=== PATIENT | female | born 1945 | race Two or more races ===

== ENCOUNTER 2023-05-14 21:06 | Emergency (ER) | payer OTHER ==
[~2023-05-14] VITALS: Ht 167.6 cm; Wt 103.3 kg
[~2023-05-14 21:06] MED LIST: APIX5TAB PO; AZIT-81 PO; DOC100C PO; DOXY-346 PO; FLUO20CA19 PO; GABA300C PO; HUMULOG; LANTUS SUBCUT; LEVO25TA6 PO; METF100097 PO; PANTOPRAZOLE 40MG TABLETS PO; SENN8.6T21 PO; SIMV40TA18 PO; VALS160T53 PO
[2023-05-14 22:24] LABS: Basophils # (auto) 0 10 ^3/uL (0-0.2); Eosinophils # (auto) 0.3 10 ^3/uL (0-0.8); Eosinophils % (auto) 3.1 % (0.0-7.0); Mean Corpuscular Volume 81.3 fL (80.0-100.0); Nucleated Red Blood Cells % 0.1 %; White Blood Cell 10.9 10^3/uL (4.4-10.8)
[2023-05-14 22:25] LABS: Basophils % (auto) 0.3 % (0.0-2.0); Hematocrit 37.5 % (36.0-46.0); Lymphocytes # (auto) 1.8 10 ^3/uL (0.4-5.4); Lymphocytes % (auto) 16.3 % (10.0-50.0); Monocytes # (auto) 1.2 10 ^3/uL (0-1.3); Monocytes % (auto) 11.4 % (0.0-12.0); Neutrophils # (auto) 7.5 10 ^3/uL (1.6-8.6); Neutrophils % (auto) 68.9 % (37.0-80.0); Red Blood Cells 4.61 10^6/uL (4.0-5.20); Red Cell Distribution Width 14.5 % (11.8-14.3)
[2023-05-14 22:40] LABS: Albumin 3.4 g/dL (3.4-5.0); Calcium 8.8 mg/dL (8.5-10.1)
[2023-05-14 22:44] LABS: BUN/Creatinine Ratio 14.1 (10.0-20.0); Bilirubin, Total 0.3 mg/dL (0.2-1.0); Potassium 4.4 mmol/L (3.5-5.1); Total Protein 7.2 g/dL (6.4-8.2)
[2023-05-15 01:53] VITALS: BP 133/56
== END 2023-05-15 01:57 | disposition home or self-care (01) ==
LOC: ER 21:11
DX: N39.0 Urinary tract infection, site not specified (principal); E11.9 Type 2 diabetes mellitus without complications; E78.5 Hyperlipidemia, unspecified; I10 Essential (primary) hypertension; R06.02 Shortness of breath
CPT/HCPCS: 36415; 71045; 80053; 83880; 84484; 85025; 93005

== ENCOUNTER 2023-05-26 15:55 | Emergency (ER) | payer OTHER ==
[~2023-05-26] VITALS: Ht 165.1 cm; Wt 100.0 kg
[2023-05-26 17:04] LABS: Basophils # (auto) 0.1 10 ^3/uL (0-0.2); Basophils % (auto) 1.3 % (0.0-2.0); Eosinophils # (auto) 0.3 10 ^3/uL (0-0.8); Eosinophils % (auto) 2.4 % (0.0-7.0); Hematocrit 36.8 % (36.0-46.0); Hemoglobin 11.7 g/dL (12.2-16.2); Lymphocytes # (auto) 2.3 10 ^3/uL (0.4-5.4); Lymphocytes % (auto) 20.9 % (10.0-50.0); Mean Corpuscular Hemoglobin 26.2 pg (28.0-32.0); Mean Corpuscular Hgb Conc. 31.8 g/dL (32.0-36.0); Mean Corpuscular Volume 82.2 fL (80.0-100.0); Monocytes # (auto) 1.2 10 ^3/uL (0-1.3); Monocytes % (auto) 11.1 % (0.0-12.0); Neutrophils % (auto) 64.3 % (37.0-80.0); Nucleated Red Blood Cells % 0.1 %; Red Blood Cells 4.47 10^6/uL (4.0-5.20); Red Cell Distribution Width 14.8 % (11.8-14.3); White Blood Cell 10.9 10^3/uL (4.4-10.8)
[2023-05-26 17:25] LABS: Albumin 3.5 g/dL (3.4-5.0); Calcium 8.9 mg/dL (8.5-10.1); Potassium 4.3 mmol/L (3.5-5.1)
[2023-05-26 17:27] LABS: BUN/Creatinine Ratio 14.4 (10.0-20.0); Bilirubin, Total 0.4 mg/dL (0.2-1.0); Total Protein 7.7 g/dL (6.4-8.2)
[2023-05-26 19:02] VITALS: BP 145/83
== END 2023-05-26 19:07 | disposition home or self-care (01) ==
LOC: ER 15:55 → EDBD 15:55 → ER 19:03
DX: R53.1 Weakness (principal); E11.9 Type 2 diabetes mellitus without complications; G30.9 Alzheimer's disease, unspecified; I25.10 Atherosclerotic heart disease of native coronary artery without angina pectoris; E78.5 Hyperlipidemia, unspecified; I10 Essential (primary) hypertension; Z88.0 Allergy status to penicillin
CPT/HCPCS: 36415; 71045; 80053; 84484; 85025; 93005

== ENCOUNTER 2023-10-13 12:23 | Emergency (ER) | payer OTHER ==
[~2023-10-13] VITALS: Ht 154.9 cm; Wt 100.0 kg
[2023-10-13 12:54] LABS: Basophils # (auto) 0.1 10 ^3/uL (0-0.2); Basophils % (auto) 0.6 % (0.0-2.0); Eosinophils # (auto) 0.3 10 ^3/uL (0-0.8); Eosinophils % (auto) 2.9 % (0.0-7.0); Red Cell Distribution Width 14.9 % (11.8-14.3)
[2023-10-13 12:55] LABS: Hematocrit 36.4 % (36.0-46.0); Hemoglobin 11.5 g/dL (12.2-16.2); Lymphocytes % (auto) 20.2 % (10.0-50.0); Mean Corpuscular Hemoglobin 25.8 pg (28.0-32.0); Mean Corpuscular Hgb Conc. 31.7 g/dL (32.0-36.0); Mean Corpuscular Volume 81.4 fL (80.0-100.0); Monocytes % (auto) 10.2 % (0.0-12.0); Neutrophils # (auto) 6.4 10 ^3/uL (1.6-8.6); Neutrophils % (auto) 66.1 % (37.0-80.0); Nucleated Red Blood Cells % 0.1 %; Red Blood Cells 4.48 10^6/uL (4.0-5.20); White Blood Cell 9.7 10^3/uL (4.4-10.8)
[2023-10-13 13:26] LABS: Alanine Aminotransferase 18 U/L (7-40); Alkaline Phosphatase 116 U/L (46-116); Anion Gap 6 (5-15); Aspartate Aminotransferase 24 U/L (13-40); BUN/Creatinine Ratio 22.4 (10.0-20.0); Blood Urea Nitrogen 34 mg/dL (9-23); Calcium 9.1 mg/dL (8.5-10.1); Carbon Dioxide 27 mmol/L (20-30); Chloride 101 mmol/L (98-107); Glucose 298 mg/dL (74-106); Potassium 5.1 mmol/L (3.5-5.1); Sodium 134 mmol/L (136-145)
[2023-10-13 13:27] LABS: Albumin 3.9 g/dL (3.2-4.8); Bilirubin, Total 0.3 mg/dL (0.2-1.0); Total Protein 6.9 g/dL (5.7-8.2)
[2023-10-13 13:38] VITALS: PULSE 60; RESP 10; O2SAT 97
[2023-10-13] MEDS ORDERED: SODIUM CHLORIDE 0.9% 500 ML IV ONE (15:15)
[2023-10-13 16:19] LABS: Urine Bacteria NONE SEEN /hpf (None Seen); Urine Blood Negative /uL (Negative); Urine Clarity Clear (Clear); Urine Color Colorless (Yellow); Urine Mucus FEW (None Seen); Urine Protein, UAD Negative (Negative); Urine Specific Gravity 1.015 (1.001-1.035); Urine Urobilinogen Normal (Negative); Urine WBC 1 /hpf (0 - 5)
[2023-10-13] MEDS ORDERED: MECLIZINE HCL 25 MG TAB PO ONE (17:30)
[2023-10-13 19:30] VITALS: PULSE 68; RESP 20; O2SAT 96
[2023-10-13] MEDS ORDERED: hydrALAZINE HCL 20 MG/ML VL IV PRN (23:45)
[2023-10-13] MEDS ORDERED: DEXTROSE (50%) 50ML SYRG IV PRN (23:45)
[2023-10-14] MEDS: APIXABAN 5 MG TAB PO SCH ×2 (00:03→11:16)
[2023-10-14] MEDS: GABAPENTIN 300 MG CAP PO SCH ×2 (06:56→14:13)
[2023-10-14] MEDS: InsuLIN REG 1unit/0.01ml Soln (100units/ml) SC SCH ×2 (06:59→11:46)
[2023-10-14] MEDS: ACCU-CHEK COMFORT CURVE STRIP VI SCH ×2 (06:59→11:47)
[2023-10-14] MEDS ORDERED: LEVOTHYROXINE SODIUM 25 MCG TAB PO SCH (07:00)
[2023-10-14] MEDS ORDERED: PANTOPRAZOLE 40 MG TAB PO SCH (10:00)
[2023-10-14] MEDS ORDERED: FLUoxetine HCL 20 MG CAP PO SCH (10:00)
[2023-10-14] MEDS ORDERED: VALSARTAN 80 MG TAB PO SCH (10:00)
[2023-10-14 13:46] VITALS: BP 160/65; TEMP 98.4
[2023-10-14 13:47] VITALS: PULSE 70; RESP 18; O2SAT 97
[2023-10-14] MEDS ORDERED: ATORVASTATIN 20 MG TAB PO SCH (22:00)
[2023-10-14] MEDS ORDERED: InsuLIN REG 1unit/0.01ml Soln (100units/ml) SC SCH (22:00)
== END 2023-10-14 16:43 | disposition home or self-care (01) ==
LOC: ER 12:23 → EDBD 12:23 → ER 10-14 16:43
DX: R42 Dizziness and giddiness (principal); E11.65 Type 2 diabetes mellitus with hyperglycemia; E78.5 Hyperlipidemia, unspecified; I10 Essential (primary) hypertension; Z91.81 History of falling; Z88.0 Allergy status to penicillin
CPT/HCPCS: 36415; 70450; 72125; 80053; 81001; 82962; 84484; 85025; 93005; 96372; 96374; 97163; 99285; J0360; J1815; J8597

== ENCOUNTER 2024-01-03 13:29 | Emergency (ER) | payer OTHER, MEDICAID ==
[~2024-01-03] VITALS: Ht 162.6 cm; Wt 136.0 kg
[2024-01-03 15:10] VITALS: BP 149/56; PULSE 75; RESP 20; O2SAT 97
== END 2024-01-03 17:03 | disposition home or self-care (01) ==
LOC: EDBD 13:29 → ER 13:29
DX: S52.501A Unspecified fracture of the lower end of right radius, initial encounter for closed fracture (principal); S80.01XA Contusion of right knee, initial encounter; E11.9 Type 2 diabetes mellitus without complications; E78.5 Hyperlipidemia, unspecified; I10 Essential (primary) hypertension; Z88.0 Allergy status to penicillin; W18.09XA Striking against other object with subsequent fall, initial encounter; Y93.89 Activity, other specified; Y92.89 Other specified places as the place of occurrence of the external cause; Y99.8 Other external cause status
CPT/HCPCS: 29125; 71045; 73090; 73590

== ENCOUNTER 2025-02-04 09:12 | Inpatient (IN) | payer OTHER, MEDICAID ==
[~2025-02-04] VITALS: Ht 165.1 cm; Wt 96.2 kg
[2025-02-04] MEDS: IPRATROPIUM BROM 0.5 MG/2.5ML INH SOL ONE (08:44)
[2025-02-04] MEDS: ALBUTEROL SULF 2.5 MG/0.5ML(0.5%) NEB SOLN ONE (08:44)
[~2025-02-04 09:12] MED LIST changes: +AZIT-185 PO; -AZIT-81 PO
[2025-02-04 09:30] VITALS: PULSE 72; RESP 26; O2SAT 94
[2025-02-04] MEDS: ALBUTEROL SULF 2.5 MG/0.5ML(0.5%) NEB SOLN NEB ONE (09:46)
[2025-02-04] MEDS: IPRATROPIUM BROM 0.5 MG/2.5ML INH SOL NEB ONE (09:46)
[2025-02-04 09:54] LABS: Basophils # (auto) 0.1 10 ^3/uL (0-0.2); Basophils % (auto) 0.6 % (0.0-2.0); Chloride 100 mmol/L (98-107); Eosinophils # (auto) 0.1 10 ^3/uL (0-0.8); Eosinophils % (auto) 0.7 % (0.0-7.0); Hematocrit 41.7 % (36.0-46.0); Hemoglobin 13.1 g/dL (12.2-16.2); Lymphocytes # (auto) 1.3 10 ^3/uL (0.4-5.4); Lymphocytes % (auto) 11.6 % (10.0-50.0); Mean Corpuscular Hgb Conc. 31.5 g/dL (32.0-36.0); Mean Corpuscular Volume 85.6 fL (80.0-100.0); Monocytes # (auto) 1.1 10 ^3/uL (0-1.3); Monocytes % (auto) 9.8 % (0.0-12.0); Neutrophils # (auto) 8.5 10 ^3/uL (1.6-8.6); Neutrophils % (auto) 77.3 % (37.0-80.0); Nucleated Red Blood Cells % 0.1 %; Platelet Count (auto) 237 10^3/uL (140-450); Potassium 4.6 mmol/L (3.5-5.1); Red Blood Cells 4.87 10^6/uL (4.0-5.20); Red Cell Distribution Width 13.5 % (11.8-14.3); Sodium 133 mmol/L (136-145); White Blood Cell 11.1 10^3/uL (4.4-10.8)
[2025-02-04 09:55] LABS: Anion Gap 8 (5-15); Calcium 9.9 mg/dL (8.7-10.4); Carbon Dioxide 25 mmol/L (20-31)
[2025-02-04 10:00] LABS: BUN/Creatinine Ratio 12.9 (10.0-20.0); Blood Urea Nitrogen 18 mg/dL (9-23)
--- NOTE | 2025-02-04 10:00 | ED.PDOC ---
SOB-HPI HPI Comments 79 y.o female with PMHx of Alzheimer, HTN, and DM, presents to the ED for a chief complaint SOB. EMS reports patient was diagnosed with bronchitis 2 days ago at [facility] and given antibiotics but patient's state worsened. Patient was 86-87% on room air on scene, EMS placed patient on 10 liters non rebreather increasing saturation levels to 90-100%. Patient's son reported patient is more altered than her usual baseline due to Alzheimer. Patient has oxygen at home as needed. 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: No Pertinent 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 ELL TEACHER History Family History Family History: Unknown Social History Smoker: Non-Smoker Alcohol: Denies ETOH Use Drugs: Denies Drug Use Lives In: Home Unable to Obtain due to: Altered Mental Status, Other (Alzheimers ) Physical Exam General Appearance: Moderate Distress, Other (More altered than usual ) HEENT: Normal ENT Inspection, Pharynx Normal, TMs Normal Neck: Full Range of Motion, Non-Tender, Normal, Normal Inspection Respiratory: Decreased Breath Sounds (bilaterally equally ) Cardiovascular: No Edema, No JVD, No Murmur, No Gallop, Normal Peripheral Pulses, Regular Rate/Rhythm Breast Exam: Deferred Gastrointestinal: No Organomegaly, Non Tender, No Pulsatile Mass, Normal Bowel Sounds, Soft Genitalia: Deferred Pelvic: Deferred Rectal: Deferred Extremities: Pedal edema (trace edema ) Musculoskeletal : Apperance: Normal Neurologic: Alert, 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 Was a procedure done?: No Differential Dx Differential Diagnosis: Asthma, Bronchitis, CHF, COPD, Myocardial infarction, Pneumonia, Pulmonary Embolism, Respiratory Distress, URI X-Ray, Labs, Meds, VS Vital Signs Date Time Temp Pulse Resp B/P (MAP) Pulse Ox O2 Delivery O2 Flow Rate FiO2 02/04/25 10:22 152/58 02/04/25 10:00 91 20 116/55 (75) 97 02/04/25 09:47 17 98 Non-Rebreather 15 N/A 02/04/25 09:30 72 26 94 Non-Rebreather 15 N/A 02/04/25 09:30 97.8 74 26 152/58 (89) 96 97.8 02/04/25 09:20 67 02/04/25 09:17 97.4 76 17 197/84 (121) 99 Lab Test 02/04/25 12:00 02/04/25 10:34 02/04/25 09:36 Range/Units Influenza Type A Antigen Pending Influenza Type B Antigen Pending SARS-CoV-2 Antigen (Rapid) Pending Troponin I High Sensitivity 64 *H 66 *H </=34 ng/L White Blood Count 11.1 H 4.4-10.8 10^3/uL Red Blood Count 4.87 4.0-5.20 10^6/uL Hemoglobin 13.1 12.2-16.2 g/dL Hematocrit 41.7 36.0-46.0 % Mean Corpuscular Volume 85.6 80.0-100.0 fL Mean Corpuscular Hemoglobin 27.0 L 28.0-32.0 pg Mean Corpuscular Hemoglobin Concent 31.5 L 32.0-36.0 g/dL Red Cell Distribution Width 13.5 11.8-14.3 % Platelet Count 237 140-450 10^3/uL Mean Platelet Volume 10.1 6.9-10.8 fL Neutrophils (%) (Auto) 77.3 37.0-80.0 % Lymphocytes (%) (Auto) 11.6 10.0-50.0 % Monocytes (%) (Auto) 9.8 0.0-12.0 % Eosinophils (%) (Auto) 0.7 0.0-7.0 % Basophils (%) (Auto) 0.6 0.0-2.0 % Neutrophils # (Auto) 8.5 1.6-8.6 10 ^3/uL Lymphocytes # (Auto) 1.3 0.4-5.4 10 ^3/uL Monocytes # (Auto) 1.1 0-1.3 10 ^3/uL Eosinophils # (Auto) 0.1 0-0.8 10 ^3/uL Basophils # (Auto) 0.1 0-0.2 10 ^3/uL Nucleated Red Blood Cells 0.1 % Sodium Level 133 L 136-145 mmol/L Potassium Level 4.6 3.5-5.1 mmol/L Chloride Level 100 98-107 mmol/L Carbon Dioxide Level 25 20-31 mmol/L Anion Gap 8 5-15 Blood Urea Nitrogen 18 9-23 mg/dL Creatinine 1.39 H 0.550-1.02 mg/dL Glomerular Filtration Rate Calc 38 >90 mL/min BUN/Creatinine Ratio 12.9 10.0-20.0 Serum Glucose 322 H 74-106 mg/dL Calcium Level 9.9 8.7-10.4 mg/dL B-Type Natriuretic Peptide 454.52 0-100 pg/mL Current Medications Medications (Trade) Dose Ordered Sig/Amisha Route Start Time Stop Time Status Last Admin Furosemide (Lasix Injection) 40 mg ONCE ONCE IV 02/04/25 09:30 02/04/25 09:32 DC 02/04/25 10:22 Albuterol (Ventolin Medneb) 5 mg ONCE ONCE NEB 02/04/25 09:30 02/04/25 09:32 DC 02/04/25 09:46 Ipratropium [place] (Atrovent Medneb) 0.5 mg ONCE ONCE NEB 02/04/25 09:30 02/04/25 09:32 DC 02/04/25 09:46 [place] [id number] Ph: [phone] DIAGNOSTIC IMAGING Diagnostic Imaging Report : [id number] Signed PATIENT: LISA BARBOURT: [id number] UNIT: [id number] : 1945 LOC: ER ROOM / BED: / AGE / SEX: 79 / F ADM STATUS: REG ER SERVICE 6 ORDERING PHYSICIAN: PARISA WILEY MD PROCEDURE(s): CXRP - CHEST PORTABLE REASON: sob ORDER NUMBER(s): [id number], ACCESSION NUMBER(s): [id number] CHEST RADIOGRAPH Indication: sob Technique: Single frontal view of the chest was obtained Comparison: XY CHEST XRAY 1 VIEW on DOS: 01/03/24 FINDINGS: Lines and Tubes: Dual-chamber pacemaker with right atrial and ventricular leads. Lungs: Left basilar opacity. Pleura: No effusion. No pneumothorax. Cardiomediastinal contours: Lucency overlies the cardiac silhouette consistent with hiatal hernia. Bones: No acute osseous abnormality. IMPRESSION: 1. Left basilar opacities which may reflect atelectasis or pneumonia. 2. Hiatal hernia. ATED BY: RONAL FRIEDMAN MD DICTATED DATE/TIME: 02/04/25 101 SIGNED BY: RONAL FRIEDMAN MD SIGNED DATE/TIME: 02/04/25 101 CC: Time of 1ST Reevaluation: 09:46 Reevaluation 1ST: Unchanged Patient Education/Counseling: Other Family Education/Counseling: No Family Present Additional Information - I reviewed the following notes from patient's past medical encounters: 01/03/24 right wrist fracture - The following tests were ordered, and results were reviewed by me: Covid and Influenza swabs, EKG, PHA, Lab including BNP, BMP, CBC and troponin x 3 - Additional information was gathered from interviewing the following i ndependent Historian: Paramedics - I reviewed and agreed with the following test results read by other provider: CXR - I discussed treatments and results with medical personnel and: Family Departure 1 Departure Time of Disposition: 12:46 Impression: Primary Impression: Altered mental state Qualified Codes: R41.0 - Disorientation, unspecified Additional Impressions: Pneumonia Qualified Codes: J18.9 - Pneumonia, unspecified organism Elevated troponin Renal insufficiency Respiratory failure with hypoxia Qualified Codes: J96.21 - Acute and chronic respiratory failure with hypoxia Disposition: ADMITTED INPATIENT Admit to: Tele Condition: Serious Critical Care Note Critical Care Time?: Yes (55 min-critical care time only) Critical care comment: Due to concerns for patients condition deteriorating, the care required my highest level of attention and readiness to intervene. I assessed the patient, reviewed the medical records, ordered the appropriate tests and treatments, then reassessed for results and responsiveness. I communicated with medical personnel and consultants and formulated a plan of care. Total critical care time excludes any procedures Stability Stability form required: No Heart Score Heart Score: Heart Score Response (Comments) Value History Slightly Suspicious 0 EKG Normal 0 Age >65 2 Risk Factors >3 or Hx ASHD 2 Troponin Normal limit 0 Total 4 I personally scribed for PARISA WILEY MD ([facility]) on 02/04/25 at 10:00. Electronically submitted by Beronica Jones ([facility] I personally scribed for [facility] WI[facility] MD ([facility] on 02/04/25 at 10:55. Electronically submitted by Beronica Jones ([facility]). PARISA WILEY MD Feb 04, 2025 10:00
[2025-02-04 10:05] LABS: Glucose 322 mg/dL (74-106)
--- NOTE | 2025-02-04 10:20 | DVH ---
CHEST RADIOGRAPH Indication: sob Technique: Single frontal view of the chest was obtained Comparison: XY CHEST XRAY 1 VIEW on DOS: 01/03/24 FINDINGS: Lines and Tubes: Dual-chamber pacemaker with right atrial and ventricular leads. Lungs: Left basilar opacity. Pleura: No effusion. No pneumothorax. Cardiomediastinal contours: Lucency overlies the cardiac silhouette consistent with hiatal hernia. Bones: No acute osseous abnormality. IMPRESSION: 1. Left basilar opacities which may reflect atelectasis or pneumonia. 2. Hiatal hernia.
[2025-02-04] MEDS: FUROSEMIDE 40 MG/4 ML VIAL IV ONE (10:22)
[2025-02-04 12:56] LABS: Rapid Influenza A Negative (Negative); Rapid Influenza B Negative (Negative)
[2025-02-04 12:57] LABS: COVID19 ANTIGEN SOFIA FIA NEGATIVE (NEGATIVE)
[2025-02-04] MEDS: cefTRIAXone 1GM/50ML D5W 50 ML IV ONE (13:14)
[2025-02-04] MEDS: ASPirin 81 mg TAB PO ONE (13:14)
[2025-02-04] MEDS ORDERED: IPRATROPIUM BROM 0.5 MG/2.5ML INH SOL NEB PRN (15:30)
[2025-02-04] MEDS ORDERED: ALBUTEROL SULF 2.5 MG/0.5ML(0.5%) NEB SOLN NEB PRN (15:30)
[2025-02-04] MEDS ORDERED: AZITHROMYCIN 500MG/ 250ML 250 ML IV ONE (15:30)
[2025-02-04] MEDS ORDERED: DEXTROSE (50%) 50ML SYRG IV PRN (15:45)
[2025-02-04] MEDS: AZITHROMYCIN 500MG/ 250ML 250 ML IV ONE (15:45)
[2025-02-04] MEDS ORDERED: DICY20TA2 PO (15:47)
--- NOTE | 2025-02-04 16:07 | DVHHP2 ---
History of Present Illness Reason for Visit: Shortness of breath History of Present Illness This 79-year-old female with past medical history of diabetes, hypertension, Alzheimer's, hyperlipidemia, hypothyroidism, neuropathy, s/p PPM presents to the ED with a chief complaint of shortness of breath. The patient is alert and jaspal ented to name and poor historian. Sumaya reports patient symptoms started a few days ago. Grandson states that the patient was seen by her PCP two days ago and was given oral antibiotics. Grandson states symptoms had worsened, shortness of breath with hypoxemia for which prompted the ED visit. The patient denies fever, chills, chest pain, abdominal pain or other acute symptoms. Past Medical History As stated in HPI Past Surgical History Permanent pacemaker Family History Reviewed, non-contributory to the management of this case. Past Social History The patient lives at home, denies smoking, alcohol or illicit drugs abuse. Review of Systems Constitutional: Yes: Malaise; No: Fever, Chills, Sweats, Weakness, Other Eyes: No: Pain, Vision change, Conjunctivae inflammation, Eyelid inflammation, Other, Redness ENT: No: Ear pain, Ear discharge, Nose pain, Nose discharge, Nose congestion, Mouth pain, Mouth swelling, Throat pain, Throat swelling, Other Respiratory: Cough, Shortness of breath, Sputum; No: Dry, SOB with excertion, Wheezing, Hemoptysis, Pleuritic Pain, Wheezing, Other Cardiovascular: No: Chest Pain, Palpitations, Orthopnea, Paroxysmal Noc. Dyspnea, Edema, Lt Headedness, Other Gastrointestinal: No: Nausea, Vomiting, Abdominal Pain, Diarrhea, Constipation, Melena, Hematochezia, Other Genitourinary: No Dysuria, No Frequency, No Incontinence, No Hematuria, No Retention, No Other Musculoskeletal: No: other, neck pain, shoulder pain, arm pain, back pain, hand pain, leg pain, foot pain Skin: No: Rash, Lesions, Jaundice, Bruising, Other Neurological: No: Weakness, Numbness, Incoordination, Change in speech, Confusion, Seizures, Other Allergies: Coded Allergies: Penicillins (Verified Allergy, Unknown, 05/26/23) Uncoded Allergies: CONTRAST (Allergy, Unknown, 05/14/23) IV CONTRAST (Allergy, Unknown, 05/14/23) Medications Current Medications Medications Dose Ordered Sig/Amisha Route Start Time Stop Time Status Last Admin Dose Admin Azithromycin 250 ml @ 125 mls/hr DAILY IV 02/05/25 10:00 UNV Ceftriaxone Sodium 50 ml @ 100 mls/hr DAILY@09 IV 02/05/25 09:00 UNV Albuterol 2.5 mg Q4HPRN PRN NEB 02/04/25 15:30 UNV Albuterol 2.5 mg Q6HR NEB 02/04/25 18:00 UNV Ipratropium [place] 0.5 mg Q4HPRN PRN NEB 02/04/25 15:30 UNV Ipratropium [place] 0.5 mg Q6HR NEB 02/04/25 18:00 UNV Exam Vital Signs Vital Signs Date Time Temp Pulse Resp B/P (MAP) Pulse Ox O2 Delivery O2 Flow Rate FiO2 02/04/25 14:00 94 16 136/58 (84) 99 02/04/25 09:47 Non-Rebreather 15 N/A 02/04/25 09:30 97.8 97.8 General Appearance: Alert, mild distress HEENT: Atraumatic, PERRLA, EOMI, Mucous membr. moist/pink Respiratory: Other ( Oxymizer 10L. Rales lung sounds, cough with phlegm) Cardiovascular: Other (Paced rhythm) Abdominal: Normal bowel sounds, Soft Extremities: No clubbing, No cyanosis, No edema, Normal pulses Skin: No rashes, No significant lesion Neuro: Normal speech, Other (Episodes of confusion) Psych/Mental Status: Mood NL Labs/Xrays Labs Test 02/04/25 12:52 02/04/25 12:00 02/04/25 09:36 Range/Units Troponin I High Sensitivity 61 *H </=34 ng/L Influenza Type A Antigen Negative Negative Influenza Type B Antigen Negative Negative SARS-CoV-2 Antigen (Rapid) Negative NEGATIVE White Blood Count 11.1 H 4.4-10.8 10^3/uL Red Blood Count 4.87 4.0-5.20 10^6/uL Hemoglobin 13.1 12.2-16.2 g/dL Hematocrit 41.7 36.0-46.0 % Mean Corpuscular Volume 85.6 80.0-100.0 fL Mean Corpuscular Hemoglobin 27.0 L 28.0-32.0 pg Mean Corpuscular Hemoglobin Concent 31.5 L 32.0-36.0 g/dL Red Cell Distribution Width 13.5 11.8-14.3 % Platelet Count 237 140-450 10^3/uL Mean Platelet Volume 10.1 6.9-10.8 fL Neutrophils (%) (Auto) 77.3 37.0-80.0 % Lymphocytes (%) (Auto) 11.6 10.0-50.0 % Monocytes (%) (Auto) 9.8 0.0-12.0 % Eosinophils (%) (Auto) 0.7 0.0-7.0 % Basophils (%) (Auto) 0.6 0.0-2.0 % Neutrophils # (Auto) 8.5 1.6-8.6 10 ^3/uL Lymphocytes # (Auto) 1.3 0.4-5.4 10 ^3/uL Monocytes # (Auto) 1.1 0-1.3 10 ^3/uL Eosinophils # (Auto) 0.1 0-0.8 10 ^3/uL Basophils # (Auto) 0.1 0-0.2 10 ^3/uL Nucleated Red Blood Cells 0.1 % Sodium Level 133 L 136-145 mmol/L Potassium Level 4.6 3.5-5.1 mmol/L Chloride Level 100 98-107 mmol/L Carbon Dioxide Level 25 20-31 mmol/L Anion Gap 8 5-15 Blood Urea Nitrogen 18 9-23 mg/dL Creatinine 1.39 H 0.550-1.02 mg/dL Glomerular Filtration Rate Calc 38 >90 mL/min BUN/Creatinine Ratio 12.9 10.0-20.0 Serum Glucose 322 H 74-106 mg/dL Calcium Level 9.9 8.7-10.4 mg/dL B-Type Natriuretic Peptide 454.52 0-100 pg/mL Assessment/Plan Assessment/Plan # Acute respiratory failure with hypoxemia # pneumonia Admit to telemetry unit Empiric antibiotic azithromycin and ceftriaxone Blood and sputum culture O2 supplement DuoNeb treatment Repeat x-ray in a.m. # hypertension hydralazine as needed Monitor # hyperlipidemia Statins Check lipid panel # diabetes type 2 # diabetic peripheral neuropathy ISS Lantus Gabapentin # depression/anxiety Fluoxetine # YVONNE on CKD Kerndia Monitor Soft IV fluid # hypothyroidism Levothyroxine Check TSH # GERD PPI Domperidone # dual-chamber pacemaker Monitor # obesity # Alzheimer DVT prophylaxis Medical plan discussed with patient and grandson Plan discussed with: Patient, Other (RN) My Orders Orders - LIA GARDUNOP Procedure Category Date Status Time Blood Culture MOMO 02/04/25 Logged 15:26 Respiratory Culture MOMO 02/04/25 Logged W/ Gs 15:26 Azithromycin 500mg/ PHA 02/05/25 Logged 250ml (Zithromax 50 10:00 Azithromycin 500mg/ PHA 02/04/25 Logged 250ml (Zithromax 50 15:30 Ceftriaxone 1gm/50ml PHA 02/05/25 Logged D5w (Rocephin) 09:00 Albuterol Medneb PHA 02/04/25 Logged (Ventolin Medneb) 15:30 Albuterol Medneb PHA 02/04/25 Logged (Ventolin Medneb) 18:00 Ipratropium Medneb PHA 02/04/25 Logged (Atrovent Medneb) 15:30 Ipratropium Medneb PHA 02/04/25 Logged (Atrovent Medneb) 18:00 Chest Portable XY 02/05/25 Logged 04:00 Urinalysis LAB 02/04/25 Logged 15:26 B-Type Natriuretic LAB 02/05/25 Verified Peptide 04:00 Admit ADMIT 02/04/25 Transmitted 15:36 Code Status CODE 02/04/25 Transmitted 15:36 Enoxaparin Sodium PHA 02/05/25 Transmitted (Lovenox) 10:00 Fall Risk Precautions CA 02/04/[address] 15:36 Complete Blood Count LAB 02/05/25 Verified 04:00 Comprehensive LAB 02/05/25 Verified Metabolic Panel 04:00 Cardiac DIET 02/04/25 Transmitted Diet-2gna,Lofat,Lochol Dinner Condition: Fair CA 02/04/25 Transmitted 15:36 Hemoglobin A1c LAB 02/04/25 Transmitted 15:36 Date of Service: Feb 04, 2025 Billing Provider: LIA GARDUNO Common Visit Codes: [id number] INP/OBS CARE (HIGH) LIA GARDUNOP Feb 04, 2025 16:06
[2025-02-04 16:18] LABS: LDL Cholesterol 90 mg/dL (< 100); Triglycerides 127 mg/dL (< 150)
[2025-02-04 16:20] LABS: Cholesterol 156 mg/dL (< 200); HDL Cholesterol 49 mg/dL (40-59)
[2025-02-04] MEDS: ACCU-CHEK COMFORT CURVE STRIP VI SCH (17:00)
[2025-02-04] MEDS: InsuLIN REG 1unit/0.01ml Soln (100units/ml) SC SCH (17:50)
[2025-02-04] MEDS ORDERED: IPRATROPIUM BROM 0.5 MG/2.5ML INH SOL NEB SCH (18:00)
[2025-02-04] MEDS ORDERED: ALBUTEROL SULF 2.5 MG/0.5ML(0.5%) NEB SOLN NEB SCH (18:00)
[2025-02-04 18:50] VITALS: PULSE 64; RESP 21; O2SAT 100
[2025-02-04 18:56] VITALS: PULSE 63; RESP 26; O2SAT 100
[2025-02-04] MEDS: IPRATROPIUM BROM 0.5 MG/2.5ML INH SOL NEB SCH (19:45)
[2025-02-04] MEDS: ALBUTEROL SULF 2.5 MG/0.5ML(0.5%) NEB SOLN NEB SCH (19:45)
[2025-02-04 19:47] VITALS: PULSE 80; RESP 16; O2SAT 96
[2025-02-04] MEDS: INSULIN LANTUS (GLARGINE) 1 /0.01ml (100units/ml) SC SCH (22:15)
[2025-02-04] MEDS: ATORVASTATIN 20 MG TAB PO SCH (22:15)
[2025-02-04] MEDS: GABAPENTIN 300 MG CAP PO SCH (22:15)
[2025-02-04] MEDS: DICYCLOMINE HCL 10 MG CAP PO SCH (22:15)
[2025-02-04 23:10] VITALS: BP 157/61; PULSE 69; RESP 18; TEMP 97.8; O2SAT 96
[2025-02-05] VITALS (18 sets, daily range): BP systolic 138–155; BP diastolic 59–84; PULSE 65–88; RESP 17–22; TEMP 97.6–98.5; O2SAT 98–100
[2025-02-05] MEDS: hydrALAZINE HCL 20 MG/ML VL IV PRN (04:48)
[2025-02-05] MEDS: PANTOPRAZOLE 40 MG TAB PO SCH (05:30)
[2025-02-05] MEDS: LEVOTHYROXINE SODIUM 50 MCG TAB PO SCH (05:30)
[2025-02-05 06:19] LABS: Basophils # (auto) 0.1 10 ^3/uL (0-0.2); Basophils % (auto) 0.6 % (0.0-2.0); Eosinophils # (auto) 0.1 10 ^3/uL (0-0.8); Eosinophils % (auto) 0.9 % (0.0-7.0); Hematocrit 35.8 % (36.0-46.0); Hemoglobin 11.8 g/dL (12.2-16.2); Lymphocytes # (auto) 1.3 10 ^3/uL (0.4-5.4); Lymphocytes % (auto) 14.7 % (10.0-50.0); Mean Corpuscular Hemoglobin 27.9 pg (28.0-32.0); Mean Corpuscular Hgb Conc. 32.9 g/dL (32.0-36.0); Monocytes # (auto) 1.4 10 ^3/uL (0-1.3); Monocytes % (auto) 15.5 % (0.0-12.0); Neutrophils # (auto) 6.2 10 ^3/uL (1.6-8.6); Neutrophils % (auto) 68.3 % (37.0-80.0); Nucleated Red Blood Cells % 0.1 %; Platelet Count (auto) 200 10^3/uL (140-450); Red Blood Cells 4.21 10^6/uL (4.0-5.20); Red Cell Distribution Width 13.2 % (11.8-14.3); White Blood Cell 9.1 10^3/uL (4.4-10.8)
[2025-02-05 06:30] LABS: Alanine Aminotransferase 15 U/L (7-40); Anion Gap 10 (5-15); BUN/Creatinine Ratio 15.1 (10.0-20.0); Calcium 9.8 mg/dL (8.7-10.4); Carbon Dioxide 26 mmol/L (20-31); Chloride 99 mmol/L (98-107); Potassium 4.2 mmol/L (3.5-5.1); Total Protein 7.4 g/dL (5.7-8.2)
[2025-02-05 06:31] LABS: Albumin 4.1 g/dL (3.2-4.8); Aspartate Aminotransferase 36 U/L (13-40)
[2025-02-05 06:35] LABS: Alkaline Phosphatase 123 U/L (46-116); Bilirubin, Total 0.3 mg/dL (0.2-1.0); Blood Urea Nitrogen 23 mg/dL (9-23); Glucose 235 mg/dL (74-106); Sodium 135 mmol/L (136-145)
[2025-02-05] MEDS: ALBUTEROL SULF 2.5 MG/0.5ML(0.5%) NEB SOLN NEB PRN (07:49)
[2025-02-05] MEDS: IPRATROPIUM BROM 0.5 MG/2.5ML INH SOL NEB PRN (07:49)
[2025-02-05] MEDS ORDERED: cefTRIAXone 1GM/50ML D5W 50 ML IV SCH (09:00)
[2025-02-05] MEDS: cefTRIAXone 1GM/50ML D5W 50 ML IV SCH (09:48)
[2025-02-05] MEDS ORDERED: AZITHROMYCIN 500MG/ 250ML 250 ML IV SCH (10:00)
[2025-02-05] MEDS: AZITHROMYCIN 500MG/ 250ML 250 ML IV SCH (10:00)
[2025-02-05] MEDS ORDERED: ENOXAPARIN SOD 40 MG/0.4 ML SYRINGE SC SCH (10:00)
[2025-02-05] MEDS: ENOXAPARIN SOD 30 MG/0.3 ML SYRINGE SC SCH (11:15)
[2025-02-05 13:56] LABS: Base Excess 0.4 mmol/L (-2.0-3.0)
--- NOTE | 2025-02-05 14:03 | DVHPN2 ---
Subjective Patient reports that her shortness of breath has improved. Reviewed: Care Plan, H&P, Labs, Medications, Previous Orders Changes from previous H/P or p: No Changes General: Per HPI Eyes: No Pain, No Vision change, No Conjunctivae inflammation, No Eyelid inflammation, No Other, No Redness ENT: No Ear pain, No Ear discharge, No Nose pain, No Nose discharge, No Nose congestion, No Mouth pain, No Mouth swelling, No Throat pain, No Throat swelling, No Other Cardiovascular: No Chest Pain, No Palpitations, No Orthopnea, No Paroxysmal Noc. Dyspnea, No Edema, No Lt Headedness, No Other Respiratory: Cough; No Dry; Shortness of breath; No SOB with excertion, No Wheezing, No Hemoptysis, No Pleuritic Pain; Sputum; No Other Gastrointestinal: No Nausea, No Vomiting, No Abdominal Pain, No Diarrhea, No Constipation, No Melena, No Hematochezia, No Other Genitourinary: No Dysuria, No Frequency, No Incontinence, No Hematuria, No Retention, No Other Musculoskeletal: No other, No neck pain, No shoulder pain, No arm pain, No back pain, No hand pain, No leg pain, No foot pain Skin: No Rash, No Lesions, No Jaundice, No Bruising, No Other Objective Vitals Vital Signs Date Time Temp Pulse Resp B/P (MAP) Pulse Ox O2 Delivery O2 Flow Rate FiO2 02/05/25 13:00 98.0 82 18 145/69 (94) 98 98.0 02/05/25 11:10 Facial BiPAP Mask 45 02/05/25 09:52 0.0 General Appearance: Alert, Oriented X3, Cooperative, mild distress, Other (Obese) HEENT: Atraumatic, PERRLA Cardiovascular: Normal S1, Normal S2 Abdomen: Normal bowel sounds Genitourinary: No Apparent Abnormalities Musculoskeletal: Normal sensory function, Normal motor function Neuro: Normal gait, Normal speech Skin: Dry, Intact Psych/Mental Status: Mental status NL, Mood NL Medications Current Medications Medications Dose Ordered Sig/Amisha Route Start Time Stop Time Status Last Admin Dose Admin Diagnostic Test (Pha) 1 strip ACHS 02/04/25 17:00 02/05/25 11:27 1 STRIP Insulin Human Regular ACHS SC 02/04/25 17:00 02/05/25 11:29 10 UNITS Dextrose 50 ml UD PRN IV 02/04/25 15:45 Hydralazine HCl 10 mg Q6HP PRN IV 02/04/25 15:45 02/05/25 04:48 10 MG Gabapentin 300 mg TID PO 02/04/25 22:00 02/05/25 05:31 300 MG Dicyclomine HCl 20 mg TID PO 02/04/25 22:00 02/05/25 05:29 20 MG Fluoxetine HCl 20 mg DAILY PO 02/05/25 10:00 Levothyroxine Sodium 125 mcg QAM@0600 PO 02/05/25 06:00 02/05/25 05:30 125 MCG Insulin Glargine 20 units HS SC 02/04/25 22:00 02/04/25 22:15 20 UNITS Aspirin 81 mg DAILY PO 02/05/25 10:00 Atorvastatin Calcium 20 mg HS PO 02/04/25 22:00 02/04/25 22:15 20 MG Pantoprazole Sodium 40 mg DAILY@0600 PO 02/05/25 06:00 02/05/25 05:30 40 MG Ipratropium [place] 0.5 mg Q4HPRN PRN NEB 02/04/25 15:45 02/05/25 07:49 0.5 MG Ipratropium [place] 0.5 mg Q6HR NEB 02/04/25 18:00 02/05/25 11:09 0.5 MG Enoxaparin Sodium 30 mg DAILY SC 02/05/25 10:00 02/05/25 11:15 30 MG Ceftriaxone Sodium 50 ml @ 100 mls/hr DAILY@09 IV 02/05/25 09:00 02/05/25 09:48 100 MLS/HR Azithromycin 250 ml @ 125 mls/hr DAILY IV 02/05/25 10:00 02/05/25 10:00 125 MLS/HR Albuterol 2.5 mg Q4HPRN PRN NEB 02/04/25 15:45 02/05/25 07:49 2.5 MG Albuterol 2.5 mg Q6HR NEB 02/04/25 18:00 02/05/25 11:10 2.5 MG Laboratory Results Laboratory Tests 02/05/25 05:50 Chemistry Test 02/05/25 05:50 Albumin 4.1 g/dL (3.2-4.8) Calcium Level 9.8 mg/dL (8.7-10.4) Total Protein 7.4 g/dL (5.7-8.2) Lipid panel Test 02/04/25 15:51 Cholesterol Level 156 mg/dL (< 200) HDL Cholesterol 49 mg/dL (40-59) Triglycerides Level 127 mg/dL (< 150) LFT Test 02/05/25 05:50 Alanine Aminotransferase (ALT) 15 U/L (7-40) Alkaline Phosphatase 123 U/L (46-116) H Aspartate Amino Transferase (AST) 36 U/L (13-40) Total Bilirubin 0.3 mg/dL (0.2-1.0) Blood Gas Results Test 02/05/25 13:50 Arterial Blood pH 7.383 (7.350-7.450) FiO2 % 45.0 Labs and/or images reviewed: Labs reviewed by me, Image(s) reviewed by me Assessment/Plan Assessment/Plan Impression: -acute hypoxic respiratory failure -community-acquired pneumonia, probable Gram-positive/Gram-negative etiology -CKD stage IIIA -obesity -diabetes mellitus -primary hypertension -depression -peripheral neuropathy Plan: -patient had episode of tachypnea with subjective dyspnea despite not having hypoxia this a.m.. Patient was placed on BiPAP. -repeat ABG -repeat chest x-ray -continue antibiotic therapy with Rocephin and azithromycin -regular insulin sliding scale -continue Prozac -continue gabapentin -repeat labs in a.m. -reassessment patient by myself reveals no respiratory distress at this time. After ABG, reassess for removing BiPAP at this time. Critical care time spent with patient discussing and formulating plan of care: 40 minutes. This does not include time spent performing procedures. This medical document was created using an electronic medical record system with [employer] dictation system. Although this document has been carefully reviewed, there may still be some phonetic and typographical errors. These areas are purely typographical due to imperfections of the software programs, and do not reflect any compromise in the patient's medical care. Plan discussed with: Patient, Other (RN) My Orders Orders - SPENCER HAY NP Procedure Category Date Status Time Basic Metabolic Panel LAB 02/06/25 Verified 04:00 Complete Blood Count LAB 02/06/25 Verified 04:00 Abg W/ Co-Ox RT 02/05/25 Logged 13:20 Chest Portable XY 02/06/25 Logged 04:00 Chest Xray 1 View XY 02/05/25 Logged 13:54 Date of Service: Feb 05, 2025 Billing Provider: SPENCER HAY NP Common Visit Codes: [id number] CARE 30-74 MIN SPENCER HAY NP Feb 05, 2025 14:03
--- NOTE | 2025-02-05 14:52 | DVH ---
CHEST RADIOGRAPH Indication: pna Technique: Single frontal view of the chest was obtained COMPARISON: XY CHEST PORTABLE on DOS: 02/04/25, XY CHEST XRAY 1 VIEW on DOS: 01/03/24, XY CHEST PORTABLE on DOS: 05/26/23, XY CHEST PORTABLE on DOS: 05/14/23 FINDINGS: Lines and Tubes: Left chest wall pacemaker Lungs: Congestion Pleura: No effusion. No pneumothorax. Cardiomediastinal contours: Cardiomegaly Bones: Unremarkable IMPRESSION: Pulmonary vascular congestion
[2025-02-05] MEDS: ASPirin 81 mg TAB PO SCH (16:06)
[2025-02-05] MEDS: FLUoxetine HCL 20 MG CAP PO SCH (16:07)
[2025-02-06] VITALS (22 sets, daily range): BP systolic 105–171; BP diastolic 46–67; PULSE 72–88; RESP 18–21; TEMP 98.6–99.3; O2SAT 96–100
[2025-02-06 07:35] LABS: Basophils # (auto) 0 10 ^3/uL (0-0.2); Basophils % (auto) 0.3 % (0.0-2.0); Eosinophils # (auto) 0.1 10 ^3/uL (0-0.8); Eosinophils % (auto) 1.1 % (0.0-7.0); Hematocrit 37.4 % (36.0-46.0); Hemoglobin 11.8 g/dL (12.2-16.2); Lymphocytes # (auto) 1.4 10 ^3/uL (0.4-5.4); Lymphocytes % (auto) 12.4 % (10.0-50.0); Mean Corpuscular Hemoglobin 27.1 pg (28.0-32.0); Mean Corpuscular Hgb Conc. 31.6 g/dL (32.0-36.0); Mean Corpuscular Volume 85.7 fL (80.0-100.0); Monocytes # (auto) 1.7 10 ^3/uL (0-1.3); Monocytes % (auto) 15.1 % (0.0-12.0); Neutrophils # (auto) 7.8 10 ^3/uL (1.6-8.6); Neutrophils % (auto) 71.1 % (37.0-80.0); Platelet Count (auto) 211 10^3/uL (140-450); Red Blood Cells 4.37 10^6/uL (4.0-5.20); Red Cell Distribution Width 13.5 % (11.8-14.3); White Blood Cell 10.9 10^3/uL (4.4-10.8)
[2025-02-06 07:44] LABS: Anion Gap 8 (5-15); Carbon Dioxide 27 mmol/L (20-31); Chloride 99 mmol/L (98-107); Potassium 4.1 mmol/L (3.5-5.1)
[2025-02-06 07:46] LABS: Calcium 9.7 mg/dL (8.7-10.4)
[2025-02-06 07:50] LABS: BUN/Creatinine Ratio 18.9 (10.0-20.0)
[2025-02-06 07:52] LABS: Blood Urea Nitrogen 24 mg/dL (9-23); Glucose 252 mg/dL (74-106); Sodium 134 mmol/L (136-145)
--- NOTE | 2025-02-06 08:14 | ECG ---
[facility] Test Date: 2025-02-04 Test Time: 09:20:37 Pat Name: RAULITO SALAZAR Department: ED Room: 0295T Gender: F Rough Rice Tender: MR LEMOSB: 1945 Requested By: PARISA WILEY Order Number: [id number] Reading MD: Sang Cho Measurements Intervals [place] Rate: 67 P: 0 NE: 68 QRS: -11 QRSD: 111 T: 42 QT: 398 QTc: 420 Interpretive Statements Accelerated junctional escape rhythm Unifocal PVCs LVH with secondary repolarization abnormality Electronically Signed On 02-09-2025 22:55:42 PDT by Sang Cho Please click the below link to view image of tracing.
--- NOTE | 2025-02-06 09:01 | DVH ---
CHEST RADIOGRAPH Indication: pna Technique: Single frontal view of the chest was obtained COMPARISON: XY CHEST XRAY 1 VIEW on DOS: 02/05/25, XY CHEST PORTABLE on DOS: 02/04/25, XY CHEST XRAY 1 V IEW on DOS: 01/03/24, XY CHEST PORTABLE on DOS: 05/26/23, XY CHEST PORTABLE on DOS: 05/14/23 FINDINGS: Lines and Tubes: Left chest wall pacemaker Lungs: Left lower lobe airspace disease. Pleura: No effusion. No pneumothorax. Cardiomediastinal contours: Unremarkable Bones: Unremarkable IMPRESSION: Left lower lobe airspace disease.
--- NOTE | 2025-02-06 14:18 | DVHPN2 ---
Subjective Patient with altered mental status. Reviewed: Care Plan, H&P, Labs, Medications, Previous Orders Changes from previous H/P or p: No Changes General: Per HPI Eyes: No Pain, No Vision change, No Conjunctivae inflammation, No Eyelid inflammation, No Other, No Redness ENT: No Ear pain, No Ear discharge, No Nose pain, No Nose discharge, No Nose congestion, No Mouth pain, No Mouth swelling, No Throat pain, No Throat swelling, No Other Cardiovascular: No Chest Pain, No Palpitations, No Orthopnea, No Paroxysmal Noc. Dyspnea, No Edema, No Lt Headedness, No Other Respiratory: Cough; No Dry; Shortness of breath; No SOB with excertion, No Wheezing, No Hemoptysis, No Pleuritic Pain; Sputum; No Other Gastrointestinal: No Nausea, No Vomiting, No Abdominal Pain, No Diarrhea, No Constipation, No Melena, No Hematochezia, No Other Genitourinary: No Dysuria, No Frequency, No Incontinence, No Hematuria, No Retention, No Other Musculoskeletal: No other, No neck pain, No shoulder pain, No arm pain, No back pain, No hand pain, No leg pain, No foot pain Skin: No Rash, No Lesions, No Jaundice, No Bruising, No Other Objective Vitals Vital Signs Date Time Temp Pulse Resp B/P (MAP) Pulse Ox O2 Delivery O2 Flow Rate FiO2 02/06/25 13:00 98.6 87 20 154/60 (91) 98 98.6 02/06/25 11:37 Nasal Cannula 3.0 02/06/25 08:05 32 Intake/Output Intake and Output 02/06/25 07:00 Intake Total 750 ml Balance 750 ml Intake Oral 450 ml IV Total 300 ml # Voids 4 General Appearance: Alert, Oriented X3, Cooperative, mild distress, Other (Obese) HEENT: Atraumatic, PERRLA Cardiovascular: Normal S1, Normal S2 Abdomen: Normal bowel sounds Genitourinary: No Apparent Abnormalities Musculoskeletal: Normal sensory function, Normal motor function Neuro: Normal gait, Normal speech Skin: Dry, Intact Psych/Mental Status: Mental status NL, Mood NL Medications Current Medications Medications Dose Ordered Sig/Amisha Route Start Time Stop Time Status Last Admin Dose Admin Diagnostic Test (Pha) 1 strip ACHS 02/04/25 17:00 02/06/25 11:14 1 STRIP Insulin Human Regular ACHS SC 02/04/25 17:00 02/06/25 11:16 10 UNITS Dextrose 50 ml UD PRN IV 02/04/25 15:45 Hydralazine HCl 10 mg Q6HP PRN IV 02/04/25 15:45 02/05/25 04:48 10 MG Gabapentin 300 mg TID PO 02/04/25 22:00 02/06/25 05:00 300 MG Fluoxetine HCl 20 mg DAILY PO 02/05/25 10:00 02/06/25 08:50 20 MG Levothyroxine Sodium 125 mcg QAM@0600 PO 02/05/25 06:00 02/06/25 05:00 125 MCG Insulin Glargine 20 units HS SC 02/04/25 22:00 02/05/25 22:00 20 UNITS Aspirin 81 mg DAILY PO 02/05/25 10:00 02/06/25 08:50 81 MG Atorvastatin Calcium 20 mg HS PO 02/04/25 22:00 02/05/25 21:50 20 MG Pantoprazole Sodium 40 mg DAILY@0600 PO 02/05/25 06:00 02/06/25 05:00 40 MG Ipratropium [place] 0.5 mg Q4HPRN PRN NEB 02/04/25 15:45 02/05/25 07:49 0.5 MG Ipratropium [place] 0.5 mg Q6HR NEB 02/04/25 18:00 02/06/25 11:33 0.5 MG Enoxaparin Sodium 30 mg DAILY SC 02/05/25 10:00 02/06/25 08:49 30 MG Ceftriaxone Sodium 50 ml @ 100 mls/hr DAILY@09 IV 02/05/25 09:00 02/06/25 08:44 100 MLS/HR Azithromycin 250 ml @ 125 mls/hr DAILY IV 02/05/25 10:00 02/06/25 10:12 125 MLS/HR Albuterol 2.5 mg Q4HPRN PRN NEB 02/04/25 15:45 02/05/25 07:49 2.5 MG Albuterol 2.5 mg Q6HR NEB 02/04/25 18:00 02/06/25 11:33 2.5 MG Amlodipine Besylate 10 mg DAILY PO 02/07/25 10:00 UNV Budesonide 0.5 mg BID NEB 02/06/25 22:00 UNV Methylprednisolone Sodium Succinate 40 mg DAILY IV 02/06/25 14:15 UNV Laboratory Results Laboratory Tests 02/06/25 05:30 Chemistry Test 02/06/25 05:30 Calcium Level 9.7 mg/dL (8.7-10.4) Microbiology Microbiology Date/Time Source Procedure Growth Status 02/04/25 15:51 Blood Blood Culture - Preliminary NO GROWTH AFTER 24 HOURS OF INCUBATION. Resulted Labs and/or images reviewed: Labs reviewed by me, Image(s) reviewed by me Assessment/Plan Assessment/Plan Impression: -acute hypoxic respiratory failure -community-acquired pneumonia, probable Gram-positive/Gram-negative etiology -CKD stage IIIA -obesity -diabetes mellitus -primary hypertension -depression -peripheral neuropathy -acute delirium,? Metabolic encephalopathy Plan: Events: ABG on BiPAP reviewed. Patient now on nasal cannula. Now with altered mental status. Medications reviewed. Noted audible wheezing from patient. -continue bronchodilators, add Pulmicort and Solu-Medrol -continue antibiotic therapy with Rocephin and azithromycin -regular insulin sliding scale -continue Prozac -continue gabapentin -repeat labs in a.m. Total time spent with patient discussing and formulating plan of care: 35 minutes. This medical document was created using an electronic medical record system with [employer] dictation system. Although this document has been carefully reviewed, there may still be some phonetic and typographical errors. These areas are purely typographical due to imperfections of the software programs, and do not reflect any compromise in the patient's medical care. Plan discussed with: Patient, Other (RN) My Orders Orders - SPENCER HAY [employer] Procedure Category Date Status Time Amlodipine Tablet PHA 02/07/25 Logged (Norvasc Tablet) 10:00 Basic Metabolic Panel LAB 02/07/25 Verified 04:00 Complete Blood Count LAB 02/07/25 Verified 04:00 Chest Portable XY 02/07/25 Logged 04:00 Budesonide PHA 02/06/25 Logged (Inhalation) 22:00 Methylprednisolone PHA 02/06/25 Transmitted Sod Succ (Solu Medrol 14:15 Consistent DIET 02/06/25 Verified Carb(Ccho)Diabetes Dinner Pt Request For Service PT 02/06/25 Verified 14:14 Date of Service: Feb 06, 2025 Billing Provider: SPENCER HAY NP Common Visit Codes: [id number] INP/OBS CARE(HIGH) SPENCER HAY NP Feb 06, 2025 14:18
[2025-02-06] MEDS: methylPREDNISolone SOD SUCC 40 MG/ML VL IV SCH (17:42)
[2025-02-06] MEDS: BUDESONIDE (INHALATION) 0.5 MG/2 ML NEB NEB SCH (20:29)
[2025-02-06 20:31] LABS: Base Excess 1.2 mmol/L (-2.0-3.0)
[2025-02-07] VITALS (21 sets, daily range): BP systolic 127–146; BP diastolic 49–72; PULSE 68–86; RESP 18–20; TEMP 97.9–99.6; O2SAT 95–100
--- NOTE | 2025-02-07 05:05 | DVH ---
CHEST RADIOGRAPH Indication: respiratory failure Technique: Single frontal view of the chest was obtained COMPARISON: XY CHEST PORTABLE on DOS: 02/06/25, XY CHEST XRAY 1 VIEW on DOS: 02/05/25, XY CHEST PORTABL E on DOS: 02/04/25, XY CHEST XRAY 1 VIEW on DOS: 01/03/24, XY CHEST PORTABLE on DOS: 05/26/23, XY CHEST PO RTABLE on DOS: 02/06/25 FINDINGS: Lines and Tubes: Left chest wall pacemaker Lungs: Left lower lobe airspace disease. Pleura: No effusion. No pneumothorax. Cardiomediastinal contours: Unremarkable Bones: Unremarkable IMPRESSION: Left lower lobe airspace disease, unchanged.
[2025-02-07 06:30] LABS: Base Excess 0.1 mmol/L (-2.0-3.0)
[2025-02-07 07:42] LABS: Anion Gap 9 (5-15); Carbon Dioxide 26 mmol/L (20-31); Chloride 99 mmol/L (98-107); Potassium 4.4 mmol/L (3.5-5.1)
[2025-02-07 07:43] LABS: Basophils # (auto) 0 10 ^3/uL (0-0.2); Basophils % (auto) 0.1 % (0.0-2.0); Eosinophils # (auto) 0 10 ^3/uL (0-0.8); Hematocrit 36.7 % (36.0-46.0); Lymphocytes # (auto) 1.4 10 ^3/uL (0.4-5.4); Lymphocytes % (auto) 10.1 % (10.0-50.0); Mean Corpuscular Hgb Conc. 32.8 g/dL (32.0-36.0); Mean Corpuscular Volume 85.3 fL (80.0-100.0); Monocytes % (auto) 7.5 % (0.0-12.0); Neutrophils # (auto) 11.3 10 ^3/uL (1.6-8.6); Neutrophils % (auto) 82.3 % (37.0-80.0); Nucleated Red Blood Cells % 0.1 %; Platelet Count (auto) 220 10^3/uL (140-450); Red Cell Distribution Width 13.2 % (11.8-14.3); White Blood Cell 13.7 10^3/uL (4.4-10.8)
[2025-02-07 07:44] LABS: Calcium 10.3 mg/dL (8.7-10.4); Sodium 134 mmol/L (136-145)
[2025-02-07 07:49] LABS: BUN/Creatinine Ratio 21.4 (10.0-20.0)
[2025-02-07 07:52] LABS: Blood Urea Nitrogen 31 mg/dL (9-23); Glucose 375 mg/dL (74-106)
[2025-02-07] MEDS: amLODIPine BESYLATE 5 MG TAB PO SCH (09:13)
[2025-02-07] MEDS: InsuLIN REG 1unit/0.01ml Soln (100units/ml) IV ONE (12:43)
--- NOTE | 2025-02-07 14:13 | DVHPN2 ---
Subjective Patient with altered mental status. Reviewed: Care Plan, H&P, Labs, Medications, Previous Orders Changes from previous H/P or p: No Changes General: Per HPI Eyes: No Pain, No Vision change, No Conjunctivae inflammation, No Eyelid inflammation, No Other, No Redness ENT: No Ear pain, No Ear discharge, No Nose pain, No Nose discharge, No Nose congestion, No Mouth pain, No Mouth swelling, No Throat pain, No Throat swelling, No Other Cardiovascular: No Chest Pain, No Palpitations, No Orthopnea, No Paroxysmal Noc. Dyspnea, No Edema, No Lt Headedness, No Other Respiratory: Cough; No Dry; Shortness of breath; No SOB with excertion, No Wheezing, No Hemoptysis, No Pleuritic Pain; Sputum; No Other Gastrointestinal: No Nausea, No Vomiting, No Abdominal Pain, No Diarrhea, No Constipation, No Melena, No Hematochezia, No Other Genitourinary: No Dysuria, No Frequency, No Incontinence, No Hematuria, No Retention, No Other Musculoskeletal: No other, No neck pain, No shoulder pain, No arm pain, No back pain, No hand pain, No leg pain, No foot pain Skin: No Rash, No Lesions, No Jaundice, No Bruising, No Other Objective Vitals Vital Signs Date Time Temp Pulse Resp B/P (MAP) Pulse Ox O2 Delivery O2 Flow Rate FiO2 02/07/25 12:26 98.9 86 20 130/72 (91) 97 98.9 02/07/25 09:18 Nasal Cannula* 3 32 Intake/Output Intake and Output 02/07/25 07:00 Intake Total 825 ml Balance 825 ml Intake Oral 525 ml IV Total 300 ml # Voids 7 General Appearance: Alert, Oriented X3, Cooperative, mild distress, Other (Obese) HEENT: Atraumatic, PERRLA Cardiovascular: Normal S1, Normal S2 Abdomen: Normal bowel sounds Genitourinary: No Apparent Abnormalities Musculoskeletal: Normal sensory function, Normal motor function Neuro: Normal gait, Normal speech Skin: Dry, Intact Psych/Mental Status: Mental status NL, Mood NL Medications Current Medications Medications Dose Ordered Sig/Amisha Route Start Time Stop Time Status Last Admin Dose Admin Diagnostic Test (Pha) 1 strip ACHS 02/04/25 17:00 02/07/25 11:50 1 STRIP Insulin Human Regular ACHS SC 02/04/25 17:00 02/07/25 11:30 10 UNITS Dextrose 50 ml UD PRN IV 02/04/25 15:45 Hydralazine HCl 10 mg Q6HP PRN IV 02/04/25 15:45 02/05/25 04:48 10 MG Gabapentin 300 mg TID PO 02/04/25 22:00 02/06/25 14:38 300 MG Fluoxetine HCl 20 mg DAILY PO 02/05/25 10:00 02/07/25 09:13 20 MG Levothyroxine Sodium 125 mcg QAM@0600 PO 02/05/25 06:00 02/06/25 05:00 125 MCG Insulin Glargine 20 units HS SC 02/04/25 22:00 02/05/25 22:00 20 UNITS Aspirin 81 mg DAILY PO 02/05/25 10:00 02/07/25 09:13 81 MG Atorvastatin Calcium 20 mg HS PO 02/04/25 22:00 02/05/25 21:50 20 MG Pantoprazole Sodium 40 mg DAILY@0600 PO 02/05/25 06:00 02/06/25 05:00 40 MG Ipratropium [place] 0.5 mg Q4HPRN PRN NEB 02/04/25 15:45 02/05/25 07:49 0.5 MG Ipratropium [place] 0.5 mg Q6HR NEB 02/04/25 18:00 02/07/25 09:18 0.5 MG Enoxaparin Sodium 30 mg DAILY SC 02/05/25 10:00 02/07/25 09:13 30 MG Ceftriaxone Sodium 50 ml @ 100 mls/hr DAILY@09 IV 02/05/25 09:00 02/07/25 09:12 100 MLS/HR Azithromycin 250 ml @ 125 mls/hr DAILY IV 02/05/25 10:00 02/07/25 10:15 125 MLS/HR Albuterol 2.5 mg Q4HPRN PRN NEB 02/04/25 15:45 02/05/25 07:49 2.5 MG Albuterol 2.5 mg Q6HR NEB 02/04/25 18:00 02/07/25 09:18 2.5 MG Amlodipine Besylate 10 mg DAILY PO 02/07/25 10:00 02/07/25 09:13 10 MG Budesonide 0.5 mg BID NEB 02/06/25 22:00 02/07/25 05:58 0.5 MG Methylprednisolone Sodium Succinate 40 mg DAILY IV 02/06/25 14:15 02/07/25 09:12 40 MG Laboratory Results Laboratory Tests 02/07/25 07:16 Chemistry Test 02/07/25 07:16 Calcium Level 10.3 mg/dL (8.7-10.4) Blood Gas Results Test 02/06/25 20:22 02/07/25 06:25 Arterial Blood pH 7.398 (7.350-7.450) 7.367 (7.350-7.450) FiO2 % 40.0 40.0 Microbiology Microbiology Date/Time Source Procedure Growth Status 02/04/25 15:51 Blood Blood Culture - Preliminary NO GROWTH AFTER 48 HOURS OF INCUBATION. Resulted Labs and/or images reviewed: Labs reviewed by me, Image(s) reviewed by me Assessment/Plan Assessment/Plan Impression: -acute hypoxic respiratory failure -community-acquired pneumonia, probable Gram-positive/Gram-negative etiology -CKD stage IIIA -obesity -diabetes mellitus -primary hypertension -depression -peripheral neuropathy -acute delirium,? Metabolic encephalopathy Plan: Events: Patient placed on BiPAP overnight. ABG on 40% reviewed. Patient now on nasal cannula at 3 liters/minute. Ambulated minimally with physical therapy. Chest x-ray and labs reviewed. -IV diuresis -continue bronchodilators, continue Pulmicort and Solu-Medrol -BiPAP p.r.n. -continue antibiotic therapy with Rocephin and azithromycin -regular insulin sliding scale -continue Prozac -continue gabapentin -repeat labs in a.m. Total time spent with patient discussing and formulating plan of care: 35 minutes. This medical document was created using an electronic medical record system with [employer] dictation system. Although this document has been carefully reviewed, there may still be some phonetic and typographical errors. These areas are purely typographical due to imperfections of the software programs, and do not reflect any compromise in the patient's medical care. Plan discussed with: Patient, Other (RN) My Orders Orders - SPENCER HAY [employer] Procedure Category Date Status Time Chest Portable XY 02/07/25 Resulted 04:00 Budesonide PHA 02/06/25 In Process (Inhalation) 22:00 Methylprednisolone PHA 02/06/25 In Process Sod Succ (Solu Medrol 14:15 Consistent DIET 02/06/25 Transmitted Carb(Ccho)Diabetes Dinner Pt Request For Service PT 02/06/25 Logged 14:14 Abg W/ Co-Ox RT 02/07/25 Logged 05:59 Date of Service: Feb 07, 2025 Billing Provider: SPENCER HAY NP Common Visit Codes: [id number] INP/OBS CARE(HIGH) SPENCER HAY NP Feb 07, 2025 14:12
[2025-02-07] MEDS: FUROSEMIDE 20 MG/2 ML VIAL IV ONE (15:24)
[2025-02-08] VITALS (15 sets, daily range): BP systolic 117–144; BP diastolic 41–66; PULSE 71–88; RESP 17–20; TEMP 97.5–98.1; O2SAT 93–100
[2025-02-08 08:34] LABS: Anion Gap 10 (5-15); Carbon Dioxide 25 mmol/L (20-31); Chloride 102 mmol/L (98-107); Sodium 137 mmol/L (136-145)
[2025-02-08 08:40] LABS: BUN/Creatinine Ratio 26.2 (10.0-20.0)
[2025-02-08 08:43] LABS: Blood Urea Nitrogen 32 mg/dL (9-23); Calcium 10.5 mg/dL (8.7-10.4); Glucose 275 mg/dL (74-106)
[2025-02-08] MEDS: ENOXAPARIN SOD 30 MG/0.3 ML SYRINGE SC SCH (09:03)
[2025-02-08 09:46] LABS: Basophils # (auto) 0.1 10 ^3/uL (0-0.2); Basophils % (auto) 0.5 % (0.0-2.0); Eosinophils # (auto) 0 10 ^3/uL (0-0.8); Hematocrit 37.5 % (36.0-46.0); Lymphocytes % (auto) 13.7 % (10.0-50.0); Mean Corpuscular Hemoglobin 27.2 pg (28.0-32.0); Mean Corpuscular Hgb Conc. 31.9 g/dL (32.0-36.0); Mean Corpuscular Volume 85.4 fL (80.0-100.0); Monocytes # (auto) 1.3 10 ^3/uL (0-1.3); Monocytes % (auto) 8.8 % (0.0-12.0); Platelet Count (auto) 267 10^3/uL (140-450); Red Cell Distribution Width 12.9 % (11.8-14.3); White Blood Cell 14.3 10^3/uL (4.4-10.8)
--- NOTE | 2025-02-08 14:49 | DVHPN2 ---
Subjective Patient with altered mental status. Reviewed: Care Plan, H&P, Labs, Medications, Previous Orders Changes from previous H/P or p: No Changes General: Per HPI Eyes: No Pain, No Vision change, No Conjunctivae inflammation, No Eyelid inflammation, No Other, No Redness ENT: No Ear pain, No Ear discharge, No Nose pain, No Nose discharge, No Nose congestion, No Mouth pain, No Mouth swelling, No Throat pain, No Throat swelling, No Other Cardiovascular: No Chest Pain, No Palpitations, No Orthopnea, No Paroxysmal Noc. Dyspnea, No Edema, No Lt Headedness, No Other Respiratory: Cough; No Dry; Shortness of breath; No SOB with excertion, No Wheezing, No Hemoptysis, No Pleuritic Pain; Sputum; No Other Gastrointestinal: No Nausea, No Vomiting, No Abdominal Pain, No Diarrhea, No Constipation, No Melena, No Hematochezia, No Other Genitourinary: No Dysuria, No Frequency, No Incontinence, No Hematuria, No Retention, No Other Musculoskeletal: No other, No neck pain, No shoulder pain, No arm pain, No back pain, No hand pain, No leg pain, No foot pain Skin: No Rash, No Lesions, No Jaundice, No Bruising, No Other Objective Vitals Vital Signs Date Time Temp Pulse Resp B/P (MAP) Pulse Ox O2 Delivery O2 Flow Rate FiO2 02/08/25 11:49 81 20 02/08/25 11:44 97 02/08/25 09:01 141/61 02/08/25 09:00 97.6 97.6 02/08/25 08:10 Nasal Cannula* 3 32 Intake/Output Intake and Output 02/08/25 07:00 Intake Total 970 ml Balance 970 ml Intake Oral 670 ml IV Total 300 ml # Voids 4 General Appearance: Alert, Oriented X3, Cooperative, mild distress, Other (Obese) HEENT: Atraumatic, PERRLA Cardiovascular: Normal S1, Normal S2 Abdomen: Normal bowel sounds Genitourinary: No Apparent Abnormalities Musculoskeletal: Normal sensory function, Normal motor function Neuro: Normal gait, Normal speech Skin: Dry, Intact Psych/Mental Status: Mental status NL, Mood NL Medications Current Medications Medications Dose Ordered Sig/Amisha Route Start Time Stop Time Status Last Admin Dose Admin Diagnostic Test (Pha) 1 strip ACHS 02/04/25 17:00 02/08/25 11:14 1 STRIP Insulin Human Regular ACHS SC 02/04/25 17:00 02/08/25 11:14 6 UNITS Dextrose 50 ml UD PRN IV 02/04/25 15:45 Hydralazine HCl 10 mg Q6HP PRN IV 02/04/25 15:45 02/05/25 04:48 10 MG Gabapentin 300 mg TID PO 02/04/25 22:00 02/08/25 06:15 300 MG Fluoxetine HCl 20 mg DAILY PO 02/05/25 10:00 02/08/25 09:00 20 MG Levothyroxine Sodium 125 mcg QAM@0600 PO 02/05/25 06:00 02/08/25 06:28 125 MCG Insulin Glargine 20 units HS SC 02/04/25 22:00 02/07/25 22:12 20 UNITS Aspirin 81 mg DAILY PO 02/05/25 10:00 02/08/25 09:02 81 MG Atorvastatin Calcium 20 mg HS PO 02/04/25 22:00 02/07/25 21:57 20 MG Pantoprazole Sodium 40 mg DAILY@0600 PO 02/05/25 06:00 02/08/25 06:28 40 MG Ipratropium [place] 0.5 mg Q4HPRN PRN NEB 02/04/25 15:45 02/05/25 07:49 0.5 MG Ipratropium [place] 0.5 mg Q6HR NEB 02/04/25 18:00 02/08/25 11:44 0.5 MG Ceftriaxone Sodium 50 ml @ 100 mls/hr DAILY@09 IV 02/05/25 09:00 02/08/25 08:48 100 MLS/HR Azithromycin 250 ml @ 125 mls/hr DAILY IV 02/05/25 10:00 02/08/25 09:03 125 MLS/HR Albuterol 2.5 mg Q4HPRN PRN NEB 02/04/25 15:45 02/05/25 07:49 2.5 MG Albuterol 2.5 mg Q6HR NEB 02/04/25 18:00 02/08/25 11:44 2.5 MG Amlodipine Besylate 10 mg DAILY PO 02/07/25 10:00 02/08/25 09:01 10 MG Budesonide 0.5 mg BID NEB 02/06/25 22:00 02/08/25 07:28 0.5 MG Methylprednisolone Sodium Succinate 40 mg DAILY IV 02/06/25 14:15 02/08/25 10:23 40 MG Enoxaparin Sodium 40 mg DAILY SC 02/08/25 10:00 02/08/25 09:03 40 MG Laboratory Results Laboratory Tests 02/08/25 07:22 02/08/25 09:04 Chemistry Test 02/08/25 07:22 Calcium Level 10.5 mg/dL (8.7-10.4) H Microbiology Microbiology Date/Time Source Procedure Growth Status 02/04/25 15:51 Blood Blood Culture - Preliminary NO GROWTH AFTER 72 HOURS OF INCUBATION. Resulted Labs and/or images reviewed: Labs reviewed by me, Image(s) reviewed by me Assessment/Plan Assessment/Plan Impression: -acute hypoxic respiratory failure -community-acquired pneumonia, probable Gram-positive/Gram-negative etiology -CKD stage IIIA -obesity -diabetes mellitus -primary hypertension -depression -peripheral neuropathy -acute delirium,? Metabolic encephalopathy Plan: Events: Events overnight. Long discussion made with the patient's grandson, Osvaldo, who states that he seen his grandmother this morning and she was of normal mental status. Patient was weaned down to 1 L of oxygen. Patient only able to stand bedside, not able to ambulate. According to the grandson, the patient was able to ambulate with a walker at home. -IV diuresis -continue bronchodilators, continue Pulmicort and Solu-Medrol -BiPAP p.r.n. -continue antibiotic therapy with Rocephin and azithromycin -regular insulin sliding scale -continue Prozac -continue gabapentin -repeat labs in a.m. -social service consultation for DC planning with physical therapy Total time spent with patient discussing and formulating plan of care: 35 minutes. Total time spent with patient and family regarding advance care plannin minutes. This medical document was created using an electronic medical record system with [employer] system. Although this document has been carefully reviewed, there may still be some phonetic and typographical errors. These areas are purely typographical due to imperfections of the software programs, and do not reflect any compromise in the patient's medical care. Plan discussed with: Patient, Other (RN) My Orders Orders - SPENCER HAY NP Procedure Category Date Status Time Methylprednisolone PHA 02/09/25 Verified Sod Succ (Solu Medrol 10:00 Date of Service: Feb 08, 2025 Billing Provider: SPENCER HAY NP Common Visit Codes: [id number] INP/OBS CARE(HIGH) Secondary Visit Codes: [id number] CARE PLAN 30 MINUTES SPENCER HAY NP Feb 08, 2025 14:49
[2025-02-09] VITALS (19 sets, daily range): BP systolic 89–163; BP diastolic 46–69; PULSE 60–90; RESP 14–20; TEMP 97.3–98.2; O2SAT 91–100
[2025-02-09] MEDS: methylPREDNISolone SOD SUCC 125 MG/2 ML VL IV SCH (10:00)
--- NOTE | 2025-02-09 15:19 | DVHPN2 ---
Subjective Denies any symptoms Reviewed: Care Plan, H&P, Labs, Medications, Previous Orders Changes from previous H/P or p: No Changes General: Per HPI Eyes: No Pain, No Vision change, No Conjunctivae inflammation, No Eyelid inflammation, No Other, No Redness ENT: No Ear pain, No Ear discharge, No Nose pain, No Nose discharge, No Nose congestion, No Mouth pain, No Mouth swelling, No Throat pain, No Throat swelling, No Other Cardiovascular: No Chest Pain, No Palpitations, No Orthopnea, No Paroxysmal Noc. Dyspnea, No Edema, No Lt Headedness, No Other Respiratory: Cough; No Dry; Shortness of breath; No SOB with excertion, No Wheezing, No Hemoptysis, No Pleuritic Pain; Sputum; No Other Gastrointestinal: No Nausea, No Vomiting, No Abdominal Pain, No Diarrhea, No Constipation, No Melena, No Hematochezia, No Other Genitourinary: No Dysuria, No Frequency, No Incontinence, No Hematuria, No Retention, No Other Musculoskeletal: No other, No neck pain, No shoulder pain, No arm pain, No back pain, No hand pain, No leg pain, No foot pain Skin: No Rash, No Lesions, No Jaundice, No Bruising, No Other Objective Vitals Vital Signs Date Time Temp Pulse Resp B/P (MAP) Pulse Ox O2 Delivery O2 Flow Rate FiO2 02/09/25 13:37 77 16 157/54 98 1.0 24 02/09/25 11:51 Nasal Cannula* 02/09/25 09:00 97.3 97.3 Intake/Output Intake and Output 02/09/25 07:00 Intake Total 1425 ml Balance 1425 ml Intake Oral 1125 ml IV Total 300 ml # Voids 7 General Appearance: Alert, Oriented X3, Cooperative, mild distress, Other (Obese) HEENT: Atraumatic, PERRLA Cardiovascular: Normal S1, Normal S2 Abdomen: Normal bowel sounds Genitourinary: No Apparent Abnormalities Musculoskeletal: Normal sensory function, Normal motor function Neuro: Normal gait, Normal speech Skin: Dry, Intact Psych/Mental Status: Mental status NL, Mood NL Medications Current Medications Medications Dose Ordered Sig/Amisha Route Start Time Stop Time Status Last Admin Dose Admin Diagnostic Test (Pha) 1 strip ACHS 02/04/25 17:00 02/09/25 11:49 1 STRIP Insulin Human Regular ACHS SC 02/04/25 17:00 02/09/25 12:02 6 UNITS Dextrose 50 ml UD PRN IV 02/04/25 15:45 Hydralazine HCl 10 mg Q6HP PRN IV 02/04/25 15:45 02/09/25 07:53 10 MG Gabapentin 300 mg TID PO 02/04/25 22:00 02/09/25 12:28 300 MG Fluoxetine HCl 20 mg DAILY PO 02/05/25 10:00 02/09/25 12:03 20 MG Levothyroxine Sodium 125 mcg QAM@0600 PO 02/05/25 06:00 02/09/25 06:34 125 MCG Insulin Glargine 20 units HS SC 02/04/25 22:00 02/08/25 21:56 20 UNITS Aspirin 81 mg DAILY PO 02/05/25 10:00 02/09/25 10:00 81 MG Atorvastatin Calcium 20 mg HS PO 02/04/25 22:00 02/08/25 21:36 20 MG Pantoprazole Sodium 40 mg DAILY@0600 PO 02/05/25 06:00 02/09/25 06:34 40 MG Ipratropium [place] 0.5 mg Q4HPRN PRN NEB 02/04/25 15:45 02/05/25 07:49 0.5 MG Ipratropium [place] 0.5 mg Q6HR NEB 02/04/25 18:00 02/09/25 11:51 0.5 MG Ceftriaxone Sodium 50 ml @ 100 mls/hr DAILY@09 IV 02/05/25 09:00 02/09/25 09:54 100 MLS/HR Azithromycin 250 ml @ 125 mls/hr DAILY IV 02/05/25 10:00 02/09/25 12:05 125 MLS/HR Albuterol 2.5 mg Q4HPRN PRN NEB 02/04/25 15:45 02/05/25 07:49 2.5 MG Albuterol 2.5 mg Q6HR NEB 02/04/25 18:00 02/09/25 11:51 2.5 MG Amlodipine Besylate 10 mg DAILY PO 02/07/25 10:00 02/09/25 10:00 10 MG Budesonide 0.5 mg BID NEB 02/06/25 22:00 02/09/25 07:06 0.5 MG Enoxaparin Sodium 40 mg DAILY SC 02/08/25 10:00 02/09/25 09:59 40 MG Methylprednisolone Sodium Succinate 20 mg DAILY IV 02/09/25 10:00 02/09/25 10:00 20 MG Laboratory Results Laboratory Tests 02/08/25 07:22 02/08/25 09:04 Microbiology Microbiology Date/Time Source Procedure Growth Status 02/09/25 02:35 Nose MRSA Screen - Final Complete 02/04/25 15:51 Blood Blood Culture - Preliminary NO GROWTH AFTER 72 HOURS OF INCUBATION. Resulted Labs and/or images reviewed: Labs reviewed by me, Image(s) reviewed by me Assessment/Plan Assessment/Plan Impression: -acute hypoxic respiratory failure -community-acquired pneumonia, probable Gram-positive/Gram-negative etiology -CKD stage IIIA -obesity -diabetes mellitus -primary hypertension -depression -peripheral neuropathy -acute delirium,? Metabolic encephalopathy Plan: Pt still not ambulating. Respiratory status improved. Blood sugars elevated secondary to steroids -IV diuresis -continue bronchodilators, continue Pulmicort. Wean off solumedrol -BiPAP p.r.n. -continue antibiotic therapy with Rocephin and azithromycin -regular insulin sliding scale -continue Prozac -continue gabapentin -repeat labs in a.m. -social service consultation for DC planning with physical therapy Total time spent with patient discussing and formulating plan of care: 35 minutes. This medical document was created using an electronic medical record system with [email or web address] dictation system. Although this document has been carefully reviewed, there may still be some phonetic and typographical errors. These areas are purely typographical due to imperfections of the software programs, and do not reflect any compromise in the patient's medical care. Plan discussed with: Patient, Other (RN) My Orders Orders - SPENCER HYA NP Procedure Category Date Status Time Basic Metabolic Panel LAB 02/10/25 Verified 04:00 Complete Blood Count LAB 02/10/25 Verified 04:00 Date of Service: Feb 09, 2025 Billing Provider: SPENCER HAY NP Common Visit Codes: [id number] INP/OBS CARE(HIGH) SPENCER HAY NP Feb 09, 2025 15:19
[2025-02-10] VITALS (18 sets, daily range): BP systolic 130–174; BP diastolic 43–76; PULSE 58–77; RESP 16–20; TEMP 97.2–98.1; O2SAT 94–100
[2025-02-10] MEDS ORDERED: AZITHROMYCIN 500MG 500 MG in SODIUM CHL 0.9% 250 ML IV SCH (11:00)
[2025-02-10] MEDS: ENOXAPARIN SOD 40 MG/0.4 ML SYRINGE SC SCH (11:28)
[2025-02-10 12:20] LABS: Basophils # (auto) 0.1 10 ^3/uL (0-0.2); Basophils % (auto) 0.4 % (0.0-2.0); Eosinophils # (auto) 0.2 10 ^3/uL (0-0.8); Eosinophils % (auto) 1.2 % (0.0-7.0); Hematocrit 38.6 % (36.0-46.0); Hemoglobin 12.4 g/dL (12.2-16.2); Lymphocytes # (auto) 1.9 10 ^3/uL (0.4-5.4); Mean Corpuscular Hemoglobin 27.3 pg (28.0-32.0); Mean Corpuscular Hgb Conc. 32.1 g/dL (32.0-36.0); Mean Corpuscular Volume 84.8 fL (80.0-100.0); Monocytes # (auto) 1.5 10 ^3/uL (0-1.3); Monocytes % (auto) 8.5 % (0.0-12.0); Neutrophils # (auto) 13.5 10 ^3/uL (1.6-8.6); Neutrophils % (auto) 78.9 % (37.0-80.0); Nucleated Red Blood Cells % 0.6 %; Platelet Count (auto) 319 10^3/uL (140-450); Red Blood Cells 4.55 10^6/uL (4.0-5.20); Red Cell Distribution Width 13.1 % (11.8-14.3); White Blood Cell 17.1 10^3/uL (4.4-10.8)
[2025-02-10 12:25] LABS: Chloride 100 mmol/L (98-107); Potassium 4.2 mmol/L (3.5-5.1); Sodium 138 mmol/L (136-145)
[2025-02-10 12:26] LABS: Anion Gap 9 (5-15); Calcium 10.3 mg/dL (8.7-10.4); Carbon Dioxide 29 mmol/L (20-31)
[2025-02-10 12:31] LABS: BUN/Creatinine Ratio 29.1 (10.0-20.0)
[2025-02-10 12:37] LABS: Blood Urea Nitrogen 32 mg/dL (9-23); Glucose 247 mg/dL (74-106)
--- NOTE | 2025-02-10 16:30 | DVHPN2 ---
Subjective Denies any symptoms Reviewed: Care Plan, H&P, Labs, Medications, Previous Orders Changes from previous H/P or p: No Changes General: Per HPI Eyes: No Pain, No Vision change, No Conjunctivae inflammation, No Eyelid inflammation, No Other, No Redness ENT: No Ear pain, No Ear discharge, No Nose pain, No Nose discharge, No Nose congestion, No Mouth pain, No Mouth swelling, No Throat pain, No Throat swelling, No Other Cardiovascular: No Chest Pain, No Palpitations, No Orthopnea, No Paroxysmal Noc. Dyspnea, No Edema, No Lt Headedness, No Other Respiratory: Cough; No Dry; Shortness of breath; No SOB with excertion, No Wheezing, No Hemoptysis, No Pleuritic Pain; Sputum; No Other Gastrointestinal: No Nausea, No Vomiting, No Abdominal Pain, No Diarrhea, No Constipation, No Melena, No Hematochezia, No Other Genitourinary: No Dysuria, No Frequency, No Incontinence, No Hematuria, No Retention, No Other Musculoskeletal: No other, No neck pain, No shoulder pain, No arm pain, No back pain, No hand pain, No leg pain, No foot pain Skin: No Rash, No Lesions, No Jaundice, No Bruising, No Other Objective Vitals Vital Signs Date Time Temp Pulse Resp B/P (MAP) Pulse Ox O2 Delivery O2 Flow Rate FiO2 02/10/25 13:00 97.5 61 16 130/43 (72) 97 97.5 02/10/25 11:38 Nasal Cannula 1.0 02/10/25 11:38 24 Intake/Output Intake and Output 02/10/25 07:00 Intake Total 950 ml Balance 950 ml Intake Oral 650 ml IV Total 300 ml # Voids 4 General Appearance: Alert, Oriented X3, Cooperative, mild distress, Other (Obese) HEENT: Atraumatic, PERRLA Cardiovascular: Normal S1, Normal S2 Abdomen: Normal bowel sounds Genitourinary: No Apparent Abnormalities Musculoskeletal: Normal sensory function, Normal motor function Neuro: Normal gait, Normal speech Skin: Dry, Intact Psych/Mental Status: Mental status NL, Mood NL Medications Current Medications Medications Dose Ordered Sig/Amisha Route Start Time Stop Time Status Last Admin Dose Admin Diagnostic Test (Pha) 1 strip ACHS 02/04/25 17:00 02/10/25 11:30 1 STRIP Insulin Human Regular ACHS SC 02/04/25 17:00 02/10/25 12:10 4 UNITS Dextrose 50 ml UD PRN IV 02/04/25 15:45 Hydralazine HCl 10 mg Q6HP PRN IV 02/04/25 15:45 02/09/25 07:53 10 MG Gabapentin 300 mg TID PO 02/04/25 22:00 02/10/25 14:09 300 MG Fluoxetine HCl 20 mg DAILY PO 02/05/25 10:00 02/10/25 09:54 20 MG Levothyroxine Sodium 125 mcg QAM@0600 PO 02/05/25 06:00 02/09/25 06:34 125 MCG Insulin Glargine 20 units HS SC 02/04/25 22:00 02/09/25 22:00 20 UNITS Aspirin 81 mg DAILY PO 02/05/25 10:00 02/10/25 09:54 81 MG Atorvastatin Calcium 20 mg HS PO 02/04/25 22:00 02/09/25 21:38 20 MG Pantoprazole Sodium 40 mg DAILY@0600 PO 02/05/25 06:00 02/09/25 06:34 40 MG Ipratropium [place] 0.5 mg Q4HPRN PRN NEB 02/04/25 15:45 02/05/25 07:49 0.5 MG Ipratropium [place] 0.5 mg Q6HR NEB 02/04/25 18:00 02/10/25 11:38 0.5 MG Ceftriaxone Sodium 50 ml @ 100 mls/hr DAILY@09 IV 02/05/25 09:00 02/10/25 09:45 100 MLS/HR Azithromycin 250 ml @ 125 mls/hr DAILY IV 02/05/25 10:00 02/10/25 11:29 125 MLS/HR Albuterol 2.5 mg Q4HPRN PRN NEB 02/04/25 15:45 02/05/25 07:49 2.5 MG Albuterol 2.5 mg Q6HR NEB 02/04/25 18:00 02/10/25 11:38 2.5 MG Amlodipine Besylate 10 mg DAILY PO 02/07/25 10:00 02/10/25 09:53 10 MG Budesonide 0.5 mg BID NEB 02/06/25 22:00 02/09/25 22:39 0.5 MG Enoxaparin Sodium 40 mg DAILY SC 02/10/25 10:07 02/10/25 11:28 40 MG Laboratory Results Laboratory Tests 02/10/25 11:24 Chemistry Test 02/10/25 11:24 Calcium Level 10.3 mg/dL (8.7-10.4) Microbiology Microbiology Date/Time Source Procedure Growth Status 02/09/25 02:35 Nose MRSA Screen - Final Complete 02/04/25 15:51 Blood Blood Culture - Final NO GROWTH AFTER 5 DAYS OF INCUBATION. Complete Labs and/or images reviewed: Labs reviewed by me, Image(s) reviewed by me Assessment/Plan Assessment/Plan Impression: -acute hypoxic respiratory failure -community-acquired pneumonia, probable Gram-positive/Gram-negative etiology -CKD stage IIIA -obesity -diabetes mellitus -primary hypertension -depression -peripheral neuropathy -acute delirium,? Metabolic encephalopathy Plan: Patient was done on ambulating. Constipation x1 week. -start bowel regimen -continue bronchodilators, continue Pulmicort. Wean off solumedrol -BiPAP p.r.n. -continue antibiotic therapy with Rocephin and azithromycin -regular insulin sliding scale -continue Prozac -continue gabapentin -repeat labs in a.m. -social service consultation for DC planning with physical therapy Total time spent with patient discussing and formulating plan of care: 35 minutes. This medical document was created using an electronic medical record system with [employer] dictation system. Although this document has been carefully reviewed, there may still be some phonetic and typographical errors. These areas are purely typographical due to imperfections of the software programs, and do not reflect any compromise in the patient's medical care. Plan discussed with: Patient My Orders Orders - SPENCER HAY NP Procedure Category Date Status Time Enoxaparin Sodium PHA 02/10/25 In Process (Lovenox) 10:07 Date of Service: Feb 10, 2025 Billing Provider: SPENCER HAY NP Common Visit Codes: [id number] INP/OBS CARE(HIGH) SPENCER HAY NP Feb 10, 2025 16:30
[2025-02-10] MEDS: LACTULOSE 20Gm/30ML SOLN PO ONE (16:48)
[2025-02-11] VITALS (13 sets, daily range): BP systolic 132–148; BP diastolic 47–59; PULSE 60–71; RESP 16–19; TEMP 97.6–98.9; O2SAT 93–100
[2025-02-11] MEDS: LACTULOSE 20Gm/30ML SOLN PO SCH (10:32)
--- NOTE | 2025-02-11 13:11 | DVHPN2 ---
Subjective Denies any symptoms Reviewed: Care Plan, H&P, Labs, Medications, Previous Orders Changes from previous H/P or p: No Changes General: Per HPI Eyes: No Pain, No Vision change, No Conjunctivae inflammation, No Eyelid inflammation, No Other, No Redness ENT: No Ear pain, No Ear discharge, No Nose pain, No Nose discharge, No Nose congestion, No Mouth pain, No Mouth swelling, No Throat pain, No Throat swelling, No Other Cardiovascular: No Chest Pain, No Palpitations, No Orthopnea, No Paroxysmal Noc. Dyspnea, No Edema, No Lt Headedness, No Other Respiratory: Cough; No Dry; Shortness of breath; No SOB with excertion, No Wheezing, No Hemoptysis, No Pleuritic Pain; Sputum; No Other Gastrointestinal: No Nausea, No Vomiting, No Abdominal Pain, No Diarrhea, No Constipation, No Melena, No Hematochezia, No Other Genitourinary: No Dysuria, No Frequency, No Incontinence, No Hematuria, No Retention, No Other Musculoskeletal: No other, No neck pain, No shoulder pain, No arm pain, No back pain, No hand pain, No leg pain, No foot pain Skin: No Rash, No Lesions, No Jaundice, No Bruising, No Other Objective Vitals Vital Signs Date Time Temp Pulse Resp B/P (MAP) Pulse Ox O2 Delivery O2 Flow Rate FiO2 02/11/25 12:39 60 18 100 02/11/25 12:33 Nasal Cannula 2.0 02/11/25 12:33 28 02/11/25 10:34 148/97 02/11/25 08:35 98.9 98.9 Intake/Output Intake and Output 02/11/25 07:00 Intake Total 1105 ml Output Total 600 ml Balance 505 ml Intake Oral 805 ml IV Total 300 ml Output Urine Total 600 ml # Voids 6 # Bowel Movements 1 General Appearance: Alert, Oriented X3, Cooperative, mild distress, Other (Obese) HEENT: Atraumatic, PERRLA Cardiovascular: Normal S1, Normal S2 Abdomen: Normal bowel sounds Genitourinary: No Apparent Abnormalities Musculoskeletal: Normal sensory function, Normal motor function Neuro: Normal gait, Normal speech Skin: Dry, Intact Psych/Mental Status: Mental status NL, Mood NL Medications Current Medications Medications Dose Ordered Sig/Amisha Route Start Time Stop Time Status Last Admin Dose Admin Diagnostic Test (Pha) 1 strip ACHS 3/9/25 17:00 02/11/25 11:30 1 STRIP Insulin Human Regular ACHS SC 02/04/25 17:00 02/11/25 12:19 4 UNITS Dextrose 50 ml UD PRN IV 02/04/25 15:45 Hydralazine HCl 10 mg Q6HP PRN IV 02/04/25 15:45 02/09/25 07:53 10 MG Gabapentin 300 mg TID PO 02/04/25 22:00 02/11/25 06:20 300 MG Fluoxetine HCl 20 mg DAILY PO 02/05/25 10:00 02/11/25 10:33 20 MG Levothyroxine Sodium 125 mcg QAM@0600 PO 02/05/25 06:00 02/11/25 06:20 125 MCG Insulin Glargine 20 units HS SC 02/04/25 22:00 02/10/25 22:00 20 UNITS Aspirin 81 mg DAILY PO 02/05/25 10:00 02/11/25 10:33 81 MG Atorvastatin Calcium 20 mg HS PO 02/04/25 22:00 02/10/25 22:51 20 MG Pantoprazole Sodium 40 mg DAILY@0600 PO 02/05/25 06:00 02/11/25 06:20 40 MG Ipratropium [place] 0.5 mg Q4HPRN PRN NEB 02/04/25 15:45 02/05/25 07:49 0.5 MG Ipratropium [place] 0.5 mg Q6HR NEB 02/04/25 18:00 02/11/25 12:33 0.5 MG Ceftriaxone Sodium 50 ml @ 100 mls/hr DAILY@09 IV 02/05/25 09:00 02/11/25 08:49 100 MLS/HR Azithromycin 250 ml @ 125 mls/hr DAILY IV 02/05/25 10:00 02/11/25 10:35 125 MLS/HR Albuterol 2.5 mg Q4HPRN PRN NEB 02/04/25 15:45 02/05/25 07:49 2.5 MG Albuterol 2.5 mg Q6HR NEB 02/04/25 18:00 02/11/25 12:33 2.5 MG Amlodipine Besylate 10 mg DAILY PO 02/07/25 10:00 02/11/25 10:34 10 MG Budesonide 0.5 mg BID NEB 02/06/25 22:00 02/11/25 08:11 0.5 MG Enoxaparin Sodium 40 mg DAILY SC 02/10/25 10:07 02/11/25 10:33 40 MG Lactulose 30 ml BID PO 02/11/25 10:00 02/11/25 10:32 30 ML Laboratory Results Laboratory Tests 02/10/25 11:24 Microbiology Microbiology Date/Time Source Procedure Growth Status 02/09/25 02:35 Nose MRSA Screen - Final Complete 02/04/25 15:51 Blood Blood Culture - Final NO GROWTH AFTER 5 DAYS OF INCUBATION. Complete Labs and/or images reviewed: Labs reviewed by me, Image(s) reviewed by me Assessment/Plan Assessment/Plan Impression: -acute hypoxic respiratory failure -community-acquired pneumonia, probable Gram-positive/Gram-negative etiology -CKD stage IIIA -obesity -diabetes mellitus -primary hypertension -depression -peripheral neuropathy -acute delirium,? Metabolic encephalopathy Plan: Events: Patient had bowel movement. Still has not ambulated. Assessed in a chair. -start bowel regimen -bronchodilators, Pulmicort. Solu-Medrol weaned off. -BiPAP p.r.n. -continue antibiotic therapy with Rocephin and azithromycin -regular insulin sliding scale -continue Prozac -continue gabapentin -repeat labs in a.m. -social service consultation for DC planning with physical therapy. We will discharge patient once patient was able to ambulate. Total time spent with patient discussing and formulating plan of care: 35 minutes. This medical document was created using an electronic medical record system with [employer] dictation system. Although this document has been carefully reviewed, there may still be some phonetic and typographical errors. These areas are purely typographical due to imperfections of the software programs, and do not reflect any compromise in the patient's medical care. Plan discussed with: Patient, Other (RN) My Orders Orders - SPENCER HAY NP Procedure Category Date Status Time Oob To Chair CA 02/10/25 In Process 16:29 Urinalysis LAB 02/10/25 Logged 16:30 Lactulose Oral PHA 02/11/25 In Process 10:00 Insulin Lantus PHA 02/11/25 Transmitted (Glargine) (Lantus) 22:00 Date of Service: Feb 11, 2025 Billing Provider: SPENCER HAY NP Common Visit Codes: [id number] INP/OBS CARE(HIGH) SPENCER HAY NP Feb 11, 2025 13:11
[2025-02-11] MEDS: INSULIN LANTUS (GLARGINE) 1 /0.01ml (100units/ml) SC SCH (22:05)
[2025-02-12] VITALS (15 sets, daily range): BP systolic 117–149; BP diastolic 51–57; PULSE 60–73; RESP 16–18; TEMP 97.3–98.2; O2SAT 96–100
--- NOTE | 2025-02-12 15:30 | DVHPN2 ---
Subjective Denies any symptoms Reviewed: Care Plan, H&P, Labs, Medications, Previous Orders Changes from previous H/P or p: No Changes General: Per HPI Eyes: No Pain, No Vision change, No Conjunctivae inflammation, No Eyelid inflammation, No Other, No Redness ENT: No Ear pain, No Ear discharge, No Nose pain, No Nose discharge, No Nose congestion, No Mouth pain, No Mouth swelling, No Throat pain, No Throat swelling, No Other Cardiovascular: No Chest Pain, No Palpitations, No Orthopnea, No Paroxysmal Noc. Dyspnea, No Edema, No Lt Headedness, No Other Respiratory: Cough; No Dry; Shortness of breath; No SOB with excertion, No Wheezing, No Hemoptysis, No Pleuritic Pain; Sputum; No Other Gastrointestinal: No Nausea, No Vomiting, No Abdominal Pain, No Diarrhea, No Constipation, No Melena, No Hematochezia, No Other Genitourinary: No Dysuria, No Frequency, No Incontinence, No Hematuria, No Retention, No Other Musculoskeletal: No other, No neck pain, No shoulder pain, No arm pain, No back pain, No hand pain, No leg pain, No foot pain Skin: No Rash, No Lesions, No Jaundice, No Bruising, No Other Objective Vitals Vital Signs Date Time Temp Pulse Resp B/P (MAP) Pulse Ox O2 Delivery O2 Flow Rate FiO2 02/12/25 11:19 60 16 100 02/12/25 11:13 Nasal Cannula* 2 28 02/12/25 09:13 117/51 02/12/25 08:30 97.3 97.3 Intake/Output Intake and Output 02/12/25 07:00 Intake Total 300 ml Balance 300 ml IV Total 300 ml # Voids 3 General Appearance: Alert, Oriented X3, Cooperative, mild distress, Other (Obese) HEENT: Atraumatic, PERRLA Cardiovascular: Normal S1, Normal S2 Abdomen: Normal bowel sounds Genitourinary: No Apparent Abnormalities Musculoskeletal: Normal sensory function, Normal motor function Neuro: Normal gait, Normal speech Skin: Dry, Intact Psych/Mental Status: Mental status NL, Mood NL Medications Current Medications Medications Dose Ordered Sig/Amisha Route Start Time Stop Time Status Last Admin Dose Admin Diagnostic Test (Pha) 1 strip ACHS 02/04/25 17:00 02/12/25 11:30 1 STRIP Insulin Human Regular ACHS SC 02/04/25 17:00 02/12/25 12:40 6 UNITS Dextrose 50 ml UD PRN IV 02/04/25 15:45 Hydralazine HCl 10 mg Q6HP PRN IV 02/04/25 15:45 02/11/25 17:10 10 MG Gabapentin 300 mg TID PO 02/04/25 22:00 02/12/25 06:00 300 MG Fluoxetine HCl 20 mg DAILY PO 02/05/25 10:00 02/12/25 09:13 20 MG Levothyroxine Sodium 125 mcg QAM@0600 PO 02/05/25 06:00 02/12/25 06:01 125 MCG Aspirin 81 mg DAILY PO 02/05/25 10:00 02/12/25 09:14 81 MG Atorvastatin Calcium 20 mg HS PO 02/04/25 22:00 02/11/25 22:02 20 MG Pantoprazole Sodium 40 mg DAILY@0600 PO 02/05/25 06:00 02/12/25 06:01 40 MG Ipratropium [place] 0.5 mg Q4HPRN PRN NEB 02/04/25 15:45 02/05/25 07:49 0.5 MG Ipratropium [place] 0.5 mg Q6HR NEB 02/04/25 18:00 02/12/25 11:13 0.5 MG Ceftriaxone Sodium 50 ml @ 100 mls/hr DAILY@09 IV 02/05/25 09:00 02/12/25 09:12 100 MLS/HR Azithromycin 250 ml @ 125 mls/hr DAILY IV 02/05/25 10:00 02/12/25 11:17 125 MLS/HR Albuterol 2.5 mg Q4HPRN PRN NEB 02/04/25 15:45 02/05/25 07:49 2.5 MG Albuterol 2.5 mg Q6HR NEB 02/04/25 18:00 02/12/25 11:14 2.5 MG Amlodipine Besylate 10 mg DAILY PO 02/07/25 10:00 02/12/25 09:13 10 MG Budesonide 0.5 mg BID NEB 02/06/25 22:00 02/12/25 05:52 0.5 MG Enoxaparin Sodium 40 mg DAILY SC 02/10/25 10:07 02/12/25 09:13 40 MG Lactulose 30 ml BID PO 02/11/25 10:00 02/12/25 09:12 30 ML Insulin Glargine 24 units HS SC 02/11/25 22:00 02/11/25 22:05 24 UNITS Laboratory Results Laboratory Tests 02/10/25 11:24 Microbiology Microbiology Date/Time Source Procedure Growth Status 02/09/25 02:35 Nose MRSA Screen - Final Complete 02/04/25 15:51 Blood Blood Culture - Final NO GROWTH AFTER 5 DAYS OF INCUBATION. Complete Labs and/or images reviewed: Labs reviewed by me, Image(s) reviewed by me Assessment/Plan Assessment/Plan Impression: -acute hypoxic respiratory failure -community-acquired pneumonia, probable Gram-positive/Gram-negative etiology -CKD stage IIIA -obesity -diabetes mellitus -primary hypertension -depression -peripheral neuropathy -acute delirium,? Metabolic encephalopathy Plan: Events: Patient continues to have minimal ambulation. Discussed plan of care with son and grandson. They will the plate possible long-term facility placement. -continue bowel regimen. -bronchodilators, Pulmicort. Solu-Medrol weaned off. -BiPAP p.r.n. -continue antibiotic therapy with Rocephin and azithromycin -regular insulin sliding scale -continue Prozac -continue gabapentin -repeat chest x-ray in a.m. Total time spent with patient discussing and formulating plan of care: 35 minutes. Total time spent with patient and family regarding advance care plannin minutes. This medical document was created using an electronic medical record system with [employer] dictation system. Although this document has been carefully reviewed, there may still be some phonetic and typographical errors. These areas are purely typographical due to imperfections of the software programs, and do not reflect any compromise in the patient's medical care. Plan discussed with: Patient, Other (RN) My Orders Orders - SPENCER HAY NP Procedure Category Date Status Time Chest Xray 1 View XY 02/12/25 Logged 15:10 Date of Service: Feb 12, 2025 Billing Provider: SPENCER HAY NP Common Visit Codes: [id number] INP/OBS CARE(HIGH) Secondary Visit Codes: [id number] CARE PLAN 30 MINUTES SPENCER HAY NP Feb 12, 2025 15:30
--- NOTE | 2025-02-12 16:45 | DVH ---
EXAM: XR Chest, 1 View CLINICAL INDICATION: pna TECHNIQUE: Frontal view of the chest. COMPARISON: XY CHEST PORTABLE on DOS: 02/07/25, XY CHEST PORTABLE on DOS: 02/06/25, XY CHEST XRAY 1 V IEW on DOS: 02/05/25, XY CHEST PORTABLE on DOS: 02/04/25, XY CHEST XRAY 1 VIEW on DOS: 01/03/24 FINDINGS: LUNGS AND PLEURAL SPACES: Left basilar atelectasis or pneumonia. HEART: Cardiomegaly with mild congestion. MEDIASTINUM: Unremarkable. Normal mediastinal contour. BONES/JOINTS: Unremarkable. No acute fracture. TUBES, LINES AND DEVICES: Left-sided cardiac pacemaker. OTHER FINDINGS: . IMPRESSION: 1. Left basilar atelectasis or pneumonia. 2. Cardiomegaly with mild congestion.
[2025-02-13] VITALS (13 sets, daily range): BP systolic 126–156; BP diastolic 49–65; PULSE 60–72; RESP 16–18; TEMP 97.8–98.2; O2SAT 97–100
[2025-02-13] MEDS ORDERED: CEFD300C2 PO (15:28)
--- NOTE | 2025-02-13 15:46 | DVHDS2 ---
Discharge Summary Date of Admission Feb 04, 2025 at 15:36 Date of Discharge: Feb 13, 2025 Admitting Diagnosis Acute hypoxic respiratory failure Labs/Diagnostic Data: Laboratory Results Test 02/13/25 05:36 02/10/25 11:24 02/07/25 06:25 02/06/25 20:22 POC Glucose 168 mg/dl (70-106) White Blood Count 17.1 10^3/uL (4.4-10.8) Red Blood Count 4.55 10^6/uL (4.0-5.20) Hemoglobin 12.4 g/dL (12.2-16.2) Hematocrit 38.6 % (36.0-46.0) Mean Corpuscular Volume 84.8 fL (80.0-100.0) Mean Corpuscular Hemoglobin 27.3 pg (28.0-32.0) Mean Corpuscular Hemoglobin Concent 32.1 g/dL (32.0-36.0) Red Cell Distribution Width 13.1 % (11.8-14.3) Platelet Count 319 10^3/uL (140-450) Mean Platelet Volume 10.4 fL (6.9-10.8) Neutrophils (%) (Auto) 78.9 % (37.0-80.0) Lymphocytes (%) (Auto) 11.0 % (10.0-50.0) Monocytes (%) (Auto) 8.5 % (0.0-12.0) Eosinophils (%) (Auto) 1.2 % (0.0-7.0) Basophils (%) (Auto) 0.4 % (0.0-2.0) Neutrophils # (Auto) 13.5 10 ^3/uL (1.6-8.6) Lymphocytes # (Auto) 1.9 10 ^3/uL (0.4-5.4) Monocytes # (Auto) 1.5 10 ^3/uL (0-1.3) Eosinophils # (Auto) 0.2 10 ^3/uL (0-0.8) Basophils # (Auto) 0.1 10 ^3/uL (0-0.2) Nucleated Red Blood Cells 0.6 % Sodium Level 138 mmol/L (136-145) Potassium Level 4.2 mmol/L (3.5-5.1) Chloride Level 100 mmol/L (98-107) Carbon Dioxide Level 29 mmol/L (20-31) Anion Gap 9 (5-15) Blood Urea Nitrogen 32 mg/dL (9-23) Creatinine 1.10 mg/dL (0.550-1.02) Glomerular Filtration Rate Calc 51 mL/min (>90) BUN/Creatinine Ratio 29.1 (10.0-20.0) Serum Glucose 247 mg/dL (74-106) Calcium Level 10.3 mg/dL (8.7-10.4) Blood Gas Specimen Type Arterial Blood Gas Sample Site Left radial Blood Gas Patient Temperature 37.0 Arterial Blood Date Drawn [id number] Arterial Blood pH 7.367 (7.350-7.450) Arterial Blood Partial Pressure CO2 45.8 mmHg (32.0-45.0) Arterial Blood Partial Pressure O2 123.4 mmHg (83.0-108.0) Arterial Blood HCO3 25.7 mmol/L (21.0-28.0) Arterial Blood Oxygen Saturation 98.1 % (94.0-98.0) Arterial Blood Base Excess 0.1 mmol/L (-2.0-3.0) Arterial Blood Oxyhemoglobin 97.3 % (94.0-98.0) Arterial Blood Carboxyhemoglobin 0.2 % (0.5-1.5) Arterial Blood Methemoglobin 0.6 % (0.0-1.5) Avel Test Yes Blood Gas Total Hemoglobin 12.40 g/dL (12.0-16.0) Blood Gas Set Respiration Rate 12.0 Blood Gas Modality Mask - bipap FiO2 % 40.0 Blood Gas EPAP 5 Blood Gas IPAP 12 Blood Gas Spontaneous Rate 26 Blood Gas Spontaneous Tidal Volume 466 Test 02/05/25 05:50 02/04/25 15:51 02/04/25 12:52 02/04/25 12:00 Total Bilirubin 0.3 mg/dL (0.2-1.0) Aspartate Amino Transferase (AST) 36 U/L (13-40) Alanine Aminotransferase (ALT) 15 U/L (7-40) Alkaline Phosphatase 123 U/L (46-116) Total Protein 7.4 g/dL (5.7-8.2) Albumin 4.1 g/dL (3.2-4.8) Triglycerides Level 127 mg/dL (< 150) Cholesterol Level 156 mg/dL (< 200) LDL Cholesterol 90 mg/dL (< 100) HDL Cholesterol 49 mg/dL (40-59) Troponin I High Sensitivity 61 ng/L (</=34) Influenza Type A Antigen Negative (Negative) Influenza Type B Antigen Negative (Negative) SARS-CoV-2 Antigen (Rapid) Negative (NEGATIVE) Test 02/04/25 09:36 Hemoglobin A1c 9.9 % A1C (<5.7) B-Type Natriuretic Peptide 454.52 pg/mL (0-100) Thyroid Stimulating Hormone (TSH) 0.67 uIU/mL (0.55-4.78) Other Laboratory Tests 02/10/25 11:24 Brief Hx & Hospital Course: History of Present Illness This 79-year-old female with past medical history of diabetes, hypertension, Alzheimer's, hyperlipidemia, hypothyroidism, neuropathy, s/p PPM presents to the ED with a chief complaint of shortness of breath. The patient is alert and oriented to name and poor historian. Grandson reports patient symptoms started a few days ago. Grandson states that the patient was seen by her PCP two days ago and was given oral antibiotics. Grandson states symptoms had worsened, shortness of breath with hypoxemia for which prompted the ED visit. The patient denies fever, chills, chest pain, abdominal pain or other acute symptoms. Course of hospitalization: Patient was found to have levels lower lobe pneumonia on x-ray. Patient had bouts of COPD as well as acute hypoxic episodes, with requirement of BiPAP as well as titration of IV steroids. The patient has improved dramatically with her respiratory status. She was currently on 3 L via nasal cannula, for which she states that is her normal O2 requirements at home. Patient was continued on dual antibiotic therapy given a full course of azithromycin, with continuation of Rocephin. Steroids have been weaned off. Bronchodilators have been continued. Patient had difficulty with deconditioning, now able to ambulate greater than 25 ft with physical therapy. Multiple discussions has been made with the patient's family regarding discharge planning. Patient will be discharged home today with physical therapy as well as continuation of antibiotic, cefdinir 300 mg p.o. b.i.d. for additional five days. She was instructed to follow up with her PCP in 1-2 weeks. All questions answered. Physical examination General: Alert and Oriented x3. No acute distress. Well-nourished. Morbid obesity Eyes: EOMI. Anicteric. HENT: Moist mucous membranes. Lungs: Clear to auscultation bilaterally. No accessory muscle use. Nasal cannula at 3 L Cardiovascular: Regular rate and rhythm. No murmur. No JVD. Abdomen: Soft, non-tender and non-distended. No palpable masses. Extremities: No edema. Non-tender. Skin: No rashes or lesions. Warm. Neurologic: No focal neurological deficits. CN II-XII grossly intact, but not individually tested. Psychiatric: Cooperative. Appropriate mood and affect. Total time spent with patient discussing and formulating plan of care: 35 minutes. This medical document was created using an electronic medical record system with [employer] dictation system. Although this document has been carefully reviewed, there may still be some phonetic and typographical errors. These areas are purely typographical due to imperfections of the software programs, and do not reflect any compromise in the patient's medical care. Condition at Discharge: Guarded Final Diagnosis/Problems List Acute on chronic hypoxic respiratory failure Secondary diagnose: -acute hypoxic respiratory failure -community-acquired pneumonia, probable Gram-positive/Gram-negative etiology -CKD stage IIIA -obesity -diabetes mellitus -primary hypertension -depression -peripheral neuropathy -acute delirium,? Metabolic encephalopathy Discharge Disposition: Home with Health Services Discharge Instruct/Medications Diet: Consistent carbohydrate, Cardiac 2g Na,low cholest Activity: No Restrictions, As Tolerated Follow Up/Referral: Follow up with PCP in 1-2 weeks Medications: Continue all previous home medications Cefdinir 300 mg p.o. b.i.d. x5 days 36 Discharge Statement: "Patient was advised to return to the ER or call 911 if any headaches, dizziness, shortness of breath, chest pain, abdominal pain, bleeding, fevers, or worsening of medical condition. Patient was counseled about treatment plan, medications, possible side effects, patientverbalized understanding. All questions were answered to the best of my ability. This discharge took greater then 30 minutes in planning, reviewing documentation, counseling the patient, and discussing with other team members." ASSESSMENT ASSESSMENT Assessment Acute on chronic hypoxic respiratory failure Date of Service: Feb 13, 2025 Billing Provider: SPENCER HAY NP Common Visit Codes: 83559-TJN/OBS DISCH DAY >30min SPENCER HAY NP Feb 13, 2025 15:46
== END 2025-02-13 19:50 | disposition home health service (06) | DRG 177 ==
LOC: EDBD 09:12 → ER 09:12 → OVERFLOW 15:36 → ER 15:38 → TELE-WESTW 23:49
PROVIDERS: ADMIT Nurse Practitioner Acute Care; ATTEND Nurse Practitioner Acute Care
PROC: 5A09357 Assistance with Respiratory Ventilation, Less than 24 Consecutive Hours, Continuous Positive Airway Pressure (ICD-10-PCS; 2025-02-05)
PROC: 05HF33Z Insertion of Infusion Device into Left Cephalic Vein, Percutaneous Approach (ICD-10-PCS; principal; 2025-02-06)
PROC: B54NZZA Ultrasonography of Left Upper Extremity Veins, Guidance (ICD-10-PCS; 2025-02-06)
PROC: 5A09357 Assistance with Respiratory Ventilation, Less than 24 Consecutive Hours, Continuous Positive Airway Pressure (ICD-10-PCS; 2025-02-06)
PROC: 5A09357 Assistance with Respiratory Ventilation, Less than 24 Consecutive Hours, Continuous Positive Airway Pressure (ICD-10-PCS; 2025-02-07)
DX: J15.69 Pneumonia due to other Gram-negative bacteria (principal); G93.41 Metabolic encephalopathy; J96.21 Acute and chronic respiratory failure with hypoxia; J44.0 Chronic obstructive pulmonary disease with (acute) lower respiratory infection; N17.9 Acute kidney failure, unspecified; J15.9 Unspecified bacterial pneumonia; E11.22 Type 2 diabetes mellitus with diabetic chronic kidney disease; E78.5 Hyperlipidemia, unspecified; K21.9 Gastro-esophageal reflux disease without esophagitis; F32.A Depression, unspecified; Z20.822 Contact with and (suspected) exposure to COVID-19; I12.9 Hypertensive chronic kidney disease with stage 1 through stage 4 chronic kidney disease, or unspecified chronic kidney disease; G30.9 Alzheimer's disease, unspecified; N18.31 Chronic kidney disease, stage 3a; E66.01 Morbid (severe) obesity due to excess calories; F02.80 Dementia in other diseases classified elsewhere, unspecified severity, without behavioral disturbance, psychotic disturbance, mood disturbance, and anxiety; E11.42 Type 2 diabetes mellitus with diabetic polyneuropathy; I25.10 Atherosclerotic heart disease of native coronary artery without angina pectoris; E03.9 Hypothyroidism, unspecified; Z95.0 Presence of cardiac pacemaker; Z88.0 Allergy status to penicillin; Z91.041 Radiographic dye allergy status; Z79.899 Other long term (current) drug therapy; Z68.35 Body mass index [BMI] 35.0-35.9, adult
CPT/HCPCS: 36415; 36600; 71045; 80048; 80053; 80061; 82805; 82962; 83036; 83880; 84443; 84484; 85025; 87040; 87081; 87426; 87804; 93005; 94640; 94660; 96365; 96375; 97110; 97116; 97163; 97530; 99291; G0378; J1815

== ENCOUNTER 2025-07-13 14:55 | Inpatient (IN) | payer OTHER, MEDICAID ==
[~2025-07-13] VITALS: Ht 152.4 cm; Wt 87.3 kg
[2025-07-13] MEDS: SODIUM CHLORIDE 0.9% 1,000 ML IV ONE (00:40)
[~2025-07-13 14:55] MED LIST changes: -APIX5TAB PO; -AZIT-185 PO; +CEFD300C2 PO; +DICY20TA2 PO; -DOC100C PO; -DOXY-346 PO; -FLUO20CA19 PO; -METF100097 PO; -SENN8.6T21 PO; -VALS160T53 PO
--- NOTE | 2025-07-13 15:21 | ED.PDOC ---
Altered Mental Status HPI Comments This is a 79 year old female BIBA presenting to the ED with chief complaint of ALOC. EMS reports that the patient's family has noted the patient is more lethargic than usual with hypertension, however, on scene patient was hypotensive. EMS relays that the patient is unable to answer questions appropriately due to history of Alzheimer's and is altered at baseline. EMS denies any further history of complaints at this time. Vital signs were stable. Time Seen by MD: 15:20 Primary Care Provider: CHYNA Reviewed Notes: Nurses Notes, Field Recruiter Notes, Medications, Allergies Allergies: Coded Allergies: Penicillins (Verified Allergy, Unknown, 05/26/23) Uncoded Allergies: CONTRAST (Allergy, Unknown, 05/14/23) IV CONTRAST (Allergy, Unknown, 05/14/23) Home Meds Active Scripts Cefdinir (Cefdinir) 300 Mg Cap, 1 CAP PO BID for 5 Days, #10 CAP Prov:SPENCER HAY WANT AD SUPERVISOR 02/13/25 Reported Medications Dicyclomine HCl (Dicyclomine Hydrochloride) 20 Mg Tab, 1 TAB PO TID 02/04/25 Simvastatin (Simvastatin) 40 Mg Tab, 40 MG PO DAILY 12/25/12 Levothyroxine Sodium (Levothyroxine Sodium) 25 Mcg Tab, 25 MCG PO DAILY 12/25/12 [Humulog] No Conflict Check 12/25/12 [Lantus] No Conflict Check, 45 UNITS SUBCUT HS 12/25/12 [Pantoprazole 40MG Tablets] No Conflict Check, 40 MG PO DAILY 12/25/12 Gabapentin (Neurontin) 300 Mg Cap, 600 MG PO TID, 0 Refills 04/19/10 Information Source: Emergency Med Personnel Mode of Arrival: EMS Severity: Moderate, Unable to Care for Self Timing: Days Duration: Since onset Prehospital treatment: None Quality: Decreased Alertness, Change in Behavior, Confusion Recent: None History of: Dementia Past Medical History PAST MEDICAL HISTORY: Alzheimer, CAD, DM, High Lipids, HTN Surgical History: Denies all surgeries TRUCKING CONTRACTOR History: No Pertinent TRUCKING CONTRACTOR History Family History Family History: Unknown Social History Smoker: Non-Smoker Alcohol: Denies ETOH Use Drugs: Denies Drug Use Lives In: Home Constitutional: reports: fatigue, malaise, weakness; denies: chills, diaphoresis, fever, sweats, others EENTM: denies: blurred vision, double vision, ear bleeding, ear discharge, ear drainage, ear pain, ear ringing, eye pain, eye redness, hearing loss, mouth pain, mouth swelling, nasal discharge, nose bleeding, nose congestion, nose pain, photophobia, tearing, throat pain, throat swelling, voice changes, others Respiratory: denies: cough, hemoptysis, orthopnea, SOB at rest, shortness of breath, SOB with excertion, stridor, wheezing, others Cardiovascular: denies: chest pain, dizzy spells, diaphoresis, Dyspnea on exertion, edema, irregular heart beat, left arm pain, lightheadedness, palpitations, PND, syncope, others Gastrointestinal: denies: abdomen distended, abdominal pain, blood streaked bowels, constipated, diarrhea, dysphagia, difficulty swallowing, hematemesis, melena, nausea, poor appetite, poor fluid intake, rectal bleeding, rectal pain, vomiting, others Genitourinary: denies: abnormal vagina bleeding, burning, dyspareunia, dysuria, flank pain, frequency, hematuria, incontinence, pain, , vagina discharge, urgency, others Neurological: denies: dizziness, fainting, headache, left sided numbness, left sided weakness, numbness, paresthesia, pre-existing deficit, right sided numbness, right sided weakness, seizure, speech problems, tingling, tremors, weakness, others Musculoskeletal: denies: back pain, gout, joint pain, joint swelling, muscle pain, muscle stiffness, neck pain, others Integumetry: denies: bruises, change in color, change in hair/nails, dryness, laceration, lesions, lumps, rash, wounds, others Allergic/Immunocompromised: denies: Difficulty Healing, Frequent Infections, Hives, Itching, others Hematologic/Lymphatic: denies: anemia, blood clots, easy bleeding, easy bruising, swollen glands, others Endocrine: denies: excessive hunger, excessive sweating, excessive thirst, excessive urination, flushing, intolerance to cold, intolerance to heat, unexplained weight gain, unexplained weight loss, others Psychiatric: denies: anxiety, bipolar disorder, depression, hopeless, panic disorder, schizophrenia, sleepless, suicidal, others Unable to Obtain due to: Altered Mental Status All Other Systems: Reviewed and Negative Physical Exam General Appearance: Moderate Distress (Patient appears to be in poor overall health and displays progressive Alzheimer's signs.), Normal HEENT: Normal ENT Inspection, Pharynx Normal, TMs Normal Neck: Full Range of Motion, Non-Tender, Normal, Normal Inspection Respiratory: Chest Non-Tender, Lungs Clear, No Accessory Muscle Use, No Respiratory Distress, Normal Breath Sounds Cardiovascular: No Edema, No JVD, No Murmur, No Gallop, Normal Peripheral Pulses, Regular Rate/Rhythm Breast Exam: Deferred Gastrointestinal: No Organomegaly, Non Tender, No Pulsatile Mass, Normal Bowel Sounds, Soft Genitalia: Deferred Pelvic: Deferred Rectal: Deferred Extremities: Leg edema, Non-tender Neurologic: Disoriented, Other (Patient appears weak.) Cerebellar Function: NOT DONE Reflexes: NOT DONE Skin: Dry, Normal Color, Warm Lymphatic: No Adenopathy Was a procedure done? Was a procedure done?: No Differential Diagnosis (ALOC) Differential Diagnosis: Dehydration, Hypoglycemia, Encephalopathy, Other (Sepsis, electrolyte abnormality, UTI) X-Ray, Labs, Meds, VS Vital Signs Date Time Temp Pulse Resp B/P (MAP) Pulse Ox O2 Delivery O2 Flow Rate FiO2 07/13/25 18:00 97.0 82 17 159/40 (79) 99 97.0 07/13/25 16:05 60 07/13/25 15:30 64 15 98 Room Air* 0 21 07/13/25 15:28 98.3 60 13 151/47 (81) 95 98.3 07/13/25 15:10 98.3 67 15 146/71 99 98.3 07/13/25 15:00 60 Lab Test 07/13/25 18:55 07/13/25 18:39 07/13/25 15:51 Range/Units Urine Color Dark-brown Yellow Urine Clarity Ex.turbid Clear Urine pH 5.5 5.0-9.0 Urine Specific [place] 1.012 1.001-1.035 Urine Protein 2+ H Negative Urine Ketones 1+ H Negative Urine Blood 2+ H Negative /uL Urine Nitrite Negative Negative Urine Bilirubin Negative Negative Urine Urobilinogen 2 H Negative mg/dL Urine Leukocyte Esterase 3+ Negative /uL Urine RBC 18 0 - 4 /hpf Urine WBC Clumps Present None Seen /hpf Urine Microscopic WBC 5918 H 0-5 /HPF Urine Squamous Epithelial Cells Few <5 /hpf Urine Bacteria None seen None Seen /hpf Urine Glucose 2+ H Normal mg/dL Troponin I High Sensitivity 4 6 </=34 ng/L White Blood Count 11.2 H 4.4-10.8 10^3/uL Red Blood Count 4.35 4.0-5.20 10^6/uL Hemoglobin 11.8 L 12.2-16.2 g/dL Hematocrit 35.4 L 36.0-46.0 % Mean Corpuscular Volume 81.5 80.0-100.0 fL Mean Corpuscular Hemoglobin 27.1 L 28.0-32.0 pg Mean Corpuscular Hemoglobin Concent 33.3 32.0-36.0 g/dL Red Cell Distribution Width 12.9 11.8-14.3 % Platelet Count 373 140-450 10^3/uL Mean Platelet Volume 9.1 6.9-10.8 fL Neutrophils (%) (Auto) 56.6 37.0-80.0 % Lymphocytes (%) (Auto) 25.3 10.0-50.0 % Monocytes (%) (Auto) 13.1 H 0.0-12.0 % Eosinophils (%) (Auto) 3.5 0.0-7.0 % Basophils (%) (Auto) 1.5 0.0-2.0 % Neutrophils # (Auto) 6.3 1.6-8.6 10 ^3/uL Lymphocytes # (Auto) 2.8 0.4-5.4 10 ^3/uL Monocytes # (Auto) 1.5 H 0-1.3 10 ^3/uL Eosinophils # (Auto) 0.4 0-0.8 10 ^3/uL Basophils # (Auto) 0.2 0-0.2 10 ^3/uL Nucleated Red Blood Cells 0.1 % Sodium Level 130 L 136-145 mmol/L Potassium Level 4.6 3.5-5.1 mmol/L Chloride Level 95 L 98-107 mmol/L Carbon Dioxide Level 26 20-31 mmol/L Anion Gap 9 5-15 Blood Urea Nitrogen 25 H 9-23 mg/dL Creatinine 1.46 H 0.550-1.02 mg/dL Glomerular Filtration Rate Calc 36 >90 mL/min BUN/Creatinine Ratio 17.1 10.0-20.0 Serum Glucose 248 H 74-106 mg/dL Lactic Acid Level 1.6 0.4-2.0 mmol/L Calcium Level 9.3 8.7-10.4 mg/dL Total Bilirubin 0.3 0.2-1.0 mg/dL Aspartate Amino Transferase (AST) 15 13-40 U/L Alanine Aminotransferase (ALT) < 9 7-40 U/L Alkaline Phosphatase 160 H 46-116 U/L B-Type Natriuretic Peptide 288.09 0-100 pg/mL Total Protein 7.6 5.7-8.2 g/dL Albumin 4.0 3.2-4.8 g/dL Lipase 33 12-53 U/L Current Medications Medications (Trade) Dose Ordered Sig/Amisha Route Start Time Stop Time Status Last Admin Ceftriaxone Sodium 50 ml @ 100 mls/hr ONCE ONCE IV 07/13/25 20:00 07/13/25 20:29 DC 07/13/25 20:20 X-Ray, Labs, Meds, VS Comment All studies performed in the ED were evaluated by me personally. Patient's serum evaluation revealed a leukocytosis, anemia, hyponatremia, what appears to be acute renal concerns as well as hyperglycemia and an elevated alk-phos. Patient's urine was the most pyuric I have experienced. Patient has a significant urinary tract infection and therefore, patient will be admitted for IV antibiotics to address her urine concerns as well as management of her other comorbidities. Time of 1ST Reevaluation: 20:38 Reevaluation 1ST: Improved Consultation: PCP Patient Education/Counseling: Diagnosis, Treatment, Other (Patient altered) Family Education/Counseling: Diagnosis, Treatment, No Family Present SEPSIS Sepsis Screen Recent Procedure: No On Antibiotic Therapy: No Respiratory Rate >20: No Heart Rate >90: No Temp<36 C (96.8 F) or >38.3 C: No SBP <90 or MAP <65 mmHG: No New Acute Mental Status Change: No Is the patient on CPAP, BIPAP,: No Physician Orders Troponin-I Hs (07/13/25 18:20) Electrocardigram (07/13/25 15:20) Straightcath If Unable To Void (07/13/25 15:20) Insert Ryan Catheter QSHIFT (07/13/25 18:52) Urine Bacterial Culture (07/13/25 18:52) Vital Signs Date Time Temp Pulse Resp B/P (MAP) Pulse Ox O2 Delivery O2 Flow Rate FiO2 07/13/25 18:00 97.0 82 17 159/40 (79) 99 97.0 07/13/25 16:05 60 07/13/25 15:30 64 15 98 Room Air* 0 21 07/13/25 15:28 98.3 60 13 151/47 (81) 95 98.3 07/13/25 15:10 98.3 67 15 146/71 99 98.3 07/13/25 15:00 60 Laboratory Tests Test 07/13/25 15:51 Lactic Acid Level 1.6 mmol/L (0.4-2.0) White Blood Count 11.2 10^3/uL (4.4-10.8) H Medications Medications Dose Ordered Sig/Amisha Route Start Time Stop Time Status Last Admin Dose Admin Ceftriaxone Sodium 50 ml @ 100 mls/hr ONCE ONCE IV 07/13/25 20:00 07/13/25 20:29 DC 07/13/25 20:20 Departure 1 Departure Time of Disposition: 20:39 Impression: Primary Impression: Urinary tract infection Additional Impressions: Anemia Hyponatremia Acute renal injury Hyperglycemia Elevated alkaline phosphatase level Alzheimer's dementia Disposition: ADMITTED INPATIENT Condition: Stable Discharged With: Self, Relative Critical Care Note Critical Care Time?: No Stability Stability form required: No Heart Score Heart Score: Heart Score Response (Comments) Value History Slightly Suspicious 0 EKG Repolarization Disturb 1 Age >65 2 Risk Factors 1 or 2 risk factors 1 Troponin Normal limit 0 Total 4 I personally scribed for LATA JOHNSON PAC ([email or web address]) on 07/13/25 at 15:21. Electronically submitted by Asim Craft ([email or web address]). LATA JOHNSON PAC Jul 13, 2025 15:21
[2025-07-13 15:30] VITALS: PULSE 64; RESP 15; O2SAT 98
[2025-07-13 16:15] LABS: Hematocrit 35.4 % (36.0-46.0); Hemoglobin 11.8 g/dL (12.2-16.2); Mean Corpuscular Hemoglobin 27.1 pg (28.0-32.0); Mean Corpuscular Volume 81.5 fL (80.0-100.0); Nucleated Red Blood Cells % 0.1 %
[2025-07-13 16:27] LABS: Albumin 4.0 g/dL (3.2-4.8); Anion Gap 9 (5-15); BUN/Creatinine Ratio 17.1 (10.0-20.0); Calcium 9.3 mg/dL (8.7-10.4); Carbon Dioxide 26 mmol/L (20-31); Lipase 33 U/L (12-53); Potassium 4.6 mmol/L (3.5-5.1); Total Protein 7.6 g/dL (5.7-8.2)
[2025-07-13 16:32] LABS: Alanine Aminotransferase < 9 U/L (7-40); Alkaline Phosphatase 160 U/L (46-116); Bilirubin, Total 0.3 mg/dL (0.2-1.0); Blood Urea Nitrogen 25 mg/dL (9-23); Chloride 95 mmol/L (98-107); Glucose 248 mg/dL (74-106); Sodium 130 mmol/L (136-145)
[2025-07-13 19:05] LABS: Urine Protein, UAD 2+ (Negative); Urine WBC Clumps PRESENT /hpf (None Seen)
[2025-07-13] MEDS: cefTRIAXone 1GM/50ML D5W 50 ML IV ONE (20:20)
--- NOTE | 2025-07-13 22:41 | DVHHPRES ---
History of Present Illness Resident Creating Document: KAYCE RIVERA RESIDENT History of Present Illness Luz Elena Patel is a 79 year old female, with past medical history of dementia, hypertension, hyperlipidemia and DM type 2. The patient was brought to the ED via EMS. The family reported to EMS team that they noticed the patient with altered mental status from baseline, lethargic and elevated blood pressure. On the ED the UA is positive, WBC: 11.2 X10e3/ul, and hyperglycemic 248mg/dl. The patient is a confused at the moment, oriented only in person,she is a poor historian. We will contact the family to obtain further details. At the moment vital signs are within normal limits, patient is not in distress. The patient will be admitted for further evaluation and management. Cardiovascular: HTN, hyperipidemia [employer]: Dementia Endocrine: Diabetes (Type 2) Past Surgical History: None Past Surgical History Patient is confused, not reliable information was provided. Family History: None Family History Patient is confused, not reliable information was provided. Past Social History Patient is confused, not reliable information was provided. Review of Systems Review of Systems Patient is confused, not reliable information was provided. Constitutional: Yes: Weakness; No: Fever, Chills, Sweats, Malaise, Other Eyes: No: Pain, Vision change, Conjunctivae inflammation, Eyelid inflammation, Other, Redness Respiratory: No: Cough, Dry, Shortness of breath, SOB with excertion, Wheezing, Hemoptysis, Pleuritic Pain, Sputum, Wheezing, Other Cardiovascular: No: Chest Pain, Palpitations, Orthopnea, Paroxysmal Noc. Dyspnea, Edema, Lt Headedness, Other Gastrointestinal: Abdominal Pain (Left flank); No: Nausea, Vomiting, Diarrhea, Constipation, Melena, Hematochezia, Other Genitourinary: No Dysuria, No Frequency, No Incontinence, No Hematuria, No Retention, No Other Musculoskeletal: No: other, neck pain, shoulder pain, arm pain, back pain, hand pain, leg pain, foot pain Skin: No: Rash, Lesions, Jaundice, Bruising, Other Neurological: No: Weakness, Numbness, Incoordination, Change in speech, Confusion, Seizures, Other Allergies: Coded Allergies: Penicillins (Verified Allergy, Unknown, 05/26/23) Uncoded Allergies: CONTRAST (Allergy, Unknown, 05/14/23) IV CONTRAST (Allergy, Unknown, 05/14/23) Medications Current Medications Medications Dose Ordered Sig/Amisha Route Start Time Stop Time Status Last Admin Dose Admin Acetaminophen 650 mg Q6HP PRN PO 07/13/25 22:15 Enoxaparin Sodium 30 mg DAILY SC 07/14/25 10:00 Pantoprazole Sodium 40 mg DAILY IV 07/14/25 10:00 Exam Vital Signs Vital Signs Date Time Temp Pulse Resp B/P (MAP) Pulse Ox O2 Delivery O2 Flow Rate FiO2 07/13/25 18:00 97.0 82 17 159/40 (79) 99 97.0 07/13/25 15:30 Room Air* 0 21 General Appearance: Alert, Cooperative, No acute distress HEENT: Atraumatic, Mucous membr. moist/pink Respiratory: Clear to auscultation, Normal air movement Cardiovascular: Regular rate, Normal S1, Normal S2, No murmurs Abdominal: Normal bowel sounds, Soft, Other (Abdomen is depressible, tender to deep palpation on left flank, costo vertebral angle positive on the left side. ) Extremities: No clubbing, No cyanosis, No edema, Normal pulses, No tenderness/swelling Skin: No rashes, No breakdown, No significant lesion Neuro: Normal gait, Normal speech, Strength at 5/5 X4 ext, Normal tone, Sensation intact Psych/Mental Status: Mental status NL, Mood NL Labs/Xrays Labs Test 07/13/25 20:54 07/13/25 18:55 07/13/25 15:51 Range/Units Troponin I High Sensitivity 3 L </=34 ng/L Urine Color Dark-brown Yellow Urine Clarity Ex.turbid Clear Urine pH 5.5 5.0-9.0 Urine Specific [place] 1.012 1.001-1.035 Urine Protein 2+ H Negative Urine Ketones 1+ H Negative Urine Blood 2+ H Negative /uL Urine Nitrite Negative Negative Urine Bilirubin Negative Negative Urine Urobilinogen 2 H Negative mg/dL Urine Leukocyte Esterase 3+ Negative /uL Urine RBC 18 0 - 4 /hpf Urine WBC Clumps Present None Seen /hpf Urine Microscopic WBC 5918 H 0-5 /HPF Urine Squamous Epithelial Cells Few <5 /hpf Urine Bacteria None seen None Seen /hpf Urine Glucose 2+ H Normal mg/dL White Blood Count 11.2 H 4.4-10.8 10^3/uL Red Blood Count 4.35 4.0-5.20 10^6/uL Hemoglobin 11.8 L 12.2-16.2 g/dL Hematocrit 35.4 L 36.0-46.0 % Mean Corpuscular Volume 81.5 80.0-100.0 fL Mean Corpuscular Hemoglobin 27.1 L 28.0-32.0 pg Mean Corpuscular Hemoglobin Concent 33.3 32.0-36.0 g/dL Red Cell Distribution Width 12.9 11.8-14.3 % Platelet Count 373 140-450 10^3/uL Mean Platelet Volume 9.1 6.9-10.8 fL Neutrophils (%) (Auto) 56.6 37.0-80.0 % Lymphocytes (%) (Auto) 25.3 10.0-50.0 % Monocytes (%) (Auto) 13.1 H 0.0-12.0 % Eosinophils (%) (Auto) 3.5 0.0-7.0 % Basophils (%) (Auto) 1.5 0.0-2.0 % Neutrophils # (Auto) 6.3 1.6-8.6 10 ^3/uL Lymphocytes # (Auto) 2.8 0.4-5.4 10 ^3/uL Monocytes # (Auto) 1.5 H 0-1.3 10 ^3/uL Eosinophils # (Auto) 0.4 0-0.8 10 ^3/uL Basophils # (Auto) 0.2 0-0.2 10 ^3/uL Nucleated Red Blood Cells 0.1 % Sodium Level 130 L 136-145 mmol/L Potassium Level 4.6 3.5-5.1 mmol/L Chloride Level 95 L 98-107 mmol/L Carbon Dioxide Level 26 20-31 mmol/L Anion Gap 9 5-15 Blood Urea Nitrogen 25 H 9-23 mg/dL Creatinine 1.46 H 0.550-1.02 mg/dL Glomerular Filtration Rate Calc 36 >90 mL/min BUN/Creatinine Ratio 17.1 10.0-20.0 Serum Glucose 248 H 74-106 mg/dL Lactic Acid Level 1.6 0.4-2.0 mmol/L Calcium Level 9.3 8.7-10.4 mg/dL Total Bilirubin 0.3 0.2-1.0 mg/dL Aspartate Amino Transferase (AST) 15 13-40 U/L Alanine Aminotransferase (ALT) < 9 7-40 U/L Alkaline Phosphatase 160 H 46-116 U/L B-Type Natriuretic Peptide 288.09 0-100 pg/mL Total Protein 7.6 5.7-8.2 g/dL Albumin 4.0 3.2-4.8 g/dL Lipase 33 12-53 U/L SEPSIS Sepsis Screen Date sepsis recognized/suspect: Jul 13, 2025 Time Sepsis recognized/suspect: 1527 Recent Procedure: No On Antibiotic Therapy: No Respiratory Rate >20: No Heart Rate >90: No Temp<36 C (96.8 F) or >38.3 C: No SBP <90 or MAP <65 mmHG: No New Acute Mental Status Change: No Is the patient on CPAP, BIPAP,: No Physician Orders Electrocardigram (07/13/25 15:20) Straightcath If Unable To Void (07/13/25:20) Insert Ryan Catheter QSHIFT (07/13/25 18:52) Urine Bacterial Culture (07/13/25 18:52) Admit (07/13/25 22:14) Code Status (07/13/25:14) Vital Signs .PER UNIT PROTOCOL (07/13/25 22:14) Review Orders With Adm.Md (07/13/25 22:14) Bedside Commode (07/13/25 22:14) Consistent Carb(Ccho)Diabetes (07/14/25 Breakfast) Acetaminophen Tablet (Tylenol Tablet) (07/13/25 22:15) Notify Md Of Changes From Base (07/13/25 22:14) Advance Directive (07/13/25 22:14) Basic Metabolic Panel (07/14/25 04:00) Complete Blood Count (07/14/25 04:00) Blood Culture (07/13/25 22:14) Patient Condition (07/13/25 22:14) Allergies (07/13/25 22:14) Drug Screen (07/13/25 22:14) Enoxaparin Sodium (Lovenox) (07/14/25 10:00) Notify Md Of Changes From Base (07/13/25 22:14) Pantoprazole (Protonix) (07/14/25 10:00) Rapid Influenza A&B (07/13/25 22:14) Covid19 Antigen Ashlee (07/13/25 ) Vital Signs Date Time Temp Pulse Resp B/P (MAP) Pulse Ox O2 Delivery O2 Flow Rate FiO2 07/13/25 18:00 97.0 82 17 159/40 (79) 99 97.0 07/13/25 16:05 60 07/13/25 15:30 64 15 98 Room Air* 0 21 07/13/25 15:28 98.3 60 13 151/47 (81) 95 98.3 07/13/25 15:10 98.3 67 15 146/71 99 98.3 07/13/25 15:00 60 Laboratory Tests Test 07/13/25 15:51 Lactic Acid Level 1.6 mmol/L (0.4-2.0) White Blood Count 11.2 10^3/uL (4.4-10.8) H Medications Medications Dose Ordered Sig/Amisha Route Start Time Stop Time Status Last Admin Dose Admin Ceftriaxone Sodium 50 ml @ 100 mls/hr ONCE ONCE IV 07/13/25 20:00 07/13/25 20:29 DC 07/13/25 20:20 100 MLS/HR Assessment/Plan Assessment/Plan #Altered Mental Status possible metabolic encephalopathy. #Complicated UTI, possible pyelonephritis. IV fluid: NS UA Urine culture Renal US Blood culture Ceftriaxone 1g IV #Influenza A&B Antigen positive Oseltamivir 75mg #YVONNE due to VMN IV fluids BP control Avoid nephrotoxic drugs Monitor Crea and BUN #Diabetes Mellitus with Hyperglycemia HbA1C Insulin Sliding scale #Dementia Medication reconciliation #Hypertension Medication #Obesity Life style changes Diabetic diet DVT prophylaxis- Lovenox 30 Sc PUD prophylaxis Protonics. Goals of care discussed with the patient > 35 min. Discussed plan of care with Dr. Naidu Code status: Full code PCP: Patient does not remember. Plan discussed with: Patient, the patient agrees with the admission plan. Plan discussed with: Patient My Orders Orders - KAYCE RIVERA RESIDENT Procedure Category Date Status Time Admit ADMIT 07/13/25 Transmitted 22:14 Code Status CODE 07/13/25 Transmitted 22:14 Vital Signs CA 07/13/25 In Process 22:14 Review Orders With CA 07/13/25 In Process Adm. 22:14 Bedside Commode CA 07/13/25 In Process 22:14 Consistent DIET 07/14/25 Transmitted Carb(Ccho)Diabetes Breakfast Acetaminophen Tablet PHA 07/13/25 In Process (Tylenol Tablet) 22:15 Notify Of Changes CA 07/13/25 In Process From Base 22:14 Advance Directive CA 07/13/25 In Process 22:14 Basic Metabolic Panel LAB 07/14/25 Verified 04:00 Complete Blood Count LAB 07/14/25 Verified 04:00 Blood Culture MOMO 07/13/25 Logged 22:14 Patient Condition ORDERS 07/13/25 Transmitted 22:14 Allergies CA 07/13/25 In Process 22:14 Drug Screen LAB 07/13/25 In Process 22:14 Enoxaparin Sodium PHA 07/14/25 In Process (Lovenox) 10:00 Notify Of Changes CA 07/13/25 In Process From Base 22:14 Pantoprazole PHA 07/14/25 In Process (Protonix) 10:00 Rapid Influenza A&B LAB 07/13/25 Logged 22:14 Covid19 Antigen Ashlee LAB 07/13/25 Logged Date of Service: Jul 13, 2025 Billing Provider: MILKA NAIDU MD Common Visit Codes: [id number] INP/OBS CARE (HIGH) Secondary Visit Codes: [id number] CARE PLAN 30 MINUTES KAYCE RIVERA RESIDENT Jul 13, 2025 22:41
[2025-07-13] MEDS: SODIUM CHLORIDE 0.9% 500 ML IV ONE (23:11)
[2025-07-13] MEDS ORDERED: DEXTROSE (50%) 50ML SYRG IV PRN (23:30)
[2025-07-14 00:09] LABS: COVID19 ANTIGEN SOFIA FIA NEGATIVE (NEGATIVE)
[2025-07-14] MEDS: ACCU-CHEK COMFORT CURVE STRIP VI SCH (00:09)
[2025-07-14] MEDS: InsuLIN REG 1unit/0.01ml Soln (100units/ml) SC SCH (00:39)
[2025-07-14] MEDS: ACETAMINOPHEN 325 MG TAB PO PRN (00:57)
[2025-07-14] MEDS: OSELTAMIVIR 75 MG CAP PO SCH (02:46)
--- NOTE | 2025-07-14 03:28 | DVH ---
CHEST RADIOGRAPH Indication: R/O chest conditions Technique: Single frontal view of the chest was obtained Comparison: XY CHEST XRAY 1 VIEW on DOS: 02/12/25, XY CHEST PORTABLE on DOS: 02/07/25, XY CHEST PORTABL E on DOS: 02/06/25, XY CHEST XRAY 1 VIEW on DOS: 02/05/25, XY CHEST PORTABLE on DOS: 02/04/25 FINDINGS: Lines and Tubes: Left chest pacer. Lungs: No focal consolidation. Mild pulmonary vascular congestion. Pleura: No effusion. No pneumothorax. Cardiomediastinal contours: Mild cardiomegaly. Calcified aortic arch. Bones: No acute osseous abnormality. IMPRESSION: 1. Mild pulmonary vascular congestion. Mild cardiomegaly. No focal consolidations.
--- NOTE | 2025-07-14 03:30 | DVH ---
INDICATION: Left flank abdominal plain/ R/O Renal causes TECHNIQUE: Multiple real-time sonographic images of the kidneys and bladder were obtained. COMPARISON: None FINDINGS: RIGHT KIDNEY: Measures 10.3 cm. Normal in echogenicity. No mass. No urinary stones. No hydronephrosis . LEFT KIDNEY: Measures 10.4 cm. Normal in echogenicity. No mass. Nonobstructive subcentimeter stone. No hydronephrosis. BLADDER: Ryan catheter within. IMPRESSION: 1. No acute process. No hydronephrosis. 2. Nonobstructive subcentimeter stone within left kidney.
[2025-07-14 03:34] LABS: Amphetamine Screen, Urine Neg (NEGATIVE); Barbiturate Scree,Urine Neg (NEGATIVE); Benzodiazephine Screen, Urine Neg (NEGATIVE); Cannabinoid Screen, Urine Neg (NEGATIVE); Cocaine Screen, Urine Neg (NEGATIVE); Opiate Scree,Urine Neg (NEGATIVE); Phencyclidine Screen, Urine Neg (NEGATIVE)
[2025-07-14 04:56] LABS: Hematocrit 33.6 % (36.0-46.0); Hemoglobin 11.4 g/dL (12.2-16.2); Mean Corpuscular Hemoglobin 27.4 pg (28.0-32.0); Mean Corpuscular Volume 80.6 fL (80.0-100.0); Nucleated Red Blood Cells % 0.0 %
[2025-07-14 05:06] LABS: Chloride 99 mmol/L (98-107); Potassium 4.0 mmol/L (3.5-5.1)
[2025-07-14 05:07] LABS: Anion Gap 9 (5-15); Carbon Dioxide 26 mmol/L (20-31)
[2025-07-14 05:08] LABS: Calcium 9.3 mg/dL (8.7-10.4); Sodium 134 mmol/L (136-145)
[2025-07-14 05:12] LABS: BUN/Creatinine Ratio 17.4 (10.0-20.0); Blood Urea Nitrogen 20 mg/dL (9-23)
[2025-07-14 05:14] LABS: Glucose 123 mg/dL (74-106)
[2025-07-14 06:28] VITALS: BP 136/72; PULSE 65; PULSE 70; RESP 16; RESP 18; TEMP 98; O2SAT 97; O2SAT 99
[2025-07-14] MEDS: INSULIN LANTUS (GLARGINE) 1 /0.01ml (100units/ml) SC SCH (07:52)
[2025-07-14 08:00] VITALS: PULSE 66; RESP 16
[2025-07-14] MEDS: cefTRIAXone 1GM/50ML D5W 50 ML IV SCH (10:04)
[2025-07-14] MEDS: ENOXAPARIN SOD 30 MG/0.3 ML SYRINGE SC SCH (10:05)
[2025-07-14] MEDS: PANTOPRAZOLE 40 MG/10 ML VIAL INJ IV SCH (10:05)
--- NOTE | 2025-07-14 12:18 | DVHPN2 ---
Subjective Patient doing well,. Seen at bedside today. Reviewed: Care Plan Changes from previous H/P or p: No Changes General: Per HPI Eyes: No Pain, No Vision change, No Conjunctivae inflammation, No Eyelid inflammation, No Other, No Redness Cardiovascular: No Chest Pain, No Palpitations, No Orthopnea, No Paroxysmal Noc. Dyspnea, No Edema, No Lt Headedness, No Other Respiratory: No Cough, No Dry, No Shortness of breath, No SOB with excertion, No Wheezing, No Hemoptysis, No Pleuritic Pain, No Sputum, No Other Gastrointestinal: No Nausea, No Vomiting; Abdominal Pain (Left flank); No Diarrhea, No Constipation, No Melena, No Hematochezia, No Other Genitourinary: No Dysuria, No Frequency, No Incontinence, No Hematuria, No Retention, No Other Musculoskeletal: No other, No neck pain, No shoulder pain, No arm pain, No back pain, No hand pain, No leg pain, No foot pain Skin: No Rash, No Lesions, No Jaundice, No Bruising, No Other Objective Vitals Vital Signs Date Time Temp Pulse Resp B/P (MAP) Pulse Ox O2 Delivery O2 Flow Rate FiO2 07/14/25 08:00 16 Room Air* 0 21 07/14/25 06:28 70 99 07/14/25 05:00 97.6 155/40 (78) 97.6 Intake/Output Intake and Output 07/14/25 07:00 Intake Total 100 ml Balance 100 ml Intake IV Total 100 ml Exam GEN: Healthy appearing, well-developed, NAD. HEENT: NC/AT; MMM. CV: RRR, no m/r/g. LUNGS: CTAB, no w/r/c. ABD: Soft, NT/ND, NBS, no masses or organomegaly. EXT: skin Warm, well perfused. no rashes. No clubbing, cyanosis, or edema. NEURO: Ambulating with no limitations. No focal deficits. Medications Current Medications Medications Dose Ordered Sig/Amisha Route Start Time Stop Time Status Last Admin Dose Admin Acetaminophen 650 mg Q6HP PRN PO 07/13/25 22:15 07/14/25 00:57 650 MG Enoxaparin Sodium 30 mg DAILY SC 07/14/25 10:00 07/14/25 10:05 30 MG Pantoprazole Sodium 40 mg DAILY IV 07/14/25 10:00 07/14/25 10:05 40 MG Ceftriaxone Sodium 50 ml @ 100 mls/hr DAILY IV 07/14/25 10:00 07/14/25 10:04 100 MLS/HR Insulin Glargine 10 units QAM SC 07/14/25 07:00 07/14/25 07:52 10 UNITS Diagnostic Test (Pha) 1 strip Q6HR 07/14/25 00:00 07/14/25 12:08 1 STRIP Insulin Human Regular Q6HR SC 07/14/25 00:00 07/14/25 12:09 6 UNITS Dextrose 50 ml UD PRN IV 07/13/25 23:30 Oseltamivir Phosphate 75 mg Q12HR PO 07/14/25 02:30 07/19/25 02:29 07/14/25 10:04 75 MG Hydroxyzine Pamoate 50 mg QID PRN PO 07/14/25 12:15 UNV Laboratory Results Laboratory Tests 07/14/25 04:40 Chemistry Test 07/13/25 15:51 07/14/25 04:40 Albumin 4.0 g/dL (3.2-4.8) Calcium Level 9.3 mg/dL (8.7-10.4) 9.3 mg/dL (8.7-10.4) Total Protein 7.6 g/dL (5.7-8.2) Lipid panel Test 07/13/25 15:51 Lipase 33 U/L (12-53) Cardiac Markers Test 07/13/25 15:51 B-Type Natriuretic Peptide 288.09 pg/mL (0-100) LFT Test 07/13/25 15:51 Alanine Aminotransferase (ALT) < 9 U/L (7-40) Alkaline Phosphatase 160 U/L (46-116) H Aspartate Amino Transferase (AST) 15 U/L (13-40) Total Bilirubin 0.3 mg/dL (0.2-1.0) HgA1c, TSH Test 07/13/25 15:51 Hemoglobin A1c 9.5 % A1C (<5.7) H Urinalysis Test 07/13/25 18:55 Urine Color Dark-brown (Yellow) Urine Clarity Ex.turbid (Clear) Urine pH 5.5 (5.0-9.0) Urine Specific [place] 1.012 (1.001-1.035) Urine Protein 2+ (Negative) H Urine Ketones 1+ (Negative) H Urine Blood 2+ /uL (Negative) H Urine Nitrite Negative (Negative) Urine Bilirubin Negative (Negative) Urine Urobilinogen 2 mg/dL (Negative) H Urine Leukocyte Esterase 3+ /uL (Negative) Urine RBC 18 /hpf (0 - 4) Urine WBC Clumps Present /hpf (None Seen) Urine Microscopic WBC 5918 /HPF (0-5) H Urine Squamous Epithelial Cells Few /hpf (<5) Urine Bacteria None seen /hpf (None Seen) Urine Glucose 2+ mg/dL (Normal) H Microbiology Microbiology Date/Time Source Procedure Growth Status 07/13/25 18:55 Urine - [place] Urine Culture - Preliminary Resulted Labs and/or images reviewed: Labs reviewed by me, Image(s) reviewed by me Assessment/Plan Assessment/Plan Luz Elena Patel is a 79 year old female, with past medical history of dementia, hypertension, hyperlipidemia and DM type 2. The patient was brought to the ED via EMS. The family reported to EMS team that they noticed the patient with altered mental status from baseline, lethargic and elevated blood pressure. On the ED the UA is positive, WBC: 11.2 X10e3/ul, and hyperglycemic 248mg/dl. The patient is a confused at the moment, oriented only in person,she is a poor historian. We will contact the family to obtain further details. At the moment vital signs are within normal limits, patient is not in distress. The patient will be admitted for further evaluation and management. Cardiovascular: HTN, hyperipidemia Sepsis due to UTI Acute complicated UTI Viral Influenza infection Leukocytosis Neutrophilia Tachypnea Acute toxic metabolic encephalopathy, due to above YVONNE due to VMN Nonobstructive nephrolithiasis left Plan: Ceftriaxone Lantus 10 units q.a.m. Moderate sliding scale q.6 DVT Lovenox Protonix Med surge Full code Plan discussed with: Patient My Orders Orders - GABBY MCNEILL MD Procedure Category Date Status Time Hydroxyzine Oral PHA 07/14/25 Logged (Vistaril Oral) 12:15 Date of Service: Jul 14, 2025 Billing Provider: GABBY MCNEILL MD Common Visit Codes: [id number] INP/OBS CARE(HIGH) GABBY MCNEILL MD Jul 14, 2025 12:18
[2025-07-14 13:00] VITALS: BP 142/65; PULSE 65; RESP 19; O2SAT 97
[2025-07-14] MEDS ORDERED: ATOR20TA50 PO (13:00)
[2025-07-14] MEDS ORDERED: FINE10TA PO (13:00)
[2025-07-14] MEDS ORDERED: OXYB3.9D TD (13:00)
[2025-07-14] MEDS ORDERED: ASPI1TAB20 PO (13:00)
[2025-07-14] MEDS: hydrOXYzine 25 MG TAB or CAP PO PRN (14:14)
[2025-07-14 17:00] VITALS: BP 174/74; PULSE 87; RESP 19; TEMP 97.2; O2SAT 94
[2025-07-14] MEDS: ALPRAZolam 0.25 MG TAB PO PRN (18:03)
[2025-07-14 20:00] VITALS: RESP 17
[2025-07-14 21:00] VITALS: RESP 18; TEMP 97.4
[2025-07-15] VITALS (7 sets, daily range): BP systolic 133–171; BP diastolic 43–57; PULSE 66–78; RESP 16–24; TEMP 96.7–97.7; O2SAT 95–97
[2025-07-15] MEDS: hydrALAZINE HCL 20 MG/ML VL IV PRN (05:00)
[2025-07-15 07:24] LABS: Hematocrit 35.0 % (36.0-46.0); Hemoglobin 11.9 g/dL (12.2-16.2); Mean Corpuscular Hemoglobin 27.7 pg (28.0-32.0); Mean Corpuscular Volume 81.4 fL (80.0-100.0); Nucleated Red Blood Cells % 0.0 %
[2025-07-15 07:46] LABS: Albumin 4.0 g/dL (3.2-4.8); Anion Gap 12 (5-15); BUN/Creatinine Ratio 11.2 (10.0-20.0); Bilirubin, Total 0.4 mg/dL (0.2-1.0); Blood Urea Nitrogen 11 mg/dL (9-23); Calcium 9.5 mg/dL (8.7-10.4); Carbon Dioxide 23 mmol/L (20-31); Chloride 101 mmol/L (98-107); Potassium 4.0 mmol/L (3.5-5.1); Sodium 136 mmol/L (136-145); Total Protein 7.6 g/dL (5.7-8.2)
[2025-07-15 07:48] LABS: Alanine Aminotransferase < 9 U/L (7-40); Alkaline Phosphatase 153 U/L (46-116); Glucose 165 mg/dL (74-106)
[2025-07-15] MEDS: OSELTAMIVIR 30 MG CAP PO SCH (10:11)
--- NOTE | 2025-07-15 13:29 | DVHPN2 ---
Subjective Patient doing well,. Seen at bedside today. Reviewed: Care Plan Changes from previous H/P or p: No Changes General: Per HPI Eyes: No Pain, No Vision change, No Conjunctivae inflammation, No Eyelid inflammation, No Other, No Redness Cardiovascular: No Chest Pain, No Palpitations, No Orthopnea, No Paroxysmal Noc. Dyspnea, No Edema, No Lt Headedness, No Other Respiratory: No Cough, No Dry, No Shortness of breath, No SOB with excertion, No Wheezing, No Hemoptysis, No Pleuritic Pain, No Sputum, No Other Gastrointestinal: No Nausea, No Vomiting; Abdominal Pain (Left flank); No Diarrhea, No Constipation, No Melena, No Hematochezia, No Other Genitourinary: No Dysuria, No Frequency, No Incontinence, No Hematuria, No Retention, No Other Musculoskeletal: No other, No neck pain, No shoulder pain, No arm pain, No back pain, No hand pain, No leg pain, No foot pain Skin: No Rash, No Lesions, No Jaundice, No Bruising, No Other Objective Vitals Vital Signs Date Time Temp Pulse Resp B/P (MAP) Pulse Ox O2 Delivery O2 Flow Rate FiO2 07/15/25 10:11 145/75 07/15/25 07:32 16 Room Air* 0 21 07/15/25 05:00 96.7 71 97 96.7 Intake/Output Intake and Output 07/15/25 07:00 Intake Total 170 ml Output Total 1750 ml Balance -1580 ml Intake Oral 120 ml IV Total 50 ml Output Urine Total 1750 ml Exam GEN: Healthy appearing, well-developed, NAD. HEENT: NC/AT; MMM. CV: RRR, no m/r/g. LUNGS: CTAB, no w/r/c. ABD: Soft, NT/ND, NBS, no masses or organomegaly. EXT: skin Warm, well perfused. no rashes. No clubbing, cyanosis, or edema. NEURO: Ambulating with no limitations. No focal deficits. Medications Current Medications Medications Dose Ordered Sig/Amisha Route Start Time Stop Time Status Last Admin Dose Admin Acetaminophen 650 mg Q6HP PRN PO 07/13/25 22:15 07/14/25 00:57 650 MG Enoxaparin Sodium 30 mg DAILY SC 07/14/25 10:00 07/15/25 10:10 30 MG Pantoprazole Sodium 40 mg DAILY IV 07/14/25 10:00 07/15/25 10:11 40 MG Ceftriaxone Sodium 50 ml @ 100 mls/hr DAILY IV 07/14/25 10:00 07/15/25 10:10 100 MLS/HR Insulin Glargine 10 units QAM SC 07/14/25 07:00 07/15/25 06:08 10 UNITS Diagnostic Test (Pha) 1 strip Q6HR 07/14/25 00:00 07/15/25 11:40 1 STRIP Insulin Human Regular Q6HR SC 07/14/25 00:00 07/15/25 11:41 6 UNITS Dextrose 50 ml UD PRN IV 07/13/25 23:30 Hydroxyzine Pamoate 50 mg QID PRN PO 07/14/25 12:15 Hold 07/14/25 14:14 50 MG Alprazolam 0.25 mg Q6HP PRN PO 07/14/25 17:00 07/15/25 11:43 0.25 MG Hydralazine HCl 10 mg Q6HP PRN IV 07/15/25 04:45 07/15/25 05:00 10 MG Amlodipine Besylate 10 mg DAILY PO 07/15/25 10:00 07/15/25 10:11 10 MG Oseltamivir Phosphate 30 mg BID PO 07/15/25 10:00 07/19/25 02:29 07/15/25 10:11 30 MG Laboratory Results Laboratory Tests 07/15/25 05:27 Chemistry Test 07/15/25 05:27 Albumin 4.0 g/dL (3.2-4.8) Calcium Level 9.5 mg/dL (8.7-10.4) Total Protein 7.6 g/dL (5.7-8.2) LFT Test 07/15/25 05:27 Alanine Aminotransferase (ALT) < 9 U/L (7-40) Alkaline Phosphatase 153 U/L (46-116) H Aspartate Amino Transferase (AST) 24 U/L (13-40) Total Bilirubin 0.4 mg/dL (0.2-1.0) Urinalysis Test 07/13/25 18:55 Urine Color Dark-brown (Yellow) Urine Clarity Ex.turbid (Clear) Urine pH 5.5 (5.0-9.0) Urine Specific [place] 1.012 (1.001-1.035) Urine Protein 2+ (Negative) H Urine Ketones 1+ (Negative) H Urine Blood 2+ /uL (Negative) H Urine Nitrite Negative (Negative) Urine Bilirubin Negative (Negative) Urine Urobilinogen 2 mg/dL (Negative) H Urine Leukocyte Esterase 3+ /uL (Negative) Urine RBC 18 /hpf (0 - 4) Urine WBC Clumps Present /hpf (None Seen) Urine Microscopic WBC 5918 /HPF (0-5) H Urine Squamous Epithelial Cells Few /hpf (<5) Urine Bacteria None seen /hpf (None Seen) Urine Glucose 2+ mg/dL (Normal) H Microbiology Microbiology Date/Time Source Procedure Growth Status 07/13/25 23:25 Blood Blood Culture - Preliminary NO GROWTH AFTER 24 HOURS OF INCUBATION. Resulted 07/13/25 18:55 Urine - [place] Urine Culture - Final Complete Labs and/or images reviewed: Labs reviewed by me, Image(s) reviewed by me Assessment/Plan Assessment/Plan Luz Elena Patel is a 79 year old female, with past medical history of dementia, hypertension, hyperlipidemia and DM type 2. The patient was brought to the ED via EMS. The family reported to EMS team that they noticed the patient with altered mental status from baseline, lethargic and elevated blood pressure. On the ED the UA is positive, WBC: 11.2 X10e3/ul, and hyperglycemic 248mg/dl. The patient is a confused at the moment, oriented only in person,she is a poor historian. We will contact the family to obtain further details. At the moment vital signs are within normal limits, patient is not in distress. The patient will be admitted for further evaluation and management. Cardiovascular: HTN, hyperipidemia 07/14: Patient A&O x1, no complaints, continuing IV antibiotics for urosepsis. 07/15: Patient is still A&O x1 at baseline, a grandson was here to visit her, he was unconcerning, likely this is pretty close to her baseline. Still waiting for cultures urine. Continuing IV antibiotics. Sepsis due to UTI Acute complicated UTI Viral Influenza infection Leukocytosis Neutrophilia Tachypnea Acute toxic metabolic encephalopathy, due to above YVONNE due to VMN Nonobstructive nephrolithiasis left Plan: Ceftriaxone Lantus 10 units q.a.m. Moderate sliding scale q.6 DVT Lovenox Protonix Med surge Full code Plan discussed with: Patient My Orders Orders - GABBY MCNEILL MD Procedure Category Date Status Time Alprazolam Tablet PHA 07/14/25 In Process (Xanax Tablet) 17:00 Date of Service: Jul 15, 2025 Billing Provider: GABBY MCNEILL MD Common Visit Codes: [id number] INP/OBS CARE(HIGH) GABBY MCNEILL MD Jul 15, 2025 13:29
[2025-07-15] MEDS: HYDROcodone-ACET 5/325MG TAB PO PRN (15:37)
[2025-07-16] VITALS (8 sets, daily range): BP systolic 112–153; BP diastolic 46–61; PULSE 64–89; RESP 16–19; TEMP 97.2–98.1; O2SAT 95–98
[2025-07-16 05:38] LABS: Hematocrit 37.9 % (36.0-46.0); Hemoglobin 12.3 g/dL (12.2-16.2); Mean Corpuscular Hemoglobin 27.6 pg (28.0-32.0); Mean Corpuscular Volume 85.2 fL (80.0-100.0); Nucleated Red Blood Cells % 0.2 %
--- NOTE | 2025-07-16 10:30 | ECG ---
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
--- NOTE | 2025-07-16 11:27 | DVHPN2 ---
Subjective Patient doing well,. Seen at bedside today. Reviewed: Care Plan Changes from previous H/P or p: No Changes General: Per HPI Eyes: No Pain, No Vision change, No Conjunctivae inflammation, No Eyelid inflammation, No Other, No Redness Cardiovascular: No Chest Pain, No Palpitations, No Orthopnea, No Paroxysmal Noc. Dyspnea, No Edema, No Lt Headedness, No Other Respiratory: No Cough, No Dry, No Shortness of breath, No SOB with excertion, No Wheezing, No Hemoptysis, No Pleuritic Pain, No Sputum, No Other Gastrointestinal: No Nausea, No Vomiting; Abdominal Pain (Left flank); No Diarrhea, No Constipation, No Melena, No Hematochezia, No Other Genitourinary: No Dysuria, No Frequency, No Incontinence, No Hematuria, No Retention, No Other Musculoskeletal: No other, No neck pain, No shoulder pain, No arm pain, No back pain, No hand pain, No leg pain, No foot pain Skin: No Rash, No Lesions, No Jaundice, No Bruising, No Other Objective Vitals Vital Signs Date Time Temp Pulse Resp B/P (MAP) Pulse Ox O2 Delivery O2 Flow Rate FiO2 07/16/25 09:00 98.0 71 17 150/61 (90) 98 98.0 07/16/25 08:00 Room Air* 0 21 Intake/Output Intake and Output 07/16/25 07:00 Intake Total 1630 ml Output Total 850 ml Balance 780 ml Intake Oral 1580 ml IV Total 50 ml Output Urine Total 850 ml Exam GEN: Healthy appearing, well-developed, NAD. HEENT: NC/AT; MMM. CV: RRR, no m/r/g. LUNGS: CTAB, no w/r/c. ABD: Soft, NT/ND, NBS, no masses or organomegaly. EXT: skin Warm, well perfused. no rashes. No clubbing, cyanosis, or edema. NEURO: Ambulating with no limitations. No focal deficits. Medications Current Medications Medications Dose Ordered Sig/Amisha Route Start Time Stop Time Status Last Admin Dose Admin Acetaminophen 650 mg Q6HP PRN PO 07/13/25 22:15 07/14/25 00:57 650 MG Enoxaparin Sodium 30 mg DAILY SC 07/14/25 10:00 07/15/25 10:10 30 MG Pantoprazole Sodium 40 mg DAILY IV 07/14/25 10:00 07/15/25 10:11 40 MG Ceftriaxone Sodium 50 ml @ 100 mls/hr DAILY IV 07/14/25 10:00 07/15/25 10:10 100 MLS/HR Insulin Glargine 10 units QAM SC 07/14/25 07:00 07/16/25 06:02 10 UNITS Diagnostic Test (Pha) 1 strip Q6HR 07/14/25 00:00 07/16/25 06:00 1 STRIP Insulin Human Regular Q6HR SC 07/14/25 00:00 07/16/25 06:01 6 UNITS Dextrose 50 ml UD PRN IV 07/13/25 23:30 Hydralazine HCl 10 mg Q6HP PRN IV 07/15/25 04:45 07/15/25 05:00 10 MG Amlodipine Besylate 10 mg DAILY PO 07/15/25 10:00 07/15/25 10:11 10 MG Oseltamivir Phosphate 30 mg BID PO 07/15/25 10:00 07/19/25 02:29 07/15/25 21:11 30 MG Acetaminophen/ Hydrocodone Bitart 1 tab Q6HPRN PRN PO 07/15/25 15:00 07/15/25 15:37 1 TAB Hydroxyzine Pamoate 50 mg Q6HP PRN PO 07/16/25 10:30 Enteral Nutritional Formula 240 ml TIDWM PO 07/16/25 12:00 Laboratory Results Laboratory Tests 07/15/25 05:27 07/16/25 04:38 Urinalysis Test 07/13/25 18:55 Urine Color Dark-brown (Yellow) Urine Clarity Ex.turbid (Clear) Urine pH 5.5 (5.0-9.0) Urine Specific [place] 1.012 (1.001-1.035) Urine Protein 2+ (Negative) H Urine Ketones 1+ (Negative) H Urine Blood 2+ /uL (Negative) H Urine Nitrite Negative (Negative) Urine Bilirubin Negative (Negative) Urine Urobilinogen 2 mg/dL (Negative) H Urine Leukocyte Esterase 3+ /uL (Negative) Urine RBC 18 /hpf (0 - 4) Urine WBC Clumps Present /hpf (None Seen) Urine Microscopic WBC 5918 /HPF (0-5) H Urine Squamous Epithelial Cells Few /hpf (<5) Urine Bacteria None seen /hpf (None Seen) Urine Glucose 2+ mg/dL (Normal) H Microbiology Microbiology Date/Time Source Procedure Growth Status 07/13/25 23:25 Blood Blood Culture - Preliminary NO GROWTH AFTER 48 HOURS OF INCUBATION. Resulted 07/13/25 18:55 Urine - [place] Urine Culture - Final Complete Labs and/or images reviewed: Labs reviewed by me, Image(s) reviewed by me Assessment/Plan Assessment/Plan Luz Elena Patel is a 79 year old female, with past medical history of dementia, hypertension, hyperlipidemia and DM type 2. The patient was brought to the ED via EMS. The family reported to EMS team that they noticed the patient with altered mental status from baseline, lethargic and elevated blood pressure. On the ED the UA is positive, WBC: 11.2 X10e3/ul, and hyperglycemic 248mg/dl. The patient is a confused at the moment, oriented only in person,she is a poor historian. We will contact the family to obtain further details. At the moment vital signs are within normal limits, patient is not in distress. The patient will be admitted for further evaluation and management. Cardiovascular: HTN, hyperipidemia 07/14: Patient A&O x1, no complaints, continuing IV antibiotics for urosepsis. 07/15: Patient is still A&O x1 at baseline, a grandson was here to visit her, he was unconcerning, likely this is pretty close to her baseline. Still waiting for cultures urine. Continuing IV antibiotics. 07/16: patient sleepy today. will stop xanax for anxiety, hydroxyzine instead. will add meal replacement ensure. continue iv antibiotics. diagnosis: Sepsis due to UTI Acute complicated UTI Viral Influenza infection Leukocytosis Neutrophilia Tachypnea Acute toxic metabolic encephalopathy, due to above YVONNE due to VMN Nonobstructive nephrolithiasis left Plan: Ceftriaxone Lantus 10 units q.a.m. Moderate sliding scale q.6 DVT Lovenox Protonix Med surge Full code Plan discussed with: Patient My Orders Orders - GABBY MCNEILL MD Procedure Category Date Status Time Hydrocodone-Acet PHA 07/15/25 In Process 5/325mg Tab ([place] 15:00 Hydroxyzine Oral PHA 07/16/25 In Process (Vistaril Oral) 10:30 Pt Request For Service PT 07/16/25 Logged 10:29 Nutritional PHA 07/16/25 In Process Supplements (Ensure 12:00 Date of Service: Jul 16, 2025 Billing Provider: GABBY MCNEILL MD Common Visit Codes: [id number] INP/OBS CARE(HIGH) GABBY MCNEILL MD Jul 16, 2025 11:27
[2025-07-16] MEDS: ENSURE CLEAR Mixed Berry 8oz Carton PO SCH (12:00)
[2025-07-16] MEDS: LACTULOSE 20Gm/30ML SOLN PO SCH (15:53)
[2025-07-16] MEDS: hydrOXYzine 25 MG TAB or CAP PO PRN (18:47)
[2025-07-17] VITALS (8 sets, daily range): BP systolic 136–157; BP diastolic 50–61; PULSE 64–80; RESP 16–19; TEMP 97–97.8; O2SAT 96–99
--- NOTE | 2025-07-17 10:12 | DVHPN2 ---
Subjective Patient doing well,. Seen at bedside today. Reviewed: Care Plan Changes from previous H/P or p: No Changes General: Per HPI Eyes: No Pain, No Vision change, No Conjunctivae inflammation, No Eyelid inflammation, No Other, No Redness Cardiovascular: No Chest Pain, No Palpitations, No Orthopnea, No Paroxysmal Noc. Dyspnea, No Edema, No Lt Headedness, No Other Respiratory: No Cough, No Dry, No Shortness of breath, No SOB with excertion, No Wheezing, No Hemoptysis, No Pleuritic Pain, No Sputum, No Other Gastrointestinal: No Nausea, No Vomiting; Abdominal Pain (Left flank); No Diarrhea, No Constipation, No Melena, No Hematochezia, No Other Genitourinary: No Dysuria, No Frequency, No Incontinence, No Hematuria, No Retention, No Other Musculoskeletal: No other, No neck pain, No shoulder pain, No arm pain, No back pain, No hand pain, No leg pain, No foot pain Skin: No Rash, No Lesions, No Jaundice, No Bruising, No Other Objective Vitals Vital Signs Date Time Temp Pulse Resp B/P (MAP) Pulse Ox O2 Delivery O2 Flow Rate FiO2 07/17/25 10:08 139/59 07/17/25 08:44 97.8 64 16 96 97.8 07/17/25 08:00 Room Air* 0 21 Intake/Output Intake and Output 07/17/25 07:00 Intake Total 738 ml Output Total 1450 ml Balance -712 ml Intake Oral 738 ml Output Urine Total 1450 ml Exam GEN: Healthy appearing, well-developed, NAD. HEENT: NC/AT; MMM. CV: RRR, no m/r/g. LUNGS: CTAB, no w/r/c. ABD: Soft, NT/ND, NBS, no masses or organomegaly. EXT: skin Warm, well perfused. no rashes. No clubbing, cyanosis, or edema. NEURO: Ambulating with no limitations. No focal deficits. Medications Current Medications Medications Dose Ordered Sig/Amisha Route Start Time Stop Time Status Last Admin Dose Admin Acetaminophen 650 mg Q6HP PRN PO 07/13/25 22:15 07/14/25 00:57 650 MG Enoxaparin Sodium 30 mg DAILY SC 07/14/25 10:00 07/17/25 10:07 30 MG Pantoprazole Sodium 40 mg DAILY IV 07/14/25 10:00 07/17/25 10:07 40 MG Ceftriaxone Sodium 50 ml @ 100 mls/hr DAILY IV 07/14/25 10:00 07/17/25 10:07 100 MLS/HR Insulin Glargine 10 units QAM SC 07/14/25 07:00 07/17/25 06:20 10 UNITS Diagnostic Test (Pha) 1 strip Q6HR 07/14/25 00:00 07/17/25 06:16 1 STRIP Insulin Human Regular Q6HR SC 07/14/25 00:00 07/17/25 06:20 3 UNITS Dextrose 50 ml UD PRN IV 07/13/25 23:30 Hydralazine HCl 10 mg Q6HP PRN IV 07/15/25 04:45 07/15/25 05:00 10 MG Amlodipine Besylate 10 mg DAILY PO 07/15/25 10:00 07/17/25 10:08 10 MG Oseltamivir Phosphate 30 mg BID PO 07/15/25 10:00 07/19/25 02:29 07/17/25 10:08 30 MG Acetaminophen/ Hydrocodone Bitart 1 tab Q6HPRN PRN PO 07/15/25 15:00 07/16/25 15:53 1 TAB Hydroxyzine Pamoate 50 mg Q6HP PRN PO 07/16/25 10:30 07/16/25 19:35 50 MG Enteral Nutritional Formula 240 ml TIDWM PO 07/16/25 12:00 07/17/25 08:00 240 ML Lactulose 10 ml BIDPRN PO 07/16/25 18:00 Hold 07/16/25 15:53 10 ML Laboratory Results Laboratory Tests 07/15/25 05:27 07/16/25 04:38 Urinalysis Test 07/13/25 18:55 Urine Color Dark-brown (Yellow) Urine Clarity Ex.turbid (Clear) Urine pH 5.5 (5.0-9.0) Urine Specific [place] 1.012 (1.001-1.035) Urine Protein 2+ (Negative) H Urine Ketones 1+ (Negative) H Urine Blood 2+ /uL (Negative) H Urine Nitrite Negative (Negative) Urine Bilirubin Negative (Negative) Urine Urobilinogen 2 mg/dL (Negative) H Urine Leukocyte Esterase 3+ /uL (Negative) Urine RBC 18 /hpf (0 - 4) Urine WBC Clumps Present /hpf (None Seen) Urine Microscopic WBC 5918 /HPF (0-5) H Urine Squamous Epithelial Cells Few /hpf (<5) Urine Bacteria None seen /hpf (None Seen) Urine Glucose 2+ mg/dL (Normal) H Microbiology Microbiology Date/Time Source Procedure Growth Status 07/13/25 23:25 Blood Blood Culture - Preliminary NO GROWTH AFTER 72 HOURS OF INCUBATION. Resulted 07/13/25 18:55 Urine - [place] Urine Culture - Final Complete Labs and/or images reviewed: Labs reviewed by me, Image(s) reviewed by me Assessment/Plan Assessment/Plan Luz Elena Patel is a 79 year old female, with past medical history of dementia, hypertension, hyperlipidemia and DM type 2. The patient was brought to the ED via EMS. The family reported to EMS team that they noticed the patient with altered mental status from baseline, lethargic and elevated blood pressure. On the ED the UA is positive, WBC: 11.2 X10e3/ul, and hyperglycemic 248mg/dl. The patient is a confused at the moment, oriented only in person,she is a poor historian. We will contact the family to obtain further details. At the moment vital signs are within normal limits, patient is not in distress. The patient will be admitted for further evaluation and management. Cardiovascular: HTN, hyperipidemia 07/14: Patient A&O x1, no complaints, continuing IV antibiotics for urosepsis. 07/15: Patient is still A&O x1 at baseline, a grandson was here to visit her, he was unconcerning, likely this is pretty close to her baseline. Still waiting for cultures urine. Continuing IV antibiotics. 07/16: patient sleepy today. will stop xanax for anxiety, hydroxyzine instead. will add meal replacement ensure. continue iv antibiotics. 07/17: Patient to get PT eval today. Continuing IV antibiotics. If stable will likely be DC tomorrow. Unable to establish contact with any family to establish baseline function. diagnosis: Sepsis due to UTI Acute complicated UTI Viral Influenza infection Leukocytosis Neutrophilia Tachypnea Acute toxic metabolic encephalopathy, due to above YVONNE due to VMN Nonobstructive nephrolithiasis left Plan: Ceftriaxone Lantus 10 units q.a.m. Moderate sliding scale q.6 DVT Lovenox Protonix Med surge Full code Plan discussed with: Patient My Orders Orders - GABBY MCNEILL MD Procedure Category Date Status Time Hydroxyzine Oral PHA 07/16/25 In Process (Vistaril Oral) 10:30 Pt Request For Service PT 07/16/25 Logged 10:29 Nutritional PHA 07/16/25 In Process Supplements (Ensure 12:00 Lactulose Oral PHA 07/16/25 In Process 18:00 Complete Blood Count LAB 07/17/25 Logged 09:30 Date of Service: Jul 17, 2025 Billing Provider: GABBY MCNEILL MD Common Visit Codes: [id number] INP/OBS CARE(HIGH) GABBY MCNEILL MD Jul 17, 2025 10:12
[2025-07-17 10:16] LABS: Hematocrit 36.7 % (36.0-46.0); Hemoglobin 12.1 g/dL (12.2-16.2); Mean Corpuscular Hemoglobin 27.4 pg (28.0-32.0); Mean Corpuscular Volume 83.6 fL (80.0-100.0); Nucleated Red Blood Cells % 0.1 %
[2025-07-18] VITALS (8 sets, daily range): BP systolic 117–171; BP diastolic 50–72; PULSE 60–78; RESP 16–24; TEMP 97.1–98.5; O2SAT 62–99
--- NOTE | 2025-07-18 10:27 | DVHPN2 ---
Subjective Patient doing well,. Seen at bedside today. Reviewed: Care Plan Changes from previous H/P or p: No Changes General: Per HPI Eyes: No Pain, No Vision change, No Conjunctivae inflammation, No Eyelid inflammation, No Other, No Redness Cardiovascular: No Chest Pain, No Palpitations, No Orthopnea, No Paroxysmal Noc. Dyspnea, No Edema, No Lt Headedness, No Other Respiratory: No Cough, No Dry, No Shortness of breath, No SOB with excertion, No Wheezing, No Hemoptysis, No Pleuritic Pain, No Sputum, No Other Gastrointestinal: No Nausea, No Vomiting; Abdominal Pain (Left flank); No Diarrhea, No Constipation, No Melena, No Hematochezia, No Other Genitourinary: No Dysuria, No Frequency, No Incontinence, No Hematuria, No Retention, No Other Musculoskeletal: No other, No neck pain, No shoulder pain, No arm pain, No back pain, No hand pain, No leg pain, No foot pain Skin: No Rash, No Lesions, No Jaundice, No Bruising, No Other Objective Vitals Vital Signs Date Time Temp Pulse Resp B/P (MAP) Pulse Ox O2 Delivery O2 Flow Rate FiO2 07/18/25 10:09 142/50 07/18/25 09:00 98.1 64 20 98 98.1 07/17/25 20:00 Room Air* 0 21 Intake/Output Intake and Output 07/18/25 07:00 Intake Total 1000 ml Output Total 1300 ml Balance -300 ml Intake Oral 1000 ml Output Urine Total 1300 ml Exam GEN: Healthy appearing, well-developed, NAD. HEENT: NC/AT; MMM. CV: RRR, no m/r/g. LUNGS: CTAB, no w/r/c. ABD: Soft, NT/ND, NBS, no masses or organomegaly. EXT: skin Warm, well perfused. no rashes. No clubbing, cyanosis, or edema. NEURO: Ambulating with no limitations. No focal deficits. Medications Current Medications Medications Dose Ordered Sig/Amisha Route Start Time Stop Time Status Last Admin Dose Admin Acetaminophen 650 mg Q6HP PRN PO 07/13/25 22:15 07/14/25 00:57 650 MG Enoxaparin Sodium 30 mg DAILY SC 07/14/25 10:00 07/18/25 10:08 30 MG Pantoprazole Sodium 40 mg DAILY IV 07/14/25 10:00 07/18/25 10:07 40 MG Ceftriaxone Sodium 50 ml @ 100 mls/hr DAILY IV 07/14/25 10:00 07/18/25 10:08 100 MLS/HR Insulin Glargine 10 units QAM SC 07/14/25 07:00 07/18/25 06:02 10 UNITS Diagnostic Test (Pha) 1 strip Q6HR 07/14/25 00:00 07/18/25 06:02 1 STRIP Insulin Human Regular Q6HR SC 07/14/25 00:00 07/18/25 06:03 3 UNITS Dextrose 50 ml UD PRN IV 07/13/25 23:30 Hydralazine HCl 10 mg Q6HP PRN IV 07/15/25 04:45 07/15/25 05:00 10 MG Amlodipine Besylate 10 mg DAILY PO 07/15/25 10:00 07/18/25 10:09 10 MG Oseltamivir Phosphate 30 mg BID PO 07/15/25 10:00 07/19/25 02:29 07/18/25 10:08 30 MG Acetaminophen/ Hydrocodone Bitart 1 tab Q6HPRN PRN PO 07/15/25 15:00 07/17/25 21:18 1 TAB Hydroxyzine Pamoate 50 mg Q6HP PRN PO 07/16/25 10:30 07/17/25 17:28 50 MG Enteral Nutritional Formula 240 ml TIDWM PO 07/16/25 12:00 07/17/25 18:00 240 ML Lactulose 10 ml BID PO 07/18/25 10:09 Laboratory Results Laboratory Tests 07/15/25 05:27 07/17/25 09:57 Urinalysis Test 07/13/25 18:55 Urine Color Dark-brown (Yellow) Urine Clarity Ex.turbid (Clear) Urine pH 5.5 (5.0-9.0) Urine Specific [place] 1.012 (1.001-1.035) Urine Protein 2+ (Negative) H Urine Ketones 1+ (Negative) H Urine Blood 2+ /uL (Negative) H Urine Nitrite Negative (Negative) Urine Bilirubin Negative (Negative) Urine Urobilinogen 2 mg/dL (Negative) H Urine Leukocyte Esterase 3+ /uL (Negative) Urine RBC 18 /hpf (0 - 4) Urine WBC Clumps Present /hpf (None Seen) Urine Microscopic WBC 5918 /HPF (0-5) H Urine Squamous Epithelial Cells Few /hpf (<5) Urine Bacteria None seen /hpf (None Seen) Urine Glucose 2+ mg/dL (Normal) H Microbiology Microbiology Date/Time Source Procedure Growth Status 07/13/25 23:25 Blood Blood Culture - Preliminary NO GROWTH AFTER 72 HOURS OF INCUBATION. Resulted 07/13/25 18:55 Urine - [place] Urine Culture - Final Complete Labs and/or images reviewed: Labs reviewed by me, Image(s) reviewed by me Assessment/Plan Assessment/Plan Luz Elena Patel is a 79 year old female, with past medical history of dementia, hypertension, hyperlipidemia and DM type 2. The patient was brought to the ED via EMS. The family reported to EMS team that they noticed the patient with altered mental status from baseline, lethargic and elevated blood pressure. On the ED the UA is positive, WBC: 11.2 X10e3/ul, and hyperglycemic 248mg/dl. The patient is a confused at the moment, oriented only in person,she is a poor historian. We will contact the family to obtain further details. At the moment vital signs are within normal limits, patient is not in distress. The patient will be admitted for further evaluation and management. Cardiovascular: HTN, hyperipidemia 07/14: Patient A&O x1, no complaints, continuing IV antibiotics for urosepsis. 07/15: Patient is still A&O x1 at baseline, a grandson was here to visit her, he was unconcerning, likely this is pretty close to her baseline. Still waiting for cultures urine. Continuing IV antibiotics. 07/16: patient sleepy today. will stop xanax for anxiety, hydroxyzine instead. will add meal replacement ensure. continue iv antibiotics. 07/17: Patient to get PT eval today. Continuing IV antibiotics. If stable will likely be DC tomorrow. Unable to establish contact with any family to establish baseline function. 07/18: Plan was to discharge patient today with antibiotics but she has not been working with PT. need to work with PT, will remove zuniga. per grandson, who may have care-taker fatigue, patient walks with a walker at home. Son comes daily morning, but otherwise does not seem to be overly concerned with her baseline mentation as patient has advanced Alzheimer's.. Patient used to have home health for wound care for back bed sores but they improved and home health had discharged the patient. Patient may benefit this time again with home health for med management and possibly home PT, pending PT eval today. likely dc tomorrow diagnosis: Sepsis due to UTI Acute complicated UTI Viral Influenza infection Leukocytosis Neutrophilia Tachypnea Acute toxic metabolic encephalopathy, due to above YVONNE due to VMN Nonobstructive nephrolithiasis left Plan: Ceftriaxone Lantus 10 units q.a.m. Moderate sliding scale q.6 DVT Lovenox Protonix Med surge Full code Plan discussed with: Patient My Orders Orders - GABBY MCNEILL MD Procedure Category Date Status Time Lactulose Oral PHA 07/18/25 In Process 10:09 Date of Service: Jul 18, 2025 Billing Provider: GABBY MCNEILL MD Common Visit Codes: [id number] INP/OBS CARE(HIGH) GABBY MCNEILL MD Jul 18, 2025 10:27
[2025-07-18] MEDS: LACTULOSE 20Gm/30ML SOLN PO SCH (11:57)
[2025-07-19] VITALS (8 sets, daily range): BP systolic 120–158; BP diastolic 65–78; PULSE 63–79; RESP 16–20; TEMP 97.3–98; O2SAT 95–100
[2025-07-19 11:46] LABS: Base Excess -1.2 mmol/L (-2.0-3.0)
--- NOTE | 2025-07-19 11:52 | DVH ---
CHEST RADIOGRAPH Indication: diminished lung sound Technique: XY CHEST PORTABLE COMPARISON: None FINDINGS: Left chest dual lead cardiac pacing device. The cardiac silhouette is enlarged. The lungs demonstrate bilateral patchy airspace opacities. The pu lmonary vasculature is prominent. Small bilateral pleural effusions. There is no pneumothorax. IMPRESSION: Cardiomegaly with pulmonary vascular congestion and bilateral patchy airspace opacities. Small bilateral pleural effusions
[2025-07-19 12:46] LABS: Nucleated Red Blood Cells % 0.0 %
[2025-07-19 12:48] LABS: Hematocrit 39.6 % (36.0-46.0); Hemoglobin 12.9 g/dL (12.2-16.2); Mean Corpuscular Hemoglobin 26.5 pg (28.0-32.0); Mean Corpuscular Volume 81.0 fL (80.0-100.0)
[2025-07-19 12:59] LABS: Anion Gap 9 (5-15); BUN/Creatinine Ratio 8.9 (10.0-20.0); Blood Urea Nitrogen 9 mg/dL (9-23); Calcium 9.6 mg/dL (8.7-10.4); Carbon Dioxide 25 mmol/L (20-31); Chloride 100 mmol/L (98-107); Potassium 3.8 mmol/L (3.5-5.1); Total Protein 8.0 g/dL (5.7-8.2)
[2025-07-19 13:00] LABS: Alanine Aminotransferase < 9 U/L (7-40); Albumin 4.0 g/dL (3.2-4.8); Alkaline Phosphatase 138 U/L (46-116); Bilirubin, Total 0.3 mg/dL (0.2-1.0); Glucose 192 mg/dL (74-106); Sodium 134 mmol/L (136-145)
--- NOTE | 2025-07-19 14:02 | ECG ---
[facility] Test Date: 2025-07-13 Test Time: 16:05:55 Pat Name: RAULITO SALAZAR Department: ER Room: 0202 A Gender: F Bulb Sorter: ADAM : 1945 Requested By: LATA JOHNSON Order Number: [id number] Reading MD: Measurements Intervals [place] Rate: 60 P: 2 OK: 165 QRS: -22 QRSD: 102 T: 24 QT: 463 QTc: 463 Interpretive Statements Sinus rhythm Abnormal R-wave progression, late transition Left ventricular hypertrophy Please click the below link to view image of tracing.
--- NOTE | 2025-07-19 14:02 | ECG ---
[facility] Test Date: 2025-07-13 Test Time: 15:00:07 Pat Name: RAULITO SALAZAR Department: ED Room: 0202 A Gender: F Investor Relations Director: GIUSEPPE : 1945 Requested By: LATA JOHNSON Order Number: [id number] Reading MD: Measurements Intervals [place] Rate: 60 P: 102 MS: 149 QRS: -16 QRSD: 103 T: -7 QT: 461 QTc: 461 Interpretive Statements Atrial-paced complexes Low voltage, precordial leads Probable left ventricular hypertrophy Borderline T abnormalities, inferior leads Please click the below link to view image of tracing.
--- NOTE | 2025-07-19 15:04 | DVHPN2 ---
Subjective Patient doing well,. Seen at bedside today. Reviewed: Care Plan Changes from previous H/P or p: No Changes General: Per HPI Eyes: No Pain, No Vision change, No Conjunctivae inflammation, No Eyelid inflammation, No Other, No Redness Cardiovascular: No Chest Pain, No Palpitations, No Orthopnea, No Paroxysmal Noc. Dyspnea, No Edema, No Lt Headedness, No Other Respiratory: No Cough, No Dry, No Shortness of breath, No SOB with excertion, No Wheezing, No Hemoptysis, No Pleuritic Pain, No Sputum, No Other Gastrointestinal: No Nausea, No Vomiting; Abdominal Pain (Left flank); No Diarrhea, No Constipation, No Melena, No Hematochezia, No Other Genitourinary: No Dysuria, No Frequency, No Incontinence, No Hematuria, No Retention, No Other Musculoskeletal: No other, No neck pain, No shoulder pain, No arm pain, No back pain, No hand pain, No leg pain, No foot pain Skin: No Rash, No Lesions, No Jaundice, No Bruising, No Other Objective Vitals Vital Signs Date Time Temp Pulse Resp B/P (MAP) Pulse Ox O2 Delivery O2 Flow Rate FiO2 07/19/25 09:48 137/78 07/19/25 09:00 97.3 65 16 100 97.3 07/19/25 08:00 Room Air* 0 21 Intake/Output Intake and Output 07/19/25 06:59 Intake Total 900 ml Output Total 350 ml Balance 550 ml Intake Oral 850 ml IV Total 50 ml Output Urine Total 350 ml # Voids 2 # Bowel Movements 1 Exam GEN: Healthy appearing, well-developed, NAD. HEENT: NC/AT; MMM. CV: RRR, no m/r/g. LUNGS: CTAB, no w/r/c. ABD: Soft, NT/ND, NBS, no masses or organomegaly. EXT: skin Warm, well perfused. no rashes. No clubbing, cyanosis, or edema. NEURO: Ambulating with no limitations. No focal deficits. Medications Current Medications Medications Dose Ordered Sig/Amisha Route Start Time Stop Time Status Last Admin Dose Admin Acetaminophen 650 mg Q6HP PRN PO 07/13/25 22:15 07/18/25 12:26 650 MG Enoxaparin Sodium 30 mg DAILY SC 07/14/25 10:00 07/19/25 10:00 30 MG Pantoprazole Sodium 40 mg DAILY IV 07/14/25 10:00 07/19/25 09:47 40 MG Insulin Glargine 10 units QAM SC 07/14/25 07:00 07/19/25 05:49 10 UNITS Diagnostic Test (Pha) 1 strip Q6HR 07/14/25 00:00 07/19/25 05:41 1 STRIP Insulin Human Regular Q6HR SC 07/14/25 00:00 07/19/25 05:50 6 UNITS Dextrose 50 ml UD PRN IV 07/13/25 23:30 Hydralazine HCl 10 mg Q6HP PRN IV 07/15/25 04:45 07/15/25 05:00 10 MG Amlodipine Besylate 10 mg DAILY PO 07/15/25 10:00 07/19/25 09:48 10 MG Acetaminophen/ Hydrocodone Bitart 1 tab Q6HPRN PRN PO 07/15/25 15:00 07/17/25 21:18 1 TAB Hydroxyzine Pamoate 50 mg Q6HP PRN PO 07/16/25 10:30 07/18/25 13:43 50 MG Enteral Nutritional Formula 240 ml TIDWM PO 07/16/25 12:00 07/19/25 08:00 240 ML Lactulose 10 ml BID PO 07/18/25 10:09 07/19/25 09:51 10 ML Nitrofurantoin Macrocrystals 100 mg BID PO 07/18/25 22:00 07/19/25 09:47 100 MG Laboratory Results Laboratory Tests 07/19/25 11:53 Chemistry Test 07/19/25 11:53 Albumin 4.0 g/dL (3.2-4.8) Calcium Level 9.6 mg/dL (8.7-10.4) Total Protein 8.0 g/dL (5.7-8.2) LFT Test 07/19/25 11:53 Alanine Aminotransferase (ALT) < 9 U/L (7-40) Alkaline Phosphatase 138 U/L (46-116) H Aspartate Amino Transferase (AST) 18 U/L (13-40) Total Bilirubin 0.3 mg/dL (0.2-1.0) Urinalysis Test 07/13/25 18:55 Urine Color Dark-brown (Yellow) Urine Clarity Ex.turbid (Clear) Urine pH 5.5 (5.0-9.0) Urine Specific [place] 1.012 (1.001-1.035) Urine Protein 2+ (Negative) H Urine Ketones 1+ (Negative) H Urine Blood 2+ /uL (Negative) H Urine Nitrite Negative (Negative) Urine Bilirubin Negative (Negative) Urine Urobilinogen 2 mg/dL (Negative) H Urine Leukocyte Esterase 3+ /uL (Negative) Urine RBC 18 /hpf (0 - 4) Urine WBC Clumps Present /hpf (None Seen) Urine Microscopic WBC 5918 /HPF (0-5) H Urine Squamous Epithelial Cells Few /hpf (<5) Urine Bacteria None seen /hpf (None Seen) Urine Glucose 2+ mg/dL (Normal) H Blood Gas Results Test 07/19/25 11:29 Arterial Blood pH 7.429 (7.350-7.450) FiO2 % 21.0 Microbiology Microbiology Date/Time Source Procedure Growth Status 07/13/25 23:25 Blood Blood Culture - Final NO GROWTH AFTER 5 DAYS OF INCUBATION. Complete 07/13/25 18:55 Urine - [place] Urine Culture - Final Complete Labs and/or images reviewed: Labs reviewed by me, Image(s) reviewed by me Assessment/Plan Assessment/Plan Ms. Magy Morgan Luz Elena is a 79 year old female, with past medical history of dementia, hypertension, hyperlipidemia and DM type 2. The patient was brought to the ED via EMS. The family reported to EMS team that they noticed the patient with altered mental status from baseline, lethargic and elevated blood pressure. On the ED the UA is positive, WBC: 11.2 X10e3/ul, and hyperglycemic 248mg/dl. The patient is a confused at the moment, oriented only in person,she is a poor historian. We will contact the family to obtain further details. At the moment vital signs are within normal limits, patient is not in distress. The patient will be admitted for further evaluation and management. Cardiovascular: HTN, hyperipidemia 07/14: Patient A&O x1, no complaints, continuing IV antibiotics for urosepsis. 07/15: Patient is still A&O x1 at baseline, a grandson was here to visit her, he was unconcerning, likely this is pretty close to her baseline. Still waiting for cultures urine. Continuing IV antibiotics. 07/16: patient sleepy today. will stop xanax for anxiety, hydroxyzine instead. will add meal replacement ensure. continue iv antibiotics. 07/17: Patient to get PT eval today. Continuing IV antibiotics. If stable will likely be DC tomorrow. Unable to establish contact with any family to establish baseline function. 07/18: Plan was to discharge patient today with antibiotics but she has not been working with PT. need to work with PT, will remove zuniga. per grandson, who may have care-taker fatigue, patient walks with a walker at home. Son comes daily morning, but otherwise does not seem to be overly concerned with her baseline mentation as patient has advanced Alzheimer's.. Patient used to have home health for wound care for back bed sores but they improved and home health had discharged the patient. Patient may benefit this time again with home health for med management and possibly home PT, pending PT eval today. likely dc tomorrow 07/19: Patient is seen at bedside today, she is very somnolent. We got labs which all seem unconcerning, patient had decreased breath sounds right side x- ray also unconcerning. ABG taken for concern for hypercarbia, which was also unconcerning. I do not see any focal neurological deficits. No sedatives given. We will monitor 1 more day, SNF PT rehab as recommended by PT ashley, order has been placed for social. If patient continues to improve we will likely DC tomorrow. diagnosis: Sepsis due to UTI Acute complicated UTI Viral Influenza infection Leukocytosis Neutrophilia Tachypnea Acute toxic metabolic encephalopathy, due to above YVONNE due to VMN Nonobstructive nephrolithiasis left Plan: Ceftriaxone Lantus 10 units q.a.m. Moderate sliding scale q.6 DVT Lovenox Protonix Med surge Full code Plan discussed with: Patient My Orders Orders - GABBY MCNEILL MD Procedure Category Date Status Time Nitrofurantoin PHA 07/18/25 In Process Capsule (Macrobid) 22:00 * Journalism Instructor CONS 07/19/25 Transmitted Consult Chest Portable XY 07/19/25 Resulted 11:05 Abg W/ Co-Ox RT 07/19/25 Logged 11:23 Date of Service: Jul 19, 2025 Billing Provider: GABBY MCNEILL MD Common Visit Codes: [id number] INP/OBS CARE(HIGH) GABBY MCNEILL MD Jul 19, 2025 15:04
[2025-07-20 01:00] VITALS: BP_SYST 0; BP_SYST 140; BP_DIAS 73; PULSE 60; RESP 22; TEMP 97.8; O2SAT 99
[2025-07-20 05:00] VITALS: BP_SYST 0; BP_SYST 148; BP_DIAS 79; PULSE 61; RESP 14; TEMP 98.3; O2SAT 98
[2025-07-20 08:00] VITALS: PULSE 76
[2025-07-20 09:02] LABS: Anion Gap 11 (5-15); Calcium 10.1 mg/dL (8.7-10.4); Carbon Dioxide 22 mmol/L (20-31); Chloride 99 mmol/L (98-107)
[2025-07-20 09:04] LABS: Sodium 132 mmol/L (136-145)
[2025-07-20 09:08] VITALS: BP 157/82; PULSE 67; RESP 20; TEMP 97.7; O2SAT 99
[2025-07-20 09:14] LABS: Glucose 164 mg/dL (74-106)
[2025-07-20 09:15] LABS: BUN/Creatinine Ratio 8.7 (10.0-20.0)
[2025-07-20 09:18] LABS: Blood Urea Nitrogen 9 mg/dL (9-23); Potassium 4.8 mmol/L (3.5-5.1)
--- NOTE | 2025-07-20 16:37 | DVHDS2 ---
Discharge Summary Date of Admission Jul 13, 2025 at 22:14 Date of Discharge: Jul 20, 2025 Labs/Diagnostic Data: Laboratory Results Test 07/20/25 11:54 07/20/25 10:43 07/20/25 04:43 07/19/25 11:53 POC Glucose 177 mg/dl (70-106) Ammonia 27 umol/L (11-32) Sodium Level 132 mmol/L (136-145) Potassium Level 4.8 mmol/L (3.5-5.1) Chloride Level 99 mmol/L (98-107) Carbon Dioxide Level 22 mmol/L (20-31) Anion Gap 11 (5-15) Blood Urea Nitrogen 9 mg/dL (9-23) Creatinine 1.03 mg/dL (0.550-1.02) Glomerular Filtration Rate Calc 55 mL/min (>90) BUN/Creatinine Ratio 8.7 (10.0-20.0) Serum Glucose 164 mg/dL (74-106) Calcium Level 10.1 mg/dL (8.7-10.4) Thyroid Stimulating Hormone (TSH) 4.06 uIU/mL (0.55-4.78) White Blood Count 11.8 10^3/uL (4.4-10.8) Red Blood Count 4.88 10^6/uL (4.0-5.20) Hemoglobin 12.9 g/dL (12.2-16.2) Hematocrit 39.6 % (36.0-46.0) Mean Corpuscular Volume 81.0 fL (80.0-100.0) Mean Corpuscular Hemoglobin 26.5 pg (28.0-32.0) Mean Corpuscular Hemoglobin Concent 32.7 g/dL (32.0-36.0) Red Cell Distribution Width 13.1 % (11.8-14.3) Platelet Count 427 10^3/uL (140-450) Mean Platelet Volume 8.5 fL (6.9-10.8) Neutrophils (%) (Auto) 75.3 % (37.0-80.0) Lymphocytes (%) (Auto) 14.0 % (10.0-50.0) Monocytes (%) (Auto) 7.0 % (0.0-12.0) Eosinophils (%) (Auto) 3.2 % (0.0-7.0) Basophils (%) (Auto) 0.5 % (0.0-2.0) Neutrophils # (Auto) 8.9 10 ^3/uL (1.6-8.6) Lymphocytes # (Auto) 1.6 10 ^3/uL (0.4-5.4) Monocytes # (Auto) 0.8 10 ^3/uL (0-1.3) Eosinophils # (Auto) 0.4 10 ^3/uL (0-0.8) Basophils # (Auto) 0.1 10 ^3/uL (0-0.2) Nucleated Red Blood Cells 0.0 % Total Bilirubin 0.3 mg/dL (0.2-1.0) Aspartate Amino Transferase (AST) 18 U/L (13-40) Alanine Aminotransferase (ALT) < 9 U/L (7-40) Alkaline Phosphatase 138 U/L (46-116) Total Protein 8.0 g/dL (5.7-8.2) Albumin 4.0 g/dL (3.2-4.8) Test 07/19/25 11:29 07/14/25 03:06 07/13/25 23:00 07/13/25 20:54 Blood Gas Specimen Type Arterial Blood Gas Sample Site Right radial Blood Gas Patient Temperature 37.0 Arterial Blood Date Drawn [id number] Arterial Blood pH 7.429 (7.350-7.450) Arterial Blood Partial Pressure CO2 34.8 mmHg (32.0-45.0) Arterial Blood Partial Pressure O2 73.7 mmHg (83.0-108.0) Arterial Blood HCO3 22.5 mmol/L (21.0-28.0) Arterial Blood Oxygen Saturation 93.7 % (94.0-98.0) Arterial Blood Base Excess -1.2 mmol/L (-2.0-3.0) Arterial Blood Oxyhemoglobin 92.9 % (94.0-98.0) Arterial Blood Carboxyhemoglobin 0.5 % (0.5-1.5) Arterial Blood Methemoglobin 0.4 % (0.0-1.5) Avel Test Yes Blood Gas Total Hemoglobin 13.70 g/dL (12.0-16.0) Blood Gas Modality Room air FiO2 % 21.0 Urine Opiates Screen Neg (NEGATIVE) Urine Fentanyl Screen Neg (NEGATIVE) Urine Barbiturates Screen Neg (NEGATIVE) Urine Phencyclidine Screen Neg (NEGATIVE) Urine Amphetamines Screen Neg (NEGATIVE) Urine Benzodiazepines Screen Neg (NEGATIVE) Urine Cocaine Screen Neg (NEGATIVE) Urine Cannabinoids Screen Neg (NEGATIVE) Influenza Type A Antigen Positive (Negative) Influenza Type B Antigen Positive (Negative) SARS-CoV-2 Antigen (Rapid) Negative (NEGATIVE) Troponin I High Sensitivity 3 ng/L (</=34) Test 07/13/25 18:55 07/13/25 15:51 Urine Color Dark-brown (Yellow) Urine Clarity Ex.turbid (Clear) Urine pH 5.5 (5.0-9.0) Urine Specific [place] 1.012 (1.001-1.035) Urine Protein 2+ (Negative) Urine Ketones 1+ (Negative) Urine Blood 2+ /uL (Negative) Urine Nitrite Negative (Negative) Urine Bilirubin Negative (Negative) Urine Urobilinogen 2 mg/dL (Negative) Urine Leukocyte Esterase 3+ /uL (Negative) Urine RBC 18 /hpf (0 - 4) Urine WBC Clumps Present /hpf (None Seen) Urine Microscopic WBC 5918 /HPF (0-5) Urine Squamous Epithelial Cells Few /hpf (<5) Urine Bacteria None seen /hpf (None Seen) Urine Glucose 2+ mg/dL (Normal) Hemoglobin A1c 9.5 % A1C (<5.7) Lactic Acid Level 1.6 mmol/L (0.4-2.0) B-Type Natriuretic Peptide 288.09 pg/mL (0-100) Lipase 33 U/L (12-53) Other Laboratory Tests 07/20/25 04:43 07/19/25 11:53 Brief Hx & Hospital Course: Luz Elena Patel is a 79 year old female, with past medical history of dementia, hypertension, hyperlipidemia and DM type 2. The patient was brought to the ED via EMS. The family reported to EMS team that they noticed the patient with altered mental status from baseline, lethargic and elevated blood pressure. On the ED the UA is positive, WBC: 11.2 X10e3/ul, and hyperglycemic 248mg/dl. The patient is a confused at the moment, oriented only in person,she is a poor historian. We will contact the family to obtain further details. At the moment vital signs are within normal limits, patient is not in distress. The patient will be admitted for further evaluation and management. Cardiovascular: HTN, hyperipidemia 07/14: Patient A&O x1, no complaints, continuing IV antibiotics for urosepsis. 07/15: Patient is still A&O x1 at baseline, a grandson was here to visit her, he was unconcerning, likely this is pretty close to her baseline. Still waiting for cultures urine. Continuing IV antibiotics. 07/16: patient sleepy today. will stop xanax for anxiety, hydroxyzine instead. will add meal replacement ensure. continue iv antibiotics. 07/17: Patient to get PT eval today. Continuing IV antibiotics. If stable will likely be DC tomorrow. Unable to establish contact with any family to establish baseline function. 07/18: Plan was to discharge patient today with antibiotics but she has not been working with PT. need to work with PT, will remove zuniga. per grandson, who may have care-taker fatigue, patient walks with a walker at home. Son comes daily morning, but otherwise does not seem to be overly concerned with her baseline mentation as patient has advanced Alzheimer's.. Patient used to have home health for wound care for back bed sores but they improved and home health had discharged the patient. Patient may benefit this time again with home health for med management and possibly home PT, pending PT eval today. likely dc tomorrow 07/19: Patient is seen at bedside today, she is very somnolent. We got labs which all seem unconcerning, patient had decreased breath sounds right side x- ray also unconcerning. ABG taken for concern for hypercarbia, which was also unconcerning. I do not see any focal neurological deficits. No sedatives given. We will monitor 1 more day, SNF PT rehab as recommended by PT ashley, order has been placed for social. If patient continues to improve we will likely DC tomorrow. 07/20: doing much better today, stable for discharge to SNF for PT. vidal at bedside and is in agreement, he is also the POA, he states patient is improved back to baseline. Stable for discharge as per plan below. diagnosis: Sepsis due to UTI Acute complicated UTI Viral Influenza infection, completed treatment course physical deconditioning Leukocytosis, resolved Neutrophilia, resolved Tachypnea, resolved Acute toxic metabolic encephalopathy, due to above, resolved back to baseline YVONNE due to VMN, resolved Nonobstructive nephrolithiasis left Alzheimer's dementia, advanced age HTN, hyperipidemia Discharge plan: - Transfer to SNF for physical therapy - soft mechanical diet - Continue nitrofurantoin 100 mg twice daily for 5 days, for urine infection - ambulation. work with PT, ambulation with assist until PT clears. - Continue other home medications. Condition at Discharge: Fair Final Diagnosis/Problems List Sepsis due to UTI Acute complicated UTI Viral Influenza infection, completed treatment course physical deconditioning Leukocytosis, resolved Neutrophilia, resolved Tachypnea, resolved Acute toxic metabolic encephalopathy, due to above, resolved back to baseline YVONNE due to VMN, resolved Nonobstructive nephrolithiasis left Alzheimer's dementia, advanced age HTN, hyperipidemia Discharge Disposition: [facility]-Way Facility Discharge Instruct/Medications Diet: See Comment Diet comment: soft mechanical diet Activity: See Comment Activity comment: ambulation. work with PT, ambulation with assist until PT clears. Follow Up/Referral: See below Medications: See below Scheduled Aspirin (Aspir-81), 1 TAB PO DAILY, (Reported) Atorvastatin Calcium (Atorvastatin Calcium), 1 TAB PO DAILY, (Reported) Cefdinir (Cefdinir), 1 CAP PO BID Dicyclomine HCl (Dicyclomine Hydrochloride), 1 TAB PO TID, (Reported) Gabapentin (Neurontin), 600 MG PO TID, (Reported) Levothyroxine Sodium (Levothyroxine Sodium), 25 MCG PO DAILY, (Reported) Simvastatin (Simvastatin), 40 MG PO DAILY, (Reported) [Lantus], 45 UNITS SUBCUT HS, (Reported) [Pantoprazole 40MG Tablets], 40 MG PO DAILY, (Reported) Miscellaneous Medications Finerenone (Kerendia), 10 MG PO, (Reported) Oxybutynin Base (Oxytrol), 5 MG TD, (Reported) [Humulog], (Reported) Discharge Statement: "Patient was advised to return to the ER or call 911 if any headaches, dizziness, shortness of breath, chest pain, abdominal pain, bleeding, fevers, or worsening of medical condition. Patient was counseled about treatment plan, medications, possible side effects, patientverbalized understanding. All questions were answered to the best of my ability. This discharge took greater then 30 minutes in planning, reviewing documentation, counseling the patient, and discussing with other team members." Date of Service: Jul 20, 2025 Billing Provider: GABBY MCNEILL MD Common Visit Codes: [id number] DISCH DAY >30min GABBY MCNEILL MD Jul 20, 2025 16:37
[2025-07-20 17:10] VITALS: BP 138/63; PULSE 60; RESP 20; TEMP 97.8; O2SAT 95
[2025-07-20 21:00] VITALS: BP 140/70; PULSE 64; RESP 17; TEMP 98; O2SAT 98
[2025-07-21] VITALS (8 sets, daily range): BP systolic 131–166; BP diastolic 64–81; PULSE 59–72; RESP 15–17; TEMP 97.6–98.1; O2SAT 96–99
[2025-07-21] MEDS ORDERED: NITR-52 PO (16:58)
--- NOTE | 2025-07-21 17:01 | DVHPN2 ---
Subjective Cross covering for [facility] today. Patient is clinically stable. Apparently she is supposed to be discharged to senior living facility yesterday however grandson and family members wanted her home therefore SNF discharge has been canceled. Patient already has a walker and a bedside commode at home. Reviewed: Care Plan Changes from previous H/P or p: No Changes General: Per HPI Eyes: No Pain, No Vision change, No Conjunctivae inflammation, No Eyelid inflammation, No Other, No Redness Cardiovascular: No Chest Pain, No Palpitations, No Orthopnea, No Paroxysmal Noc. Dyspnea, No Edema, No Lt Headedness, No Other Respiratory: No Cough, No Dry, No Shortness of breath, No SOB with excertion, No Wheezing, No Hemoptysis, No Pleuritic Pain, No Sputum, No Other Gastrointestinal: No Nausea, No Vomiting; Abdominal Pain (Left flank); No Diarrhea, No Constipation, No Melena, No Hematochezia, No Other Genitourinary: No Dysuria, No Frequency, No Incontinence, No Hematuria, No Retention, No Other Musculoskeletal: No other, No neck pain, No shoulder pain, No arm pain, No back pain, No hand pain, No leg pain, No foot pain Skin: No Rash, No Lesions, No Jaundice, No Bruising, No Other Objective Vitals Vital Signs Date Time Temp Pulse Resp B/P (MAP) Pulse Ox O2 Delivery O2 Flow Rate FiO2 07/21/25 16:38 97.9 61 16 140/71 (94) 98 97.9 07/21/25 08:00 Room Air* 0 21 Intake/Output Intake and Output 07/21/25 07:00 Intake Total 850 ml Balance 850 ml Intake Oral 850 ml # Voids 6 # Bowel Movements 4 Exam Alert and awake knows her name. Appears to be baseline mentation given her dementia. Heart regular rate and rhythm S1 plus S2. Lungs without rales wheezes. Abdomen soft positive bowel sounds nontender. Extremities no edema. Medications Current Medications Medications Dose Ordered Sig/Amisha Route Start Time Stop Time Status Last Admin Dose Admin Acetaminophen 650 mg Q6HP PRN PO 07/13/25 22:15 07/18/25 12:26 650 MG Enoxaparin Sodium 30 mg DAILY SC 07/14/25 10:00 07/21/25 10:32 30 MG Pantoprazole Sodium 40 mg DAILY IV 07/14/25 10:00 07/21/25 10:30 40 MG Insulin Glargine 10 units QAM SC 07/14/25 07:00 07/21/25 05:47 10 UNITS Diagnostic Test (Pha) 1 strip Q6HR 07/14/25 00:00 07/21/25 12:06 1 STRIP Insulin Human Regular Q6HR SC 07/14/25 00:00 07/21/25 12:12 6 UNITS Dextrose 50 ml UD PRN IV 07/13/25 23:30 Hydralazine HCl 10 mg Q6HP PRN IV 07/15/25 04:45 07/15/25 05:00 10 MG Amlodipine Besylate 10 mg DAILY PO 07/15/25 10:00 07/21/25 10:32 10 MG Acetaminophen/ Hydrocodone Bitart 1 tab Q6HPRN PRN PO 07/15/25 15:00 07/20/25 15:55 1 TAB Hydroxyzine Pamoate 50 mg Q6HP PRN PO 07/16/25 10:30 07/18/25 13:43 50 MG Enteral Nutritional Formula 240 ml TIDWM PO 07/16/25 12:00 07/21/25 12:00 240 ML Lactulose 10 ml BID PO 07/18/25 10:09 07/21/25 10:30 10 ML Nitrofurantoin Macrocrystals 100 mg BID PO 07/18/25 22:00 07/21/25 10:30 100 MG Laboratory Results Laboratory Tests 07/19/25 11:53 07/20/25 04:43 Urinalysis Test 07/13/25 18:55 Urine Color Dark-brown (Yellow) Urine Clarity Ex.turbid (Clear) Urine pH 5.5 (5.0-9.0) Urine Specific [place] 1.012 (1.001-1.035) Urine Protein 2+ (Negative) H Urine Ketones 1+ (Negative) H Urine Blood 2+ /uL (Negative) H Urine Nitrite Negative (Negative) Urine Bilirubin Negative (Negative) Urine Urobilinogen 2 mg/dL (Negative) H Urine Leukocyte Esterase 3+ /uL (Negative) Urine RBC 18 /hpf (0 - 4) Urine WBC Clumps Present /hpf (None Seen) Urine Microscopic WBC 5918 /HPF (0-5) H Urine Squamous Epithelial Cells Few /hpf (<5) Urine Bacteria None seen /hpf (None Seen) Urine Glucose 2+ mg/dL (Normal) H Microbiology Microbiology Date/Time Source Procedure Growth Status 07/13/25 23:25 Blood Blood Culture - Final NO GROWTH AFTER 5 DAYS OF INCUBATION. Complete 07/13/25 18:55 Urine - [place] Urine Culture - Final Complete Assessment/Plan Assessment/Plan Sepsis due to UTI Acute complicated UTI Viral Influenza infection Leukocytosis Neutrophilia Tachypnea Acute toxic metabolic encephalopathy, due to above YVONNE due to VMN Nonobstructive nephrolithiasis left Given patient's family wanting or to go home and canceled a senior living facility I will change social Service to arrange for home physical therapy. Since she already has DME at home she can be discharged home with oral antibiotic. We will send Macrodantin antibiotic for five days to her pharmacy. Discussed with the nurse. Plan discussed with: Patient, Other My Orders Orders - BREEZY CASTILLO MD Procedure Category Date Status Time * Textile Technologist CONS 07/21/25 Transmitted Consult 16:57 Discharge DISCHARGE 07/21/25 Transmitted 16:57 Communication Order ORDERS 07/21/25 Transmitted 16:57 Date of Service: Jul 21, 2025 Billing Provider: BREEZY CASTILLO MD Common Visit Codes: [id number] INP/OBS CARE(MOD) BREEZY CASTILLO MD Jul 21, 2025 17:01
[2025-07-22 02:00] VITALS: BP 137/91; PULSE 68; RESP 15; TEMP 98; O2SAT 99
[2025-07-22 05:00] VITALS: BP 144/67; PULSE 71; RESP 16; TEMP 97.5; O2SAT 99
--- NOTE | 2025-07-22 11:54 | DVHDS2 ---
Discharge Summary Date of Admission Jul 13, 2025 at 22:14 Date of Discharge: Jul 22, 2025 Labs/Diagnostic Data: Laboratory Results Test 07/22/25 05:13 07/20/25 10:43 07/20/25 04:43 07/19/25 11:53 POC Glucose 170 mg/dl (70-106) Ammonia 27 umol/L (11-32) Sodium Level 132 mmol/L (136-145) Potassium Level 4.8 mmol/L (3.5-5.1) Chloride Level 99 mmol/L (98-107) Carbon Dioxide Level 22 mmol/L (20-31) Anion Gap 11 (5-15) Blood Urea Nitrogen 9 mg/dL (9-23) Creatinine 1.03 mg/dL (0.550-1.02) Glomerular Filtration Rate Calc 55 mL/min (>90) BUN/Creatinine Ratio 8.7 (10.0-20.0) Serum Glucose 164 mg/dL (74-106) Calcium Level 10.1 mg/dL (8.7-10.4) Thyroid Stimulating Hormone (TSH) 4.06 uIU/mL (0.55-4.78) White Blood Count 11.8 10^3/uL (4.4-10.8) Red Blood Count 4.88 10^6/uL (4.0-5.20) Hemoglobin 12.9 g/dL (12.2-16.2) Hematocrit 39.6 % (36.0-46.0) Mean Corpuscular Volume 81.0 fL (80.0-100.0) Mean Corpuscular Hemoglobin 26.5 pg (28.0-32.0) Mean Corpuscular Hemoglobin Concent 32.7 g/dL (32.0-36.0) Red Cell Distribution Width 13.1 % (11.8-14.3) Platelet Count 427 10^3/uL (140-450) Mean Platelet Volume 8.5 fL (6.9-10.8) Neutrophils (%) (Auto) 75.3 % (37.0-80.0) Lymphocytes (%) (Auto) 14.0 % (10.0-50.0) Monocytes (%) (Auto) 7.0 % (0.0-12.0) Eosinophils (%) (Auto) 3.2 % (0.0-7.0) Basophils (%) (Auto) 0.5 % (0.0-2.0) Neutrophils # (Auto) 8.9 10 ^3/uL (1.6-8.6) Lymphocytes # (Auto) 1.6 10 ^3/uL (0.4-5.4) Monocytes # (Auto) 0.8 10 ^3/uL (0-1.3) Eosinophils # (Auto) 0.4 10 ^3/uL (0-0.8) Basophils # (Auto) 0.1 10 ^3/uL (0-0.2) Nucleated Red Blood Cells 0.0 % Total Bilirubin 0.3 mg/dL (0.2-1.0) Aspartate Amino Transferase (AST) 18 U/L (13-40) Alanine Aminotransferase (ALT) < 9 U/L (7-40) Alkaline Phosphatase 138 U/L (46-116) Total Protein 8.0 g/dL (5.7-8.2) Albumin 4.0 g/dL (3.2-4.8) Test 07/19/25 11:29 07/14/25 03:06 07/13/25 23:00 07/13/25 20:54 Blood Gas Specimen Type Arterial Blood Gas Sample Site Right radial Blood Gas Patient Temperature 37.0 Arterial Blood Date Drawn [id number] Arterial Blood pH 7.429 (7.350-7.450) Arterial Blood Partial Pressure CO2 34.8 mmHg (32.0-45.0) Arterial Blood Partial Pressure O2 73.7 mmHg (83.0-108.0) Arterial Blood HCO3 22.5 mmol/L (21.0-28.0) Arterial Blood Oxygen Saturation 93.7 % (94.0-98.0) Arterial Blood Base Excess -1.2 mmol/L (-2.0-3.0) Arterial Blood Oxyhemoglobin 92.9 % (94.0-98.0) Arterial Blood Carboxyhemoglobin 0.5 % (0.5-1.5) Arterial Blood Methemoglobin 0.4 % (0.0-1.5) Avel Test Yes Blood Gas Total Hemoglobin 13.70 g/dL (12.0-16.0) Blood Gas Modality Room air FiO2 % 21.0 Urine Opiates Screen Neg (NEGATIVE) Urine Fentanyl Screen Neg (NEGATIVE) Urine Barbiturates Screen Neg (NEGATIVE) Urine Phencyclidine Screen Neg (NEGATIVE) Urine Amphetamines Screen Neg (NEGATIVE) Urine Benzodiazepines Screen Neg (NEGATIVE) Urine Cocaine Screen Neg (NEGATIVE) Urine Cannabinoids Screen Neg (NEGATIVE) Influenza Type A Antigen Positive (Negative) Influenza Type B Antigen Positive (Negative) SARS-CoV-2 Antigen (Rapid) Negative (NEGATIVE) Troponin I High Sensitivity 3 ng/L (</=34) Test 07/13/25 18:55 07/13/25 15:51 Urine Color Dark-brown (Yellow) Urine Clarity Ex.turbid (Clear) Urine pH 5.5 (5.0-9.0) Urine Specific [place] 1.012 (1.001-1.035) Urine Protein 2+ (Negative) Urine Ketones 1+ (Negative) Urine Blood 2+ /uL (Negative) Urine Nitrite Negative (Negative) Urine Bilirubin Negative (Negative) Urine Urobilinogen 2 mg/dL (Negative) Urine Leukocyte Esterase 3+ /uL (Negative) Urine RBC 18 /hpf (0 - 4) Urine WBC Clumps Present /hpf (None Seen) Urine Microscopic WBC 5918 /HPF (0-5) Urine Squamous Epithelial Cells Few /hpf (<5) Urine Bacteria None seen /hpf (None Seen) Urine Glucose 2+ mg/dL (Normal) Hemoglobin A1c 9.5 % A1C (<5.7) Lactic Acid Level 1.6 mmol/L (0.4-2.0) B-Type Natriuretic Peptide 288.09 pg/mL (0-100) Lipase 33 U/L (12-53) Other Laboratory Tests 07/20/25 04:43 07/19/25 11:53 Brief Hx & Hospital Course: Luz Elena Patel is a 79 year old female, with past medical history of dementia, hypertension, hyperlipidemia and DM type 2. The patient was brought to the ED via EMS. The family reported to EMS team that they noticed the patient with altered mental status from baseline, lethargic and elevated blood pressure. On the ED the UA is positive, WBC: 11.2 X10e3/ul, and hyperglycemic 248mg/dl. The patient is a confused at the moment, oriented only in person,she is a poor historian. We will contact the family to obtain further details. At the moment vital signs are within normal limits, patient is not in distress. The patient will be admitted for further evaluation and management. Cardiovascular: HTN, hyperipidemia 07/14: Patient A&O x1, no complaints, continuing IV antibiotics for urosepsis. 07/15: Patient is still A&O x1 at baseline, a grandson was here to visit her, he was unconcerning, likely this is pretty close to her baseline. Still waiting for cultures urine. Continuing IV antibiotics. 07/16: patient sleepy today. will stop xanax for anxiety, hydroxyzine instead. will add meal replacement ensure. continue iv antibiotics. 07/17: Patient to get PT eval today. Continuing IV antibiotics. If stable will likely be DC tomorrow. Unable to establish contact with any family to establish baseline function. 07/18: Plan was to discharge patient today with antibiotics but she has not been working with PT. need to work with PT, will remove zuniga. per grandson, who may have care-taker fatigue, patient walks with a walker at home. Son comes daily morning, but otherwise does not seem to be overly concerned with her baseline mentation as patient has advanced Alzheimer's.. Patient used to have home health for wound care for back bed sores but they improved and home health had discharged the patient. Patient may benefit this time again with home health for med management and possibly home PT, pending PT eval today. likely dc tomorrow 07/19: Patient is seen at bedside today, she is very somnolent. We got labs which all seem unconcerning, patient had decreased breath sounds right side x- ray also unconcerning. ABG taken for concern for hypercarbia, which was also unconcerning. I do not see any focal neurological deficits. No sedatives given. We will monitor 1 more day, SNF PT rehab as recommended by PT ashley, order has been placed for social. If patient continues to improve we will likely DC tomorrow. Family did not want her to go to [facility] facility. Therefore social Service arranging home health, home physical therapy and being discharged home in stable condition. Condition at Discharge: Fair Final Diagnosis/Problems List Sepsis due to UTI Acute complicated UTI Viral Influenza infection, completed treatment course physical deconditioning Leukocytosis, resolved Neutrophilia, resolved Tachypnea, resolved Acute toxic metabolic encephalopathy, due to above, resolved back to baseline YVONNE due to VMN, resolved Nonobstructive nephrolithiasis left Alzheimer's dementia, advanced age HTN, hyperipidemia Discharge Disposition: Home with Health Services Discharge Instruct/Medications Diet: See Comment Diet comment: soft mechanical diet Activity: See Comment Activity comment: ambulation. work with PT, ambulation with assist until PT clears. Follow Up/Referral: See below Medications: See below Scheduled Aspirin (Aspir-81), 1 TAB PO DAILY, (Reported) Atorvastatin Calcium (Atorvastatin Calcium), 1 TAB PO DAILY, (Reported) Dicyclomine HCl (Dicyclomine Hydrochloride), 1 TAB PO TID, (Reported) Gabapentin (Neurontin), 600 MG PO TID, (Reported) Levothyroxine Sodium (Levothyroxine Sodium), 25 MCG PO DAILY, (Reported) Nitrofurantoin (Nitrofurantoin), 1 CAP PO BID Simvastatin (Simvastatin), 40 MG PO DAILY, (Reported) [Lantus], 45 UNITS SUBCUT HS, (Reported) [Pantoprazole 40MG Tablets], 40 MG PO DAILY, (Reported) Miscellaneous Medications Finerenone (Kerendia), 10 MG PO, (Reported) Oxybutynin Base (Oxytrol), 5 MG TD, (Reported) [Humulog], (Reported) Discontinued Medications Cefdinir (Cefdinir), 1 CAP PO BID Discharge Statement: "Patient was advised to return to the ER or call 911 if any headaches, dizziness, shortness of breath, chest pain, abdominal pain, bleeding, fevers, or worsening of medical condition. Patient was counseled about treatment plan, medications, possible side effects, patientverbalized understanding. All questions were answered to the best of my ability. This discharge took greater then 30 minutes in planning, reviewing documentation, counseling the patient, and discussing with other team members." ASSESSMENT ASSESSMENT Assessment Sepsis due to UTI Acute complicated UTI Viral Influenza infection, completed treatment course physical deconditioning Leukocytosis, resolved Neutrophilia, resolved Tachypnea, resolved Acute toxic metabolic encephalopathy, due to above, resolved back to baseline YVONNE due to VMN, resolved Nonobstructive nephrolithiasis left Alzheimer's dementia, advanced age HTN, hyperipidemia Date of Service: Jul 22, 2025 Billing Provider: BREEZY CASTILLO MD Common Visit Codes: 96309-BCW/OBS DISCH DAY >30min BREEZY CASTILLO MD Jul 22, 2025 11:54
[2025-07-22 12:57] VITALS: BP 152/66; TEMP 36.4
== END 2025-07-22 14:40 | disposition home health service (06) | DRG 871 ==
LOC: ER 14:55 → EDBD 14:55 → EDUNIT# 14:55 → OVERFLOW 22:14 → CENTRAL 07-14 06:26
PROVIDERS: ADMIT Student in an Organized Health Care Education/Training Program; ATTEND Student in an Organized Health Care Education/Training Program
DX: A41.9 Sepsis, unspecified organism (principal); G92.8 Other toxic encephalopathy; N17.0 Acute kidney failure with tubular necrosis; N39.0 Urinary tract infection, site not specified; E87.1 Hypo-osmolality and hyponatremia; F02.84 Dementia in other diseases classified elsewhere, unspecified severity, with anxiety; E11.65 Type 2 diabetes mellitus with hyperglycemia; J11.1 Influenza due to unidentified influenza virus with other respiratory manifestations; N20.0 Calculus of kidney; Z20.822 Contact with and (suspected) exposure to COVID-19; D64.9 Anemia, unspecified; E78.5 Hyperlipidemia, unspecified; G30.9 Alzheimer's disease, unspecified; I10 Essential (primary) hypertension; I25.10 Atherosclerotic heart disease of native coronary artery without angina pectoris; Z88.0 Allergy status to penicillin; Z79.84 Long term (current) use of oral hypoglycemic drugs; Z79.899 Other long term (current) drug therapy
CPT/HCPCS: 36415; 36600; 71045; 76775; 80048; 80053; 80307; 81001; 82140; 82805; 82962; 83036; 83605; 83690; 83880; 84443; 84484; 85025; 87040; 87086; 87426; 87804; 93005; 96361; 96365; 97110; 97116; 97530; G0378; G9035; J1815; J2470

== ENCOUNTER 2025-09-09 08:15 | Emergency (ER) | payer OTHER, MEDICAID ==
[~2025-09-09] VITALS: Ht 165.1 cm; Wt 100.0 kg
[~2025-09-09 08:15] MED LIST changes: +ASPI1TAB20 PO; +ATOR20TA50 PO; -CEFD300C2 PO; +FINE10TA PO; +NITR-52 PO; +OXYB3.9D TD
--- NOTE | 2025-09-09 08:40 | ED.PDOC ---
Liliane. trauma (HPI) HPI Comments 79 y/o F, accompanied by relative, with PMHx of Alzheimer's, HLD, CAD, HTN, and DM presents to the ED for CC of s/p fall injury. Patient's relative relays, patient suffered a mechanical trip and fall x2days ago while attempting to exit the shower injuring the right 4th digit on her foot. Per relative, right 4th digit has become increasingly swollen and discolored since, accident. Family member denies loss of consciousness, head injury, lacerations, or headache. No other associated symptoms, modifiers, recent injuries or sick contacts present at this time. Chief Complaint: Fall Injury Time Seen by MD: 08:30 Primary Care Provider: CHYNA Sheffield notes: Nurses Notes, Medications, Allergies Allergies: Coded Allergies: Penicillins (Verified Allergy, Unknown, 05/26/23) Uncoded Allergies: CONTRAST (Allergy, Unknown, 05/14/23) IV CONTRAST (Allergy, Unknown, 05/14/23) Home Meds Active Scripts Nitrofurantoin (Nitrofurantoin) 100 Mg Cap, 1 CAP PO BID, #10 CAP Prov:BREEZY CASTILLO MD 07/21/25 Reported Medications Atorvastatin Calcium (ATORVASTATIN CALCIUM) 20 Mg Tab, 1 TAB PO DAILY, #30 TAB 5 Refills 07/14/25 Aspirin (Aspir-81) 81 Mg Tab, 1 TAB PO DAILY, #30 TAB 5 Refills 07/14/25 Finerenone (Kerendia) 10 Mg Tab, 10 MG PO, TAB 07/14/25 Oxybutynin Base (Oxytrol) 3.9 Mg/24 Hr Dis, 5 MG TD, DIS 07/14/25 Dicyclomine HCl (Dicyclomine Hydrochloride) 20 Mg Tab, 1 TAB PO TID 02/04/25 Simvastatin (Simvastatin) 40 Mg Tab, 40 MG PO DAILY 12/25/12 Levothyroxine Sodium (Levothyroxine Sodium) 25 Mcg Tab, 25 MCG PO DAILY 12/25/12 [Humulog] No Conflict Check 12/25/12 [Lantus] No Conflict Check, 45 UNITS SUBCUT HS 12/25/12 [Pantoprazole 40MG Tablets] No Conflict Check, 40 MG PO DAILY 12/25/12 Gabapentin (Neurontin) 300 Mg Cap, 600 MG PO TID, 0 Refills 04/19/10 Information Source: Patient, Relative Mode of Arrival: Wheelchair Severity: Moderate Timing: Days Duration: Since onset Prehospital treatment: None Location: (R) Foot (4th digit) Mechanism: Fall Associated signs and symtoms: None Past Medical History PAST MEDICAL HISTORY: Alzheimer, CAD, DM, High Lipids, HTN Surgical History: Hysterectomy, Pacemaker CHIEF PROCUREMENT OFFICER History: No Pertinent CHIEF PROCUREMENT OFFICER History Family History Family History: Unknown Social History Smoker: Non-Smoker Alcohol: Denies ETOH Use Drugs: Denies Drug Use Lives In: Home Constitutional: denies: chills, diaphoresis, fatigue, fever, malaise, sweats, weakness, others EENTM: denies: blurred vision, double vision, ear bleeding, ear discharge, ear drainage, ear pain, ear ringing, eye pain, eye redness, hearing loss, mouth pain, mouth swelling, nasal discharge, nose bleeding, nose congestion, nose pain, photophobia, tearing, throat pain, throat swelling, voice changes, others Respiratory: denies: cough, hemoptysis, orthopnea, SOB at rest, shortness of breath, SOB with excertion, stridor, wheezing, others Cardiovascular: denies: chest pain, dizzy spells, diaphoresis, Dyspnea on exertion, edema, irregular heart beat, left arm pain, lightheadedness, palpitations, PND, syncope, others Gastrointestinal: denies: abdomen distended, abdominal pain, blood streaked bowels, constipated, diarrhea, dysphagia, difficulty swallowing, hematemesis, melena, nausea, poor appetite, poor fluid intake, rectal bleeding, rectal pain, vomiting, others Genitourinary: denies: abnormal vagina bleeding, burning, dyspareunia, dysuria, flank pain, frequency, hematuria, incontinence, pain, , vagina discharge, urgency, others Neurological: denies: dizziness, fainting, headache, left sided numbness, left sided weakness, numbness, paresthesia, pre-existing deficit, right sided numbness, right sided weakness, seizure, speech problems, tingling, tremors, weakness, others Musculoskeletal: reports: others (right 4th toe pain); denies: back pain, gout, joint pain, joint swelling, muscle pain, muscle stiffness, neck pain Integumetry: denies: bruises, change in color, change in hair/nails, dryness, laceration, lesions, lumps, rash, wounds, others Allergic/Immunocompromised: denies: Difficulty Healing, Frequent Infections, Hives, Itching, others Hematologic/Lymphatic: denies: anemia, blood clots, easy bleeding, easy bruising, swollen glands, others Endocrine: denies: excessive hunger, excessive sweating, excessive thirst, excessive urination, flushing, intolerance to cold, intolerance to heat, unexplained weight gain, unexplained weight loss, others Psychiatric: denies: anxiety, bipolar disorder, depression, hopeless, panic disorder, schizophrenia, sleepless, suicidal, others All Other Systems: Reviewed and Negative Physical Exam General Appearance: Mild Distress, Obese HEENT: Normal ENT Inspection, Pharynx Normal, TMs Normal Neck: Full Range of Motion, Non-Tender, Normal, Normal Inspection Respiratory: Chest Non-Tender, Lungs Clear, No Accessory Muscle Use, No Respiratory Distress, Normal Breath Sounds Cardiovascular: No Edema, No JVD, No Murmur, No Gallop, Normal Peripheral Pulses, Regular Rate/Rhythm Breast Exam: Deferred Gastrointestinal: No Organomegaly, Non Tender, No Pulsatile Mass, Normal Bowel Sounds, Soft Genitalia: Deferred Pelvic: Deferred Rectal: Deferred Extremities: No calf tenderness, Normal capillary refill, No pedal edema Musculoskeletal : Location: Right Extremity Location: Foot, Toe 4 Apperance: Tenderness: Mild Neurologic: Alert, rehab nurse II-XII nml as Tested, No Motor Deficits, Normal Affect, Normal Mood, No Sensory Deficits Cerebellar Function: Normal Reflexes: Normal Skin: Dry, Normal Color, Warm Lymphatic: No Adenopathy Was a procedure done? Was a procedure done?: No Differential Diagnosis Multiple Trauma: Fractures X-Ray, Labs, Meds, VS Vital Signs Date Time Temp Pulse Resp B/P (MAP) Pulse Ox O2 Delivery O2 Flow Rate FiO2 09/09/25 08:37 60 16 93 Room Air 09/09/25 08:37 98.1 60 16 135/49 (77) 93 98.1 09/09/25 08:18 98.6 60 13 131/46 95 98.6 X-RAY OF THE RIGHT FOOT SHOWS: IMPRESSION: 1. No definite evidence of acute bony abnormality. Chronic appearing deformity at the distal aspect of the proximal phalanx of the great toe may be sequelae of old trauma. Correlate with clinical findings. If there remains clinical suspicion for acute fracture, follow-up radiographs or MRI could be considered. At this time, the patient is being discharged and will follow up with the primary care doctor The patient will return to the emergency department's condition worsens The patient is to follow up with the primary care doctor if the pain worsens. We did explain that sometimes a fracture can be subtle and may require either a CAT scan or MRI. The patient is discharged Images Reviewed?: Images reviewed and evaluated by me Time of 1ST Reevaluation: 09:00 Reevaluation 1ST: Unchanged Time of 2ND Reevaluation: 09:47 Reevaluation 2ND: Improved Patient Education/Counseling: Diagnosis, Treatment, Prognosis, Need For Follow Up Family Education/Counseling: Diagnosis, Treatment, Prognosis, Need For Follow Up Departure 1 Departure Time of Disposition: 09:46 Impression: Primary Impression: Contusion of right foot Qualified Codes: S90.31XA - Contusion of right foot, initial encounter Disposition: HOME / SELF CARE / HOMELESS Condition: Fair Discharged With: Self Critical Care Note Critical Care Time?: No Stability Stability form required: No Heart Score Heart Score: Heart Score Response (Comments) Value History N/A 0 EKG N/A 0 Age N/A 0 Risk Factors N/A 0 Troponin N/A 0 Total 0 I personally scribed for CHRISTOPHER NOVA MD ([email or web address]) on 09/09/25 at 08:40. Iveth ctronically submitted by Mehnaz Baez ([email or web address]). CHRISTOPHER NOVA MD Sep 09, 2025 08:40
--- NOTE | 2025-09-09 09:42 | DVH ---
CLINICAL INFORMATION: 79 years old, Female; trauma. TECHNIQUE: 3 views of the right foot were obtained. COMPARISON: None. FINDINGS: No definite acute fracture or dislocation. There is chronic deformity at the distal aspect of the proximal phalanx of the great toe, may be sequelae of old trauma. Moderate arthritic changes a t the 1st MTP joint. Hallux valgus deformity. Moderate arthritic changes at the cuneonavicular joint. There is mild soft tissue swelling at the medial aspect of the forefoot near the 1st MTP joint. Ther e are calcifications along the medial aspect of the 1st metatarsal head, along the expected course of the medial collateral ligament. No radiopaque foreign body. IMPRESSION: 1. No definite evidence of acute bony abnormality. Chronic appearing deformity at the distal aspect o f the proximal phalanx of the great toe may be sequelae of old trauma. Correlate with clinical findi ngs. If there remains clinical suspicion for acute fracture, follow-up radiographs or MRI could be co nsidered. 2. Additional chronic appearing findings as described above.
[2025-09-09 09:59] VITALS: BP 158/58; PULSE 60; RESP 17; TEMP 97.6; O2SAT 96
== END 2025-09-09 10:00 | disposition home or self-care (01) ==
LOC: ER 08:18
DX: S90.31XA Contusion of right foot, initial encounter (principal); I10 Essential (primary) hypertension; E11.9 Type 2 diabetes mellitus without complications; E78.5 Hyperlipidemia, unspecified; G30.9 Alzheimer's disease, unspecified; I25.10 Atherosclerotic heart disease of native coronary artery without angina pectoris; Z79.82 Long term (current) use of aspirin; Z79.899 Other long term (current) drug therapy; Z90.710 Acquired absence of both cervix and uterus; Z88.0 Allergy status to penicillin; Z95.0 Presence of cardiac pacemaker; W01.0XXA Fall on same level from slipping, tripping and stumbling without subsequent striking against object, initial encounter; Y93.89 Activity, other specified; Y92.89 Other specified places as the place of occurrence of the external cause; Y99.8 Other external cause status
CPT/HCPCS: 73630